=== PATIENT | male | born 1970 | race Caucasian/White ===

== ENCOUNTER 2022-10-06 07:59 | Emergency (ER) | payer OTHER ==
--- OUTSIDE RECORDS SUMMARY | 2022-10-06 08:02 | XMS REPORT | Continuity of Care Document ---
:1970 Author Organization [facility] t Address [address] [place] [address] Care Team Providers Name Role Phone Malina Cruz Attending Clinician Unavailable Navdeep Rodriguez Attending Clinician Unavailable Haley Cabrera Attending Clinician Unavailable Payers Payer Name Policy Type Policy Number Effective Date Expiration Date S [place] [id number] [id number] 2021 Common [facility] 00:00:00 [facility] Blue Cross Blue [id number] 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 [id number] History of Problem Co mmon attention [facility] deficit - [facility] disorder [facility] [id number] Vitamin D Problem Comm on deficiency [facility] Nicotine Nicotine Problem Commo n dependence dependence Sp rachna [facility] [id number] Leukocytos Problem Co mmon is, Spirit unspecifie - [facility] d type [facility] [id number] Elevated Problem Comm on serum Spirit creatinine [facility] Hyperlipid Other Problem Commo n emia hyperlipid [facility] emia [facility] Allergies, Adverse Reactions, Alerts This patient has no known allergies or adverse reactions. Social History Social Habit Start Date Stop Date Quantity Comments Source History of Tobacco Current Smoker Co mmon Spirit - [facility] Use [facility] Sex Assigned At Com mon [facility] Smoking Status Start Date Stop Date Source Current Smoker 2022 00:00:00 Common Spiri [facility] Medications Ordered Filled Start Stop Current Ordering Indication Dosage Frequency Signature Comments Components Source Medication Medication Date Date Medication? Clinician (SIG) Name Name Gentamicin Gentamicin 2021-10 No 240mg Common 80mg 80mg 12-06 Spirit 00:: - [facility] levoFLOXaci levoFLOXaci 2021-10- No QD levoFLOXac n 500 MG n 500 MG 11-22 in 500 MG 00:00: 00:00 00 :00 Methocarbam Methocarbam 2021- No 1{table Methocarba ol 500 MG ol 500 MG 12-07 t} mol 500 MG 00:00: 00:00 00 :00 Methocarbam Methocarbam 2021- No 1{table Methocarba ol 500 MG ol 500 MG 12-07 t} mol 500 MG 00:00: 00:00 00 :00 Ciprofloxac Ciprofloxac 2021-0 2- No 1{table BID Ciprofloxa in HCl 500 in HCl 500 23 03-09 t} sherri HCl MG MG 00:00: 00:00 500 MG 00 :00 buPROPion buPROPion 2019-10 No 1{table QD buPROPion HCl ER (XL) HCl ER (XL) 0-27 t_in_ HCl ER 300 MG 300 MG 00:00: e_morni (XL) 300 00 ng} MG Melatonin Melatonin Yes Haley 1 tablet Common Millender at bedtime Spir it as needed - [facility] with food [facility] Benadryl Benadryl Yes Haley 1 capsule C ommon Millender at bedtime Spir it for sleep - [facility] and [facility] Wellbutrin Wellbutrin Yes Haley 1 tablet Common XL XL Millender in the Spirit morning - [facility] Vitamin D3 Vitamin D3 Yes Haley 1 capsule Common Millender Spirit [facility] Benadryl 25 Benadryl 25 No QD Benadryl MG MG 25 MG Unisom Unisom No 1{table QD Unisom SleepTabs SleepTabs t_at_be SleepTabs 25 MG 25 MG dtime_a 25 MG s_neede d} buPROPion buPROPion No buPROPion HCl ER (XL) HCl ER (XL) HCl ER 300 MG 300 MG (XL) 300 MG Benadryl 25 Benadryl 25 No QD Benadryl MG MG 25 MG Unisom Unisom No 1{table QD Unisom SleepTabs SleepTabs t_at_be SleepTabs 25 MG 25 MG dtime_a 25 MG s_neede d} buPROPion buPROPion No buPROPion HCl ER (XL) HCl ER (XL) HCl ER 300 MG 300 MG (XL) 300 MG buPROPion buPROPion No buPROPion HCl ER (XL) HCl ER (XL) HCl ER 300 MG 300 MG (XL) 300 MG Benadryl 25 Benadryl 25 No QD Benadryl MG MG 25 MG Unisom Unisom No 1{table QD Unisom SleepTabs SleepTabs t_at_be SleepTabs 25 MG 25 MG dtime_a 25 MG s_neede d} Benadryl 25 Benadryl 25 No QD Benadryl MG MG 25 MG Unisom Unisom No 1{table QD Unisom SleepTabs SleepTabs t_at_be SleepTabs 25 MG 25 MG dtime_a 25 MG s_neede d} buPROPion buPROPion No buPROPion HCl ER (XL) HCl ER (XL) HCl ER 300 MG 300 MG (XL) 300 MG buPROPion buPROPion No buPROPion HCl ER (XL) HCl ER (XL) HCl ER 300 MG 300 MG (XL) 300 MG Unisom Unisom No 1{table QD Unisom SleepTabs SleepTabs t_at_be SleepTabs 25 MG 25 MG dtime_a 25 MG s_neede d} Benadryl 25 Benadryl 25 No QD Benadryl MG MG 25 MG Benadryl 25 Benadryl 25 No QD Benadryl MG MG 25 MG buPROPion buPROPion No buPROPion HCl ER (XL) HCl ER (XL) HCl ER 300 MG 300 MG (XL) 300 MG Benadryl 25 Benadryl 25 No QD Benadryl MG MG 25 MG Benadryl 25 Benadryl 25 No QD Benadryl MG MG 25 MG buPROPion buPROPion No buPROPion HCl ER (XL) HCl ER (XL) HCl ER 300 MG 300 MG (XL) 300 MG Benadryl 25 Benadryl 25 No QD Benadryl MG MG 25 MG buPROPion buPROPion No buPROPion HCl ER (XL) HCl ER (XL) HCl ER 300 MG 300 MG (XL) 300 MG buPROPion buPROPion No buPROPion HCl ER (XL) HCl ER (XL) HCl ER 300 MG 300 MG (XL) 300 MG Benadryl 25 Benadryl 25 No QD Benadryl MG MG 25 MG Vital Signs Vital Name Observation Time Observation Value Comments Source height 2022 16:00:00 70 [in_i] [facility] weight 2022 16:00:00 195 [lb_av] [facility] temperature 2022 16:00:00 97.2 [degF] Common [facility] bmi 2022 16:00:00 27.98 kg/m2 Common [facility] oximetry 2022 16:00:00 99 % Common [facility] respiratory rate 2022 16:00:00 18 /min Comm on [facility] blood pressure 2022 16:00:00 143 mm[Hg] Common [facility] - systolic [facility] blood pressure 2022 16:00:00 79 mm[Hg] Common [facility] - diastolic [facility] height 2022-08-16 08:00:00 70 [in_i] [facility] weight 2022-08-16 08:00:00 190 [lb_av] [facility] temperature 2022-08-16 08:00:00 98.1 [degF] [facility] bmi 2022-08-16 08:00:00 27.26 kg/m2 [facility] oximetry 2022-08-16 08:00:00 98 % Common [facility] respiratory rate 2022-08-16 08:00:00 17 /min Comm on [facility] blood pressure 2022-08-16 08:00:00 120 mm[Hg] Common [facility] - systolic [facility] blood pressure 2022-08-16 08:00:00 76 mm[Hg] Common [facility] - diastolic [facility] height 2022-06-28 08:00:00 69.75 [in_i] Common [facility] weight 2022-06-28 08:00:00 192.2 [lb_av] [facility] temperature 2022-06-28 08:00:00 97.3 [degF] [facility] bmi 2022-06-28 08:00:00 27.77 kg/m2 Common [facility] oximetry 2022-06-28 08:00:00 100 % Common S [facility] respiratory rate 2022-06-28 08:00:00 16 /min Comm on [facility] blood pressure 2022-06-28 08:00:00 113 mm[Hg] Common [facility] - systolic [facility] blood pressure 2022-06-28 08:00:00 74 mm[Hg] Common [facility] - diastolic [facility] height 2022-06-28 11:30:00 69.75 [in_i] Common [facility] weight 2022-06-28 11:30:00 191.2 [lb_av] [facility] temperature 2022-06-28 11:30:00 98 [degF] Common [facility] bmi 2022-06-28 11:30:00 27.63 kg/m2 Common [facility] oximetry 2022-06-28 11:30:00 93 % Common S [facility] respiratory rate 2022-06-28 11:30:00 16 /min Comm on [facility] blood pressure 2022-06-28 11:30:00 140 mm[Hg] Common [facility] - systolic [facility] blood pressure 2022-06-28 11:30:00 82 mm[Hg] Common [facility] - diastolic [facility] temperature 2022-04-05 08:00:00 97.9 [degF] [facility] bmi 2022-04-05 08:00:00 27.45 kg/m2 Common S [facility] oximetry 2022-04-05 08:00:00 100 % Common S [facility] respiratory rate 2022-04-05 08:00:00 16 /min Comm on [facility] blood pressure 2022-04-05 08:00:00 119 mm[Hg] Common [facility] - systolic [facility] blood pressure 2022-04-05 08:00:00 70 mm[Hg] Common [facility] - diastolic [facility] height 2022-04-05 08:00:00 69.75 [in_i] Common [facility] weight 2022-04-05 08:00:00 190 [lb_av] [facility] height 2022-01-02 09:20:00 69.75 [in_i] Common [facility] weight 2022-01-02 09:20:00 186 [lb_av] Common [facility] temperature 2022-01-02 09:20:00 97.3 [degF] [facility] bmi 2022-01-02 09:20:00 26.88 kg/m2 [facility] oximetry 2022-01-02 09:20:00 100 % [facility] respiratory rate 2022-01-02 09:20:00 16 /min Comm on [facility] blood pressure 2022-01-02 09:20:00 118 mm[Hg] Common [facility] systolic [facility] blood pressure 2022-01-02 09:20:00 75 mm[Hg] Common [facility] diastolic [facility] height 2021-12-07 09:40:00 69.75 [in_i] [facility] weight 2021-12-07 09:40:00 193 [lb_av] [facility] temperature 2021-12-07 09:40:00 97.4 [degF] Common [facility] bmi 2021-12-07 09:40:00 27.89 kg/m2 [facility] oximetry 2021-12-07 09:40:00 100 % [facility] respiratory rate 2021-12-07 09:40:00 16 /min Comm on [facility] blood pressure 2021-12-07 09:40:00 121 mm[Hg] Common [facility] - systolic [facility] blood pressure 2021-12-07 09:40:00 72 mm[Hg] Common [facility] Procedures This patient has no known procedures. Encounters Start End Encounter Admission Attending Care Care Encounter Source Date/Time Date/Time Type Type Clinicians Facility Department ID 2022-08-15 Outpatient [facility], STLMLC STLMLC [id number] Common 07:46:02 Malina [facility] 2022-06-28 Outpatient [facility], STLMLC STLMLC [id number] Common 10:58:00 Malina [facility] 2022-06-27 Outpatient [facility], STLMLC STLMLC [id number] Common 11:36:01 Malina [facility] 2022-06-26 Outpatient [facility]am, STLMLC STLMLC [id number] Common 09:38:00 Malina [facility] 2021-12-29 Outpatient [facility]am, STLMLC STLMLC [id number] Common 08:38:01 Malina [facility] 2021-11-09 Outpatient [facility]am, STLMLC STLMLC [id number] Common 13:42:26 Malina [id number] [facility] 2021-11-09 Outpatient D[facility]am, STLMLC STLMLC [id number] Common 12:38:44 Malina [id number] [facility] 2021-11-09 Outpatient [facility], STLMLC STLMLC [id number] Common 12:36:43 Malina 98096 [facility] 2021-11-09 Outpatient Dallam, STLMLC STLMLC [id number] Common 12:34:21 Malina 26203 [facility] 2021-11-09 Outpatient D[facility]am, STLMLC STLMLC [id number] Common 12:32:54 Malina 09817 [facility] 2021-11-09 Outpatient D[facility]am, STLMLC STLMLC [id number] Common 12:18:23 Malina [id number] [facility] 2021-11-09 Outpatient STLMLC STLMLC [id number] Common 12:16:16 41637 [facility] 2021-11-09 Outpatient Navdeep Rodriguez STLMLC STLMLC [id number] Common 12:11:08 92690 [facility] 2021-11-09 Outpatient Navdeep Rodriguez STLMLC STLMLC [id number] Common 11:59:38 74597 [facility] 2021-11-09 Outpatient Navdeep Rodriguez STLMLC STLMLC [id number] Common 11:59:05 [id number] [facility] 2021-11-09 Outpatient Rick, STLMLC STLMLC [id number] 11:49:32 Haley [id number] [facility] 2022 2022 (PROC) STLMLC STLMLC [id number] Co mmon 00:00:00 00:00:00 Procedure Spir it - [facility] 2022-09-21 2022-09-21 (TEL) STLMLC STLMLC [id number] Co mmon 00:00:00 00:00:00 [facility] 2022-08-16 2022-08-16 PREV VISIT STLMLC STLMLC [id number] Common 00:00:00 00:00:00 EST AGE [facility] 40-64 - [facility] 2022-06-28 2022-06-28 OFFICE STLMLC STLMLC [id number] Co mmon 00:00:00 00:00:00 VISIT EST Spir it PT LEVEL 3 - [facility] 2022-06-28 2022-06-28 OFFICE STLMLC STLMLC [id number] Co mmon 00:00:00 00:00:00 VISIT NEW Spir it PT LEVEL 3 - [facility] 2022-04-05 2022-04-05 OFFICE STLMLC STLMLC [id number] Co mmon 00:00:00 00:00:00 VISIT Spirit ESTAB PT - [facility] LEVEL 4 [facility] 2022-01-10 2022-01-10 (TEL) STLMLC STLMLC [id number] Co mmon 00:00:00 00:00:00 [facility] 2022-01-02 2022-01-02 OFFICE STLMLC STLMLC [id number] Co mmon 00:00:00 00:00:00 VISIT [facility] ESTAB PT - [facility] L[facility] 4 [facility] 2021-12-07 2021-12-07 OFFICE STLMLC STLMLC [id number] Co mmon 00:00:00 00:00:00 VISIT [facility] PT - [facility] LEVEL 4 [facility] 2021-08-16 2021-08-16 (TEL) STLMLC STLMLC [id number] Co mmon 00:00:00 00:00:00 [facility] 2021-06-08 2021-06-08 Outpatient STLMLC STLMLC [id number] Common 00:00:00 00:00:00 [facility] 2020-12-09 2020-12-09 Outpatient STLMLC STLMLC [id number] Common 00:00:00 00:00:00 [facility] 2020-10-20 2020-10-20 Outpatient STLMLC STLMLC [id number] Common 00:00:00 00:00:00 [facility] 2020-10-13 2020-10-13 Outpatient STLMLC STLMLC [id number] Common 00:00:00 00:00:00 [facility] 2020-09-22 2020-09-22 Outpatient STLMLC STLMLC [id number] Common 00:00:00 00:00:00 [facility] 2020-08-10 2020-08-10 Outpatient STLMLC STLMLC [id number] Common 00:00:00 00:00:00 [facility] 2020-01-18 2020-01-18 [facility] [id number] Common 19:41:00 19:41:00 [facility] [address] [facility] 2019-12-25 2019-12-25 [facility] [id number] Common 08:00:00 08:00:00 [facility] [address] [facility] 2019-02-05 2019-02-05 [facility] [id number] Common 10:21:00 10:21:00 [facility] it [facility] 2019-01-23 2019-01-23 Outpatient [facility] [id number] Common 19:19:00 19:19:00 t [facility] [address] Spir [address] [facility] 2019-01-23 2019-01-23 Out[facility] [id number] Common 08:40:00 08:40:00 t [facility] [address] Spir [address] [facility] 2018-02-07 2018-02-07 Out[facility] [id number] Common 10:45:00 10:45:00 t [facility] [address] Sp[facility] [address] [facility] 2018-01-23 2018-01-23 Out[facility] [id number] Common 08:30:00 08:30:00 t [facility] [address] Spir [address] [facility] Results This patient has no known results.
[2022-10-06] MEDS ORDERED: MECLIZINE HCL 12.5 MG TAB ONE (08:31)
[2022-10-06] MEDS ORDERED: ONDANSETRON 4 MG/2 ML VIAL ONE (08:31)
[2022-10-06 08:32] LABS: Absolute Lymphocytes (CBC) 1.6 K/uL (0.7-4.9); Hematocrit 45.3 % (39.6-49.0); MCV 89.9 fL (80-100); MPV 7.1 fL (7.6-11.3); RBC Red Blood Cell Count 5.04 M/uL (4.33-5.43)
--- NOTE | 2022-10-06 08:42 | RAD REPORT ---
EXAM DESCRIPTION: RAD - Chest Single View - 10/06/2022 8:36 am CLINICAL HISTORY: SOB COMPARISON: Chest Single View dated 06/15/2017 FINDINGS: Lines: None. Lungs: No evidence of edema or pneumonia. Pleural: No significant pleural effusions or pneumothorax. Cardiac: The heart size is within normal limits. Mediastinum: Within normal limits. Bones: No acute fractures. Other: None IMPRESSION: No acute cardiopulmonary disease.
--- NOTE | 2022-10-06 08:42 | RAD REPORT ---
EXAM DESCRIPTION: CT - Head Brain Wo Cont - 10/06/2022 8:23 am CLINICAL HISTORY: dizziness COMPARISON: Head Brain Wo Cont dated 05/04/2022; Head Brain Wo Cont dated 06/15/2017 TECHNIQUE: All CT scans are performed using dose optimization technique as appropriate and may inclu de automated exposure control or mA/KV adjustment according to patient size. FINDINGS: No intracranial hemorrhage, hydrocephalus or extra-axial fluid collection.No areas of brai n edema or evidence of midline shift. 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 Mild ethmoid air cell thickening. The calvarium is intact. IMPRESSION: No acute intracranial abnormality.
[2022-10-06 08:52] LABS: Potassium 3.8 mmol/L (3.5-5.1); Troponin High Sensitivity 6.8 pg/mL (<58.9)
[2022-10-06] MEDS ORDERED: Ringers Lactate 1,000 ML IV ONE (08:59)
[2022-10-06 09:46] LABS: SARS-COV-2 RT PCR NEGATIVE (NEGATIVE)
--- NOTE | 2022-10-06 10:44 | EDPHYS ---
Physician Documentation [facility] Name: Johnny Priest III Age: 52 yrs Sex: Male : 1970 Arrival Date: 10/06/2022 Time: 08:00 Bed 15 Private MD: ED Physician Benoit Miner HPI: 10/06 08:04 This 52 yrs old Male presents to ER via Ambulatory with complaints of Dizziness, Nausea.[facility] 08:04 Is a 52-year-old male with history of ADHD, manic depression the presents emerged [facility] department with complaints of hot flashes, dizziness. States symptoms are worsened when he stands. Also complains of some nausea but denies vomiting. Denies abdominal pain. Patient is 1 day status post prostate biopsy. Denies any rectal bleeding. Patient states he was advised to go to the ER if he developed any dizziness or weakness. Patient states that last night he was having difficulty with sleep.. Historical: - Allergies: 08:13 NKA; ss - Home Meds: 08:13 Wellbutrin 150 mg Oral 200 mg daily [Active]; ss - PMHx: 08:13 ADD/ADHD; MANIC DEPRESSION; ss - PSHx: 08:14 prostate biopsy; ss - Immunization history:: Client reports receiving the 1st dose of the Covid vaccine. - Social history:: Smoking status: Patient reports the use of cigarette tobacco products, 3/4 ppd. ROS: 08:04 Cardiovascular: Negative for chest pain, palpitations, and edema, Respiratory: Negative [facility] for shortness of breath, cough, wheezing, and pleuritic chest pain. 08:04 Constitutional: Positive for chills, fatigue. 08:04 Cardiovascular: Positive for 08:04 Respiratory: 08:04 Abdomen/GI: Positive for nausea. 08:04 Neuro: Positive for dizziness. 08:04 All other systems are negative. Exam: 08:04 Head/Face: atraumatic. [facility] 08:04 ENT: Moist Mucus Membranes Neck: Trachea midline, Supple Chest/axilla: Normal chest wall appearance and motion. Cardiovascular: Regular rate and rhythm. No edema appreciated Respiratory: Normal respirations, no respiratory distress appreciated Abdomen/GI: Non distended Back: Normal ROM Skin: General appearance color normal MS/ Extremity: Moves all extremities, no obvious deformities appreciated, no edema noted to the lower extremities 08:04 Constitutional: The patient appears in no acute distress, alert, awake. 08:04 Eyes: Extraocular movements: intact throughout, Nystagmus: nystagmus with fast component noted, bilaterally. 08:04 Neuro: Orientation: is normal, Mentation: is normal, Memory: is normal, Cerebellar function: normal finger to nose testing, heel to shah testing is normal. 08:04 Psych: Behavior/mood is pleasant, cooperative. Vital Signs: 08:01 BP 126 / 83; Pulse 88; Resp 16; Temp 97.8(TE); Pulse Ox 100% on R/A; Weight 88.45 kg; ss Height 5 ft. 10 in. (177.80 cm); Pain 0/10; 08:45 BP 112 / 74; Pulse 74; Resp 16; Pulse Ox 96% on R/A; db 09:30 BP 105 / 57; Pulse 79; Resp 18; Pulse Ox 100% on R/A; db 10:15 BP 108 / 74; Pulse 68; Resp 16; Pulse Ox 100% on R/A; db 08:01 Body Mass Index 27.98 (88.45 kg, 177.80 cm) ss MDM: 08:04 Patient medically screened. [facility] 10:42 Data reviewed: vital signs, nurses notes. Counseling: I had a detailed discussion with justino the patient and/or guardian regarding: the historical points, exam findings, and any diagnostic results supporting the discharge/admit diagnosis, lab results, radiology results, the need for outpatient follow up, to return to the emergency department if symptoms worsen or persist or if there are any questions or concerns that arise at home. 10/06 08:09 Order name: Basic Metabolic Panel; Complete Time: 08:58 [facility] 10/06 08:09 Order name: CBC with Diff; Complete Time: 08:37 [facility] 10/06 08:09 Order name: Troponin HS; Complete Time: 08:58 [facility] 10/06 08:09 Order name: XRAY Chest (1 view); Complete Time: 08:44 [facility] 10/06 08:09 Order name: CT Head Brain wo Cont; Complete Time: 08:44 [facility] 10/06 08:10 Order name: COVID-19/FLU A+B; Complete Time: 09:54 [facility] 10/06 08:09 Order name: EKG; Complete Time: 08:09 [facility] 10/06 08:09 Order name: Cardiac monitoring; Complete Time: 08:49 [facility] 10/06 08:09 Order name: EKG - Nurse/Tech; Complete Time: 08:49 [facility] 10/06 08:09 Order name: IV Saline Lock; Complete Time: 08:34 [facility] 10/06 08:09 Order name: Labs collected and sent; Complete Time: 08:49 [facility] 10/06 08:09 Order name: O2 Per Protocol; Complete Time: 08:49 [facility] 10/06 08:09 Order name: O2 Sat Monitoring; Complete Time: 08:49 [facility] Administered Medications: 08:38 Drug: Meclizine 50 mg Route: PO; db 10:56 Follow up: Response: Other; Other dizziness improved db 08:38 Drug: Zofran (Ondansetron) 4 mg Route: IVP; Site: right antecubital; db 10:56 Follow up: Response: No adverse reaction db 08:58 Drug: Lactated Ringers Solution 1000 ml Route: IV; Rate: 1000 bolus; Site: right db antecubital; 10:56 Follow up: Response: No adverse reaction; IV Status: Completed infusion; IV Intake: db 1000ml Disposition: 18:00 Co-signature as Attending Physician, Benoit Miner DO I was immediately available on-site ms3 in the Emergency Department for consultation in the care of the patient. Disposition Summary: 10/06/22 10:43 Discharge Ordered Location: Home [facility] Condition: Stable [facility] Diagnosis - Dizziness [facility] Followup: [facility] - With: Brandon Holloway MD - When: 2 - 3 days - Reason: Recheck today's complaints, Continuance of care, Re-evaluation by your physician Discharge Instructions: - Discharge Summary Sheet [facility] - Benign Positional Vertigo m - Dizziness [facility] - How to Perform the Lizeth Maneuver [facility] Forms: - Medication Reconciliation Form [facility] - Thank You Letter [facility] - Antibiotic Education m - Prescription Opioid Use [facility] - Work release form eb Prescriptions: - Meclizine 25 mg Oral Tablet - take 1 tablet by ORAL route every 8 hours As needed; 30 tablet; Refills: 0, jmm Product Selection Permitted Signatures: Dispatcher [employer] EDRich Hopkins PA PA jmm Smirch, Shelby, RN RN ss Benoit Miner DO DO ms3 Delia Yung RN RN db Corrections: (The following items were deleted from the chart) 08:14 08:13 PSHx: Appendectomy; [facility]
--- NOTE | 2022-10-06 10:44 | ER ---
Nurse's Notes [facility] Name: Johnny Priest III Age: 52 yrs Sex: Male : 1970 Arrival Date: 10/06/2022 Time: 08:00 Bed 15 Private MD: Diagnosis: Dizziness Presentation: 10/06 08:01 Chief complaint: Patient states: "I had a prostate biopsy yesterday and they told me ss that if I had any dizziness to come get checked out." Pt c/o dizziness, intermittent nausea and hot flashes that began this morning. Denies fever. Coronavirus screen: Client denies travel out of the [place] in the last 14 days. Ebola Screen: Patient denies exposure to infectious person. Patient denies travel to an Ebola-affected area in the 21 days before illness onset. Initial Sepsis Screen: Does the patient meet any 2 criteria? No. Patient's initial sepsis screen is negative. Does the patient have a suspected source of infection? No. Patient's initial sepsis screen is negative. Risk Assessment: Do you want to hurt yourself or someone else? Patient reports no desire to harm self or others. Onset of symptoms was October 06, 2022. 08:01 Method Of Arrival: Ambulatory ss 08:01 Acuity: K[place] 3 ss Triage Assessment: 11:08 General: Appears in no apparent distress. comfortable, Behavior is calm, cooperative, db appropriate for age. GI: No deficits noted. No signs and/or symptoms were reported involving the gastrointestinal system. Reports Patient currently denies abdominal pain. Historical: - Allergies: 08:13 NKA; ss - Home Meds: 08:13 Wellbutrin 150 mg Oral 200 mg daily [Active]; ss - PMHx: 08:13 ADD/ADHD; MANIC DEPRESSION; ss - PSHx: 08:14 prostate biopsy; ss - Immunization history:: Client reports receiving the 1st dose of the Covid vaccine. - Social history:: Smoking status: Patient reports the use of cigarette tobacco products, 3/4 ppd. Screenin:23 [facility] ED Fall Risk Assessment (Adult) History of falling in the last 3 months, db including since admission No falls in past 3 months (0 pts) Confusion or Disorientation No (0 pts) Intoxicated or Sedated No (0 pts) Impaired Gait No (0 pts) Mobility Assist Device Used No (0 pt) Altered Elimination No (0 pt) Score/Fall Risk Level 0 - 2 = Low Risk Oriented to surroundings. Abuse screen: Denies threats or abuse. Denies injuries from another. Nutritional screening: No deficits noted. Tuberculosis screening: No symptoms or risk factors identified. Assessment: 08:15 Reassessment: Patient appears in no apparent distress at this time. No changes from db previously documented assessment. Patient and/or family updated on plan of care and expected duration. Pain level reassessed. Patient is alert, oriented x 3, equal unlabored respirations, skin warm/dry/pink. dizziness today that comes and goes. States had prostate biopsy yesterday. Complains of some discomfort at biopsy site. General: Appears in no apparent distress. comfortable, Behavior is calm, cooperative, appropriate for age, quiet. Pain: Complains of pain in prostate. Neuro: No deficits noted. Level of Consciousness is awake, alert, obeys commands, Oriented to person, place, time, situation, Appropriate for age. Cardiovascular: No deficits noted. Respiratory: No deficits noted. Airway is patent Respiratory effort is even, unlabored, Respiratory pattern is regular, symmetrical. GI: Abdomen is flat, non-distended, Patient currently denies abdominal pain. 08:20 Reassessment: patient to CT. db 09:30 Reassessment: Patient appears in no apparent distress at this time. No changes from db previously documented assessment. Patient and/or family updated on plan of care and expected duration. Pain level reassessed. Patient is alert, oriented x 3, equal unlabored respirations, skin warm/dry/pink. 10:55 Reassessment: Patient appears in no apparent distress at this time. No changes from db previously documented assessment. Patient and/or family updated on plan of care and expected duration. Pain level reassessed. Patient is alert, oriented x 3, equal unlabored respirations, skin warm/dry/pink. Patient states feeling better. Patient states symptoms have improved. Vital Signs: 08:01 BP 126 / 83; Pulse 88; Resp 16; Temp 97.8(TE); Pulse Ox 100% on R/A; Weight 88.45 kg; ss Height 5 ft. 10 in. (177.80 cm); Pain 0/10; 08:45 BP 112 / 74; Pulse 74; Resp 16; Pulse Ox 96% on R/A; db 09:30 BP 105 / 57; Pulse 79; Resp 18; Pulse Ox 100% on R/A; db 10:15 BP 108 / 74; Pulse 68; Resp 16; Pulse Ox 100% on R/A; db 08:01 Body Mass Index 27.98 (88.45 kg, 177.80 cm) ED Course: 08:00 Patient arrived in ED. as 08:00 Rich Khan PA is PHCP. m 08:00 Benoit Miner DO is Attending Physician. jmm 08:10 Delia Yung, BIB is Primary Nurse. db 08:13 Triage completed. ss 08:14 Arm band placed on right wrist. ss 08:19 Inserted saline lock: 20 gauge in right antecubital area, using aseptic technique. db Blood collected. 08:24 CT Head Brain wo Cont In Process Unspecified. EDMS 08:38 XRAY Chest (1 view) In Process Unspecified. EDMS 10:43 Brandon Holloway MD is Referral Physician. m 11:07 Patient has correct armband on for positive identification. Placed in gown. Bed in low db position. Call light in reach. Side rails up X 1. Pulse ox on. NIBP on. 11:07 No provider procedures requiring assistance completed. IV discontinued, intact, db bleeding controlled, No redness/swelling at site. Administered Medications: 08:38 Drug: Meclizine 50 mg Route: PO; db 10:56 Follow up: Response: Other; Other dizziness improved db 08:38 Drug: Zofran (Ondansetron) 4 mg Route: IVP; Site: right antecubital; db 10:56 Follow up: Response: No adverse reaction db 08:58 Drug: Lactated Ringers Solution 1000 ml Route: IV; Rate: 1000 bolus; Site: right db antecubital; 10:56 Follow up: Response: No adverse reaction; IV Status: Completed infusion; IV Intake: db 1000ml Medication: 11:08 VIS not applicable for this client. db Intake: 10:56 IV: 1000ml; Total: 1000ml. db Outcome: 10:43 Discharge ordered by . jmm 11:07 Discharged to home ambulatory. db 11:07 Condition: stable 11:07 Discharge instructions given to patient, Instructed on discharge instructions, Prescriptions given X 1. 11:08 Patient left the ED. db Signatures: Dispatcher [employer] EDMS Rich Khan PA PA jmm Martinez, Amelia as Smirch, Shelby, RN RN Delia Yung RN RN db Corrections: (The following items were deleted from the chart) 08:14 08:13 PSHx: Appendectomy; [facility] 10:55 09:30 Reassessment: Patient appears in no apparent distress at this time. No changes db from previously documented assessment. Patient and/or family updated on plan of care and expected duration. Pain level reassessed. Patient is alert, oriented x 3, equal unlabored respirations, skin warm/dry/pink. Patient states feeling better. Patient states symptoms have improved. db
[2022-10-06 11:32] VITALS: TEMP 97.8
[2022-10-06 11:34] VITALS: O2SAT 100
[2022-10-06 11:35] VITALS: BP 108/74
--- NOTE | 2022-10-08 17:04 | EKG ---
Test Date: 2022-10-06 Test Time: 08:44:01 Director Prospect: KIM MEASUREMENT RESULTS: Intervals: Rate: 76 OH: 152 QRSD: 108 QT: 382 QTc: 429 [place]: P: 61 OH: 152 QRS: 16 T: 44 INTERPRETIVE STATEMENTS: Normal sinus rhythm Possible Left atrial enlargement Incomplete right bundle branch block Borderline ECG Compared to ECG 06/15/2017 12:41:51 Incomplete right bundle-branch block now present Sinus bradycardia no longer present Electronically Signed On 10-08-22 17:02:29 [employer]TER by Ta Casarez
== END 2022-10-06 11:08 | disposition home or self-care (01) ==
LOC: ER 07:59
DX: R42 Dizziness and giddiness (principal); Z20.822 Contact with and (suspected) exposure to COVID-19; F17.210 Nicotine dependence, cigarettes, uncomplicated; F33.9 Major depressive disorder, recurrent, unspecified
CPT/HCPCS: 96361; 93005; 85025; 80048; 36415; 84484; 0240U; 70450; 71045; 96374; 99284; J8597; J7120; J2405

== ENCOUNTER 2023-05-18 12:42 | Emergency (ER) | payer OTHER ==
--- OUTSIDE RECORDS SUMMARY | 2023-05-18 12:47 | XMS REPORT | Continuity of Care Document ---
:1970 Author Organization [facility] t Address [address] [place] [address] Care Team Providers Name Role Phone MALINA KILLIAN Primary Care Physician Unavailable Malina Killian Attending Clinician Unavailable Navdeep Rodriguez Attending Clinician Unavailable Haley Cabrera Attending Clinician Unavailable RITA HUBBARD Attending Clinician Unavailable Rita Hubbard MD Attending Clinician Caren Coy MD Attending Clinician Unavailable Beto Huerta Attending Clinician [phone] RITA HUBBARD Admitting Clinician Unavailable Payers Payer Name Policy Type Policy Number Effective Date Expiration Date S michael [employer]ET[employer] HMO POS [id number] 2023 QPOS 00:00:00 [place] [id number] 2021 [facility] 00:00:00 [facility] Blue Cross Blue 6 [id number] 2013 Common [facility] of [place] 00:00:00 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 with with 00:00: Medical intermedia intermedia 00 Ce nter te te recurrence recurrence risk risk (stage (stage T2b-c or T2b-c or [place] 7 [place] 7 or PSA or PSA 10-20) 10-20) [id number] Elevated Problem Comm on PSA [facility] [id number] Prostate Problem Com mon nodule 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 [id number] Bipolar Problem Common affective [facility] disorder, [facility] remission [facility] unspecif Medica l d Center [id number] Hypertrigl Problem Co mmon yceridemia [facility] [id number] Abnormal Problem Comm on urinalysis [facility] [id number] Insomnia, Problem Com mon unspecifie Spirit d type [facility] [id number] Excessive Problem Com mon cerumen in [facility] right ear - [facility] canal [facility] [id number] History of Problem Co mmon attention [facility] deficit - [facility]I disorder [facility] [id number] Vitamin D Problem Comm on deficiency [facility] Nicotine Nicotine Problem Commo n dependence dependence Sp rachna [facility] [id number] Leukocytos Problem Co mmon is, Spirit unspecifie - [facility] d [facility] [id number] Elevated Problem Comm on serum Spirit creatinine [facility] Hyperlipid Other Problem Commo n emia hyperlipid [facility] emia [facility] Allergies, Adverse Reactions, Alerts Allergy Allergy Status Severity Reaction(s) Onset Inactive Treating Comm ents Source Name Type Date Date Clinician NO KNOWN Allergy Active [facility] Social History Social Habit Start Date Stop Date Quantity Comments Source History of tobacco Cigarette Smoker [facility] History SDOH [facility] Transport Non-[facility] Medical Center Alcohol intake 2023-02-27 2023-02-27 Ex-drinker [facility]:00 (finding) Medical Center History [facility] 2023-02-27 2023-02-[address] [facility] Transport Med 00:00:00 00:00:[address] [facility] 2023-02-27 2023-02-[address] [facility] Housing Unable to 00:00:00 00:00:00 Medical Center Pay History [facility] 2023-02-27 2023-02-[address] [facility] Housing Places 00:00:00 00:00:00 Medical Ce nter Lived History [facility] 2023-02-27 2023-02-[address] [facility] Housing Homeless 00:00:00 00:00:00 Medical Center Last Year Cigarettes smoked 2023-02-19 2023-02-[address] [facility] [address] Ludee dee current (pack per 00:00:00 00:00:00 Medical Center day) - Reported Cigarette 2023-02-19 2023-02-[address] [facility] [address] Ludee dee pack-years 00:00:00 00:00:00 Medical Center Tobacco use and 2023-02-19 2023-02-19 User of smokeless [facility] exposure 00:00:00 00:00:00 tobacco Medical Center Sex Assigned At [birth year] M [facility] St Ellie tiwaris 00:00:00 00:00:00 Medical Center Smoking Status Start Date Stop Date Source Smokes tobacco daily 2023-02-19 00:00:00 [facility] Medications Ordered Filled Start Stop Current Ordering Indication Dosage Frequency Signature Comments Components Source Medication Medication Date Date Medication? Clinician (SIG) Name Name buPROPion Yes 300mg QD Take 1 [facility] S t (WELLBUTRIN 5-16 tablet [facility]ukes XL) 300 MG 15:41: (300 mg Medi abby 24 hr 31 total) by Center tablet mouth in the morning. diphenhydrA Yes 50mg Take [address] MINE 5-16 capsule Lukes (BENADRYL) 15:41: (50 mg Medic al 50 MG 31 total) by Center capsule mouth every night as needed for Itching. magnesium Yes 30mL QD Take 30 [facility] S t hydroxide 5-16 mLs by Lukes (MILK OF 00:00: mouth in Medic al MAGNESIA) 00 the Center 400 mg/5 mL morning. Susp polyethylen 2022- No 17g QD Take [address] e glycol 02-27-30 by mouth [facility]ukes (GLYCOLAX) 00:00: 23:59 nightly Med ical 17 gram 00 :00 for 14 Center packet days. docusate 2022- No 100mg Q.5D Take 1 [facility]I S t sodium 02-27- capsule Lukes (COLACE) 00:00: 23:59 (100 mg Medic al 100 MG 00 :00 total) by Center capsule mouth in the morning and 1 capsule (100 mg total) before bedtime. Do all this for 14 days. traMADoL No 50mg Take [address] (ULTRAM) 50 02-27- tablet (50 L ukes mg tablet 00:00: 23:59 mg total) Me dical 00 :00 by mouth Center every 6 (six) hours as needed for Pain for up to 10 days. Max Daily Amount: 200 mg ciprofloxac No 500mg Q.5D Take [address] in HCl 02-27 tablet [facility]ukes (CIPRO) 500 00:00: 23:59 (500 mg Me dical MG tablet 00 :00 total) by [facility] mouth in the morning and 1 tablet (500 mg total) before bedtime. Do all this for 3 days. Start day before appointmen t for sanchez removal. Gentamicin Gentamicin 2021-10 No 240mg Common 80mg 80mg 12-06 Spirit 00:00: - [facility]I 00 [facility] Gentamicin Gentamicin 2021-10 No 240mg Common 80mg 80mg 12-06 Spirit 00:00: - [facility]I 00 [facility] levoFLOXaci levoFLOXaci 2021-10- No QD levoFLOXac n 500 MG n 500 MG 11-22- in 500 MG 00:00: 00:00 00 :00 Methocarbam Methocarbam 2021- No 1{table Methocarba ol 500 MG ol 500 MG 12-07 03-25 t} mol 500 MG 00:00: 00:00 00 :00 Methocarbam Methocarbam 2021- No 1{table Methocarba ol 500 MG ol 500 MG 12-07 t} mol 500 MG 00:00: 00:00 00 :00 Ciprofloxac Ciprofloxac 2021- No 1{table BID Ciprofloxa in HCl 500 in HCl 500 12-07 t} sherri HCl MG MG 00:00: 00:00 500 MG 00 :00 buPROPion buPROPion 2019-10 No 1{table QD buPROPion HCl ER (XL) HCl ER (XL) 0- t_in_ HCl ER 300 MG 300 MG 00:00: e_morni (XL) 300 00 ng} MG Melatonin Melatonin Yes Haley 1 tablet Common Millender at bedtime Spir it as needed - [facility]I with food [facility] Benadryl Benadryl Yes Haley 1 capsule C ommon Millender at bedtime Spir it for sleep - [facility]I and [facility] Wellbutrin Wellbutrin Yes Haley 1 tablet Common XL XL Millender in the Spirit morning - CHI [facility] Vitamin D3 Vitamin D3 Yes Haley 1 capsule Common Millender Spirit - [facility] Benadryl 25 Benadryl 25 No [...] 300 MG 300 MG (XL) 300 MG Uniso Unisom No 1{table QD Unisom SleepTabs SleepTabs t_at_be SleepTabs 25 MG 25 MG dtime_a 25 MG s_neede d} Benadryl 25 Benadryl 25 No QD Benadryl MG MG 25 MG buPROPion buPROPion No buPROPion HCl ER (XL) HCl ER (XL) HCl ER 300 MG 300 MG (XL) 300 MG Uniso Unisom No 1{table QD Unisom SleepTabs SleepTabs [...] Name Observation Time Observation Value Comments Source HEIGHT 2023-02-26 11:20:00 177.8 cm WEIGHT 2023-02-26 11:20:00 89.9 kg HEIGHT 2023-02-19 13:42:00 175.3 cm WEIGHT 2023-02-19 13:42:00 90.719 kg HEIGHT 2023-02-26 11:20:00 177.8 cm WEIGHT 2023-02-26 11:20:00 89.9 kg HEIGHT 2023-02-19 13:42:00 175.3 cm WEIGHT 2023-02-19 13:42:00 90.719 kg HEIGHT 2023-02-26 11:20:00 177.8 cm WEIGHT 2023-02-26 11:20:00 89.9 kg HEIGHT 2023-02-19 13:42:00 175.3 cm WEIGHT 2023-02-19 13:42:00 90.719 kg height 2022-10-20 09:15:00 70 [in_i] [facility] weight 2022-10-20 09:15:00 193.2 [lb_av] [facility] temperature 2022-10-20 09:15:00 97.7 [degF] [facility] bmi 2022-10-20 09:15:00 27.72 kg/m2 [facility] oximetry 2022-10-20 09:15:00 99 % [facility] respiratory rate 2022-10-20 09:15:00 18 /min Comm on [facility] blood pressure 2022-10-20 09:15:00 136 mm[Hg] Common [facility] - systolic [facility] blood pressure 2022-10-20 09:15:00 74 mm[Hg] [facility] diastolic [facility] height 2022 16:00:00 70 [in_i] [facility] weight 2022 16:00:00 195 [lb_av] Common [facility] temperature 2022 16:00:00 97.2 [degF] Common [facility] bmi 2022 16:00:00 27.98 kg/m2 [facility] oximetry 2022 16:00:00 99 % [facility] respiratory rate 2022 16:00:00 18 /min Comm on [facility] blood pressure 2022 16:00:00 143 mm[Hg] Common [facility] - systolic [facility] blood pressure 2022 16:00:00 79 mm[Hg] [facility] diastolic [facility] height 2022-08-16 08:00:00 70 [in_i] [facility] weight 2022-08-16 08:00:00 190 [lb_av] [facility] temperature 2022-08-16 08:00:00 98.1 [degF] [facility] bmi 2022-08-16 08:00:00 27.26 kg/m2 [facility] oximetry 2022-08-16 08:00:00 98 % [facility] respiratory rate 2022-08-16 08:00:00 17 /min Comm on [facility] blood pressure 2022-08-16 08:00:00 120 mm[Hg] Common [facility] - systolic [facility] blood pressure 2022-08-16 08:00:00 76 mm[Hg] Common [facility] - diastolic [facility] height 2022-06-28 08:00:00 69.75 [in_i] [facility] weight 2022-06-28 08:00:00 192.2 [lb_av] [facility] temperature 2022-06-28 08:00:00 97.3 [degF] Common S pirit - [facility] bmi 2022-06-28 08:00:00 27.77 kg/m2 [facility] oximetry 2022-06-28 08:00:00 100 % Common S [facility] respiratory rate 2022-06-28 08:00:00 16 /min Comm on [facility] blood pressure 2022-06-28 08:00:00 113 mm[Hg] Common [facility] - systolic [facility] blood pressure 2022-06-28 08:00:00 74 mm[Hg] Common [facility] - diastolic [facility] height 2022-06-28 11:30:00 69.75 [in_i] Common [facility] weight 2022-06-28 11:30:00 191.2 [lb_av] [facility] temperature 2022-06-28 11:30:00 98 [degF] [facility] bmi 2022-06-28 11:30:00 27.63 kg/m2 Common S [facility] oximetry 2022-06-28 11:30:00 93 % [facility] S [facility] respiratory rate 2022-06-28 11:30:00 16 /min Comm on [facility] blood pressure 2022-06-28 11:30:00 140 mm[Hg] Common [facility] - systolic [facility] blood pressure 2022-06-28 11:30:00 82 mm[Hg] Common [facility] - diastolic [facility] temperature 2022-04-05 08:00:00 97.9 [degF] [facility] bmi 2022-04-05 08:00:00 27.45 kg/m2 Common S [facility] oximetry 2022-04-05 08:00:00 100 % Common S [facility] respiratory rate 2022-04-05 08:00:00 16 /min Comm on [facility] blood pressure 2022-04-05 08:00:00 119 mm[Hg] Common [facility] - systolic [facility] blood pressure 2022-04-05 08:00:00 70 mm[Hg] Common [facility] - diastolic [facility] height 2022-04-05 08:00:00 69.75 [in_i] Common [facility] weight 2022-04-05 08:00:00 190 [lb_av] Common [facility] height 2022-01-02 09:20:00 69.75 [in_i] Common [facility] weight 2022-01-02 09:20:00 186 [lb_av] [facility] temperature 2022-01-02 09:20:00 97.3 [degF] [facility] bmi 2022-01-02 09:20:00 26.88 kg/m2 [facility] oximetry 2022-01-02 09:20:00 100 % [facility] respiratory rate 2022-01-02 09:20:00 16 /min Comm on [facility] blood pressure 2022-01-02 09:20:00 118 mm[Hg] Common [facility] - systolic [facility] blood pressure 2022-01-02 09:20:00 75 mm[Hg] Common [facility] - diastolic [facility] height 2021-12-07 09:40:00 69.75 [in_i] Common [facility] weight 2021-12-07 09:40:00 193 [lb_av] [facility] temperature 2021-12-07 09:40:00 97.4 [degF] [facility] bmi 2021-12-07 09:40:00 27.89 kg/m2 [facility] oximetry 2021-12-07 09:40:00 100 % [facility] respiratory rate 2021-12-07 09:40:00 16 /min Comm on [facility] blood pressure 2021-12-07 09:40:00 121 mm[Hg] Common [facility] - systolic [facility] blood pressure 2021-12-07 09:40:00 72 mm[Hg] Common [facility] - diastolic [facility] Heart rate 2023-02-27 11:54:27 89 /min [facility] Respiratory rate 2023-02-27 11:54:27 18 /min [facility] Oxygen saturation in 2023-02-27 11:54:27 99 /min [facility] Arterial blood by Medical Ce nter Pulse oximetry Body temperature 2023-02-27 11:53:43 36.72 Carmen [facility] Systolic blood 2023-02-27 11:53:30 113 mm[Hg] [facility] Diastolic blood 2023-02-27 11:53:30 69 mm[Hg] [facility] Body height 2023-02-26 11:20:00 177.8 cm [facility] Body weight 2023-02-26 11:20:00 89.9 kg [facility] BMI 2023-02-26 11:20:00 28.44 kg/m2 [facility] Procedures Procedure Date / Time Performed Performing Clinician [facility] derek CBC (HEMOGRAM ONLY) 2023-02-27 04:48:00 [facility] BASIC METABOLIC PANEL 2023-02-27 04:48:00 [facility] CBC (HEMOGRAM ONLY) 2023-02-26 21:27:00 [facility] BASIC METABOLIC PANEL 2023-02-26 21:27:00 [facility] TISSUE EXAM 2023-02-26 17:16:00 Rita Hubbard [facility] RRL CRITICAL LABS 2023-02-26 16:47:31 Rita Hubbard [facility] (ABG,NA,K,H&H,GLUCOSE) Medical C enter CALCIUM, IONIZED 2023-02-26 16:47:31 Rita Hubbard [facility] BLOOD GAS, ARTERIAL 2023-02-26 16:47:31 Rita Hubbard [facility] SODIUM NA-STAT LAB 2023-02-26 16:47:31 Rita Hubbard [facility] POTASSIUM-STAT LAB 2023-02-26 16:47:31 Rita Hubbard [facility] GLUCOSE-STAT LAB 2023-02-26 16:47:31 Rita Hubbard [facility] HGB/HCT (H&H) - STAT LAB 2023-02-26 16:47:31 Rita Hubbard C HI [facility] ROBOTIC 2023-02-26 15:22:00 Rita Hubbard [facility] es LAPAROSCOPY,RADICAL Medical Cent er PROSTATECTOMY PROCEDURE W/ DAVINCI XI 2023-02-26 15:22:00 Rita Hubbard CH I [facility] ABORH, MANUAL 2023-02-26 11:59:00 Laura Washington [facility] TYPE AND SCREEN, 2023-02-26 11:36:00 Ady Smiley [facility] Plan of Care Planned Activity Planned Date Details Comments Source Future Scheduled 2024-02-[address] [facility] Test 00:00:00 Counseling and Screening [facility] (12+) [code = Tobacco Cessation Counseling and Screening (12+)] Future Scheduled 2023-06-15 Influenza Vaccine (#1) [facility] 00:00:00 [code = Influenza Vaccine [facility] Center (#1)] Future Scheduled 2022-10-[address] [facility] Test 00:00:00 (12+) [code = DEPRESSION [facility] SCREENING (12+)] Future Scheduled 2019 Screening for malignant [facility] Test 00:00:00 neoplasm of lung Medical Donna ter (procedure) [code = 246605166] Future Scheduled 2019 SHINGLES VACCINES ([address] [facility] Test 00:00:00 2) [code = SHINGLES [facility] VACCINES (1 of 2)] Future Scheduled 2004 Lipid panel (procedure) [facility] Test 00:00:00 [code = 60794705] Medical Ce nter Future Scheduled 1988 DTAP/TDAP/TD VACCINES ([address] [facility] Test 00:00:00 - Tdap) [code = Medical Cent er DTAP/TDAP/TD VACCINES (1 - Tdap)] Future Scheduled 1987 HEPATITIS C SCREENING [facility] Test 00:00:00 [code = HEPATITIS C Medical Center SCREENING] Future Scheduled [address] [facility] Test 00:00:00 virus screening Medical Cent er (procedure) [code = 099829199] Future Scheduled 1975 Pneumococcal Vaccine: [facility] Test 00:00:00 0-64 Years (1 - PCV) Medical Center [code = Pneumococcal Vaccine: 0-64 Years (1 - PCV)] Future Scheduled 1970-04-05 COVID-19 VACCINE (#1) [facility] Test 00:00:00 [code = COVID-19 VACCINE Med [facility] Center (#1)] Future Scheduled 1969 CT Colonography (combo) [facility] Test 00:00:00 [code = CT Colonography [facility] (combo)] Future Scheduled 1969 Screening for malignant [facility] Test 00:00:00 neoplasm of colon Medical Ce nter (procedure) [code = 603544762] Future Scheduled 1969 Screening for malignant [facility] Test 00:00:00 neoplasm of colon Medical Ce nter (procedure) [code = 737456078] Future Scheduled 1969 Screening for malignant [facility] Test 00:00:00 neoplasm of colon Medical Ce nter (procedure) [code = 125597184] Future Scheduled 1969 Screening for malignant [facility] Test 00:00:00 neoplasm of colon Medical Ce nter (procedure) [code = 010997165] Future Scheduled 1970 Sigmoidoscopy [code = [facility] Test 00:00:00 Sigmoidoscopy] Medical Cente r Encounters Start End Encounter Admission Attending Care Care Encounter Source Date/Time Date/Time Type Type Clinicians Facility Department ID 2023-02-01 [facility] [id number] Common 09:26:[id number] [facility] 2022-08-[address] [facility] [id number] Common 07:46:[address] [facility] 2022-06-28 Outpatient Judith [place], STLMLC STLMLC [id number] Common 10:58:[address] [facility] 2022-06-27 Outpatient [place], STLMLC STLMLC [id number] Common 11:36:[address] [facility] 2022-06-26 Outpatient [place], STLMLC STLMLC [id number] Common 09:38:[address] [facility] 2021-12-29 Outpatient [place], STLMLC STLMLC [id number] Common 08:38:[address] [facility] 2021-11-09 Outpatient [place], STLMLC STLMLC [id number] Common 13:42:[address] [facility] 2021-11-09 Outpatient [place], STLMLC STLMLC [id number] Common 12:38:[address] [facility] 2021-11-09 Outpatient [place], STLMLC STLMLC [id number] Common 12:36:[address] [facility] 2021-11-09 Outpatient [place], STLMLC STLMLC [id number] Common 12:34:[address] [facility] 2021-11-09 Outpatient [place], STLMLC STLMLC [id number] Common 12:32:[address] [facility] 2021-11-09 Outpatient [place], STLMLC STLMLC [id number] Common 12:18:[id number] [facility] 2021-11-09 Outpatient STLMLC STLMLC [id number] Common 12:16:[id number] [facility] 2021-11-09 Outpatient Navdeep Rodriguez STLMLC STLMLC [id number] Common 12:11:[id number] [facility] 2021-11-09 Outpatient Navdeep Rodriguez STLMLC STLMLC [id number] Common 11:59:[address] [facility] 2021-11-09 [facility] [id number] Common 11:59:05 [id number] Spirit - [facility] 2021-11-09 [facility] [id number] Common 11:49:32 Haley 02410 [facility] - [facility] 2023-02-26 2023-02-27 Outpatient EL HUBBARD, [facility] Surgery [id number] SLE 10:38:00 15:40:00 [place] 2023-02-26 2023-02-27 Hospital Patrick [facility] [id number] 10:38:00 15:40:00 Encounter [facility] 2023-02-27 2023-02-27 Travel [facility] [id number] [facility] 00:[facility]00 00:00:00 [facility] 2023-02-26 2023-02-26 Anesthesia Caren Coy [facility] [id number] [facility] 15:22:00 21:23:00 Event Beto Stallworth [facility] 2023-02-26 2023-02-26 Surgery Patrick [facility] [id number] 14:40:00 20:15:00 [facility] 2023-02-26 2023-02-26 Travel [facility] [id number] [facility] 00:[facility]:00 00:00:00 [facility] 2023-02-19 2023-02-19 Outpatient EL [facility] [id number] SLE 00:00:00 00:00:00 2023-02-19 2023-02-19 Travel [facility] [id number] [facility] 00:[facility]00 00:00:00 [facility] 2022-10-20 2022-10-20 [facility] [id number] Co mmon 00:00:00 00:00:00 VISIT Kranthi LONG PT - CHI LEVEL 5 [facility]22 [facility] [id number] Co mmon 00:00:00 00:00:00 Procedure Spir it - [facility] 2022-09-21 2022-09-21 (TEL) STLMLC STLMLC [id number] Co mmon 00:00:00 00:00:00 [facility] 2022-08-16 2022-08-16 PREV VISIT STLMLC STLMLC [id number] Common 00:00:00 00:00:00 EST AGE Spirit 40-64 - [facility] 2022-06-28 2022-06-28 OFFICE STLMLC STLMLC [id number] Co mmon 00:00:00 00:00:00 VISIT EST Spir it PT LEVEL 3 - [facility] 2022-06-28 2022-06-28 OFFICE STLMLC STLMLC [id number] Co mmon 00:00:00 00:00:00 VISIT NEW Spir it PT LEVEL 3 - [facility] 2022-04-05 2022-04-05 OFFICE STLMLC STLMLC [id number] Co mmon 00:00:00 00:00:00 VISIT [facility] ESTAB PT - CHI LEVEL 4 [facility] 2022-01-10 2022-01-10 (TEL) STLMLC STLMLC [id number] Co mmon 00:00:00 00:00:00 [facility] 2022-01-02 2022-01-02 OFFICE STLMLC STLMLC [id number] Co mmon 00:00:00 00:00:00 VISIT Spirit ESTAB PT - CHI LEVEL 4 [facility] 2021-12-07 2021-12-07 OFFICE STLMLC STLMLC [id number] Co mmon 00:00:00 00:00:00 VISIT Spirit ESTAB PT - CHI LEVEL 4 [facility] 2021-08-16 2021-08-16 (TEL) STLMLC STLMLC [id number] Co mmon 00:00:00 00:00:00 [facility] 2021-06-08 2021-06-08 Outpatient STLMLC STLMLC [id number] Common 00:00:00 00:00:00 [facility] 2020-12-09 2020-12-09 Outpatient STLMLC STLMLC [id number] Common 00:00:00 00:00:00 [facility] 2020-10-20 2020-10-20 Outpatient STLMLC STLMLC [id number] Common 00:00:00 00:00:00 [facility] 2020-10-13 2020-10-13 Outpatient STLMLC STLMLC [id number] Common 00:00:00 00:00:00 [facility] 2020-09-22 2020-09-22 Outpatient STLMLC STLMLC [id number] Common 00:00:00 00:00:00 [facility] 2020-08-10 2020-08-10 Outpatient STLMLC STLMLC [id number] Common 00:00:00 00:00:00 [facility] 2020-01-18 2020-01-18 [facility] [id number] Common 19:41:00 19:41:00 t [facility] [address] [facility] 2019-12-25 2019-12-25 [facility] [id number] Common 08:00:00 08:00:00 t [facility] [address] [facility] 2019-02-05 2019-02-05 [facility] [id number] Common 10:21:00 10:21:[address] [facility] 2019-01-23 2019-01-23 [facility] [id number] Common 19:19:00 19:19:[address] [facility] 2019-01-23 2019-01-23 [facility] [id number] Common 08:40:00 08:40:[address] [facility] 2018-02-07 2018-02-07 [facility] [id number] Common 10:45:00 10:45:[address] [facility] 2018-01-23 2018-01-23 [facility] [id number] Common 08:30:00 08:30:[address] [facility] Results Test Description Test Time Test Comments Results Result Comments Source Tissue Exam 2023-03-23 19:53:03 Test Item Value Reference Range Interpretation Comme nts Case Report (test code = 104) Surgical Pathology Report Case: [id number] Authorizing Provider: Rita Hubbard MD Collected: 02/26/2023 05:16 PM Ordering Location: [facility] PERI[facility] Received: 02/27/2023 08:45 AM SERVICES Pathologist: Oralia Coffman MD Specimens: A) - Lymph Node, ANTERIOR CARMELITA-PROSTATIC LYMPH NODE B) - Bladder, BLADDER NECK MARGIN C) - Soft Tissue, Other, APICAL ANTERIOR MARGIN D) - Bladder, ANTERIOR BLADDER NECK MARGIN E) - Lymph Node, RIGHT PELVIC LYMPH NODES F) - Lymph Node, LEFT PELVIC LYMPH NODES G) - Prostate, PROSTATE AND SEMINAL VESICLES DIAGNOSIS (test code = 3220) k8bilGHiTUVwk3ctZZGydUAjLaIbYhIjSpJzFp pcdWMx GZflzrZsMYamtDwoVOXvDATtTF2nxAbjfXu1cBhjUQCc bmH4qXVcOSjvy9lyZDU2a4faawquELJpTOekIe6drANb mIoaXmFeAVPoHQh3sH91HITgcD4lcXKgUTl7LXRkpWGc upAmIgCbLMQmoCSnbWV7DSNjAR5rlicdWHwbGAxfQZMh diZ8KSQscBEiR4VmKHAfHG7suexdGEX0FReqPLBvQCW7 CcWeQZYyn2Gnezi9GeZytDMmNPxotATmjvwagcAhMLJx WInAAMBLOD1GKDFxQZVHLSBMJW4KBPFHBvjHHr0UBIRT EPOsLLUBT3dRWZ9GNFTonxl8ZEOqGMNBXV7NN90tGlqS Jr4XOYwFN2PNNBBVC1THHTfoKDIghWMlGX3bYj5qJUoT HDnNBYDhRTrEP1AKMCzDSI2LTSFZMGTnbJKcHOLnpnZR BeCHGsaCZEVHWWZOTOBRHDMvPmIDCxIBMUVLTU8dYFGA O6hAQV7SAUXpurr1IEWrYO4EZ5SQTNNTKXXEXpLKSGrM N51LYiCMOJPgNctaMZEktRJcWVRaSZHAF5JPXKOYUEVR LfPIMieXZoMHLBwBUKmdUUTDQ0eBYTDZNZCAX2jMFsdn QCSnpKOsSH4OJPfVRRxAKVEBT0IdJQNJVVnNQZ2PWEts OWBtfCEcVUVsSRUTLV9ODclpHlgVGEOYQwIJCPQOLWUP QiQIYkgCTsOGWNWYNP4jMQOVP3fMQK5MZIQyomz1GJJc UX7HI7YFCXXRRRXHAuHZRYeOO55KFeREJNXcwwvfFQAg QI7sUGfTDEnkWd8ZTLwkVfaTKCAvEYUSJomEABUCZPDO Y3mBEdzrHECrqMWzQU2KPKBRCFXFDQ9ZU62hJXvXRVkl Mo4YQEBlWABhHxlimXMnQYEpxuAZYgJEMJ8FZCHZK0UM JMZBYZLYAOWICJWTXrjiTRjYLKWBT53dgQMeNFIoVzJv SOhYDEHLLlhVHlMYVH7UNNTQE3LUFoPjEhAoWlgnuAWj YUAxtildXVLrEs2oHUEOS4JMKDHmPQTNUb2VSXQlUGON YXUINGJyVRTAUXQKF7FXSUbMESOOTNkYTEiePRYGR5QJ MLJDZP2CKJioxDHoOGzaDoGmBQgkqproUUCvGADIMl3W GMSNMI1ENJXnNNfKCPRGC52nB4TPIwKuMob0HUyiOXzF FEJHIUoQQ3GKXBWnILTABhlXJsURL21HSV6GIDcpLIHv xMhcZTjqqiDpDUZrKZFjYYSqFLJhOH8MQWTRLXFKIHBH XOEQMG8BMR7DO7QHJMVJAKTGPwJTIW5BUsokHMXbpXSo TQ0WSMQwG15UWCHEBYsoMZRzMihmZEFkPqTaHMJrTGHP JV9PRkSSADZUG0lUVIDURUTPL8HHTVdVWVJWO7qVUYNH TGqWWLFMM8JHW3ECXvUKECJFO7DDKQHTB1PRJGJVK1JQ GLa6XFYnhbtsnCydATPbXT3DJAXZAOtIME6TLTCuWUmD G09DD5nINEncCOWqMyvpQEIpelexKHPmGYMiwb76YBO5 XmCvs7B6NGY6ASMgJNCge0yhYBWhxZGlWvWuIrViQqLf DurenWVdNVHaFjMng3cld256pSSlm3rlBEGoWqX3dKQh EZQclPKsB469OPGiZVptd7jjh2HlDSEyuSNdc6R9OIBO rriayEp0qWlrP37sc0T9CassZ5xfXSIpRYXhQ0DsZB0g LOOwCmi2TYE8TTM6ROEgNTExC4WhEK8oGGYijZVyTMu2 k9xhlZygGPUoMMX7t8jnUYltwqRuRX0qfc6geKs8m1zj hoXlVBDlEEJzqMTPXICjO6EkkEtjQs9apIh8wYdcTbvr QER4Jpm0DS1ntx16ttr2hVzvDXRmwgdjIhK5MZhrNUXh bhhiSGr6TZsxROOqnFE2JOSooGNrW8RbLQAaXM5yjse4 GJW8VKpmYGMqKgM8QBBsaOStBPPcsRkaAAolb681PBH0 CzNjML9rW9Nfb0R6rG4plADoMEThdFHlZgUkOLNrlu5w oVGaBTmjw7PcTGA1dvI2nOHscQGrAEMfCrH5MRtaVZ4b pn45GEUeXPQ2pp5naAQjyPzowkKeaFTrOKjnT6HoMDKj q618ZPYsZ0JbSTBki8X8fzFkIdVoQGQnpTT9fiU2VDLp DT1ewxgqi1tlPKanXRpmXTHrbiB8lsG2PJWpbKHsI4Yq aO5yCHDlVQ8keiysz5dlAHF9FWkhITUhHRX4NuBsOFAx a0Nyaqu7BvEbu8RmqKImDPmnE84us276UZIuxbZeV4xw nNFjvzlufWAqobdaTNfxbvG4KCMhRYxwchqkTVWmYNow H8unGbRyZOSzaNfqXLiug6DwJIPiDRVaFkGutNEiVRQl Ygg7YRLwuBBgESTkFeQuK5ckbixdZzKHQOAut9jzZ9bg cCMPtKDwA9PiZTtyfuHoVMnyDHcjBrYlPIx4ON77GlBv LVIdef03 COMMENT (test code = 3359) x2oklGMsDVIbjLSvKWDfJBfixwXhJKIltCOzN6Xv clxq XYtrTS3yHQ5laOrufHVxcBBfHVEbHhNhl6cyb629bSMj u4myIQRRvjikoKa2nJfeL30xo0Z6WmahG45cxEGgPNA9 ZTCjEGHoaPPnOMMcHIZ0RBVttAQxI3wtWKQuTF8yjbmo KDpkXCwtLCVynRU0UICphWWwW7LgHTCqSMekMXFpqrs7 KxOgUr6kgGHsoXilYFeqIEIqFXWaQPgfBCLyXwXfU5Hg jMiufrArc8JsfZvcIXZtg8U2YIXjPNhfapKzLOUqiy4b KRLdmI9quQLjMvHoeWTbiWN6RQXgPEZhy5GpCS4mRClm bq8tcdyiYxRjlNakdABmFMsrpYHvkEKcSGIykRH5j48c op3mIJYtSXHfs88jspIslRPkn0U5yCBajUShqV3eOYZj YLRbmrQ1yKTgrqzwlFLmgG2reGQzf0smnJUtNIngqCFu tWNkXILnoOT7d27cCAPfOMCsaDHuemE7vFE8ksKjAQDj rELxltUbhSZgIANwKS21QXPdzAflQ6hiAMSwcmAzS84v WLScEwBMsTJic30uBFYcr3SwAXHrVLT1PIikUJTAqXJd n6vgeJR7FQi0NLSqIXA5EMFcXrM2lFPtzPKbu1ItiIRe V84hqOMjs1ObQR3gHQvuBSUwn73rkNX7jANvqcW6KkHq LSllNDB1tS8zWOanMVBzroIkiaAoTYJdIRFaBNXrgl6f xBX2AVkris1kTXp9koDuso6kgRE1lUWjXTn0HI8duC3b OWznJBmcXD18gJRwDDTxNREGZCEtytB2agEyZGguscJv mI9iISnaXQiyWI76cGUiDRIqZHX7xQQuldZsoX8noF84 YFKwjMrsnsGiaoTqr3pcjcShscTsIEUjrAqmrVTdTdAm BMajKLH1cbhgU6CsMT9oyoblrhNuFXXdgR3rvdeeFgda GLAqdoUwDMTpRBTfUQIrBX5iiaTxEOZli1izfDTkXGEm BIH2wtiaxy5spmPwCTF0IKI9cZ2fXcpzPVY8 SYNOPTIC REPORT (test code = 5765) PROSTATE GLAND: Radical ProstatectomyPROSTATE GLAND: RADICAL PROSTATECTOMY - All Rfznqrfxu3uk Edition - Protocol posted: 08/24/2021 SPECIMEN Procedure: Radical prostatectomy Prostate Size: Prostate Weight (Grams): 29.5 g Prostate Greatest Dimension (Centimeters): 4 cm Additional Prostate Dimension (Centimeters): 3.5 cm Additional Prostate Dimension (Centimeters): 3 cm TUMOR Histologic Type: Acinar adenocarcinoma Histologic Grade: Grade: Grade group 2 (Belknap Score 3 + 4 = 7) Minor Tertiary Pattern 5 (less than 5%): Not applicable Percentage of Pattern 4: 11 - 20% Intraductal Carcinoma (IDC): Not identified Cribriform Glands: Not identified Treatment Effect: No known presurgical therapy TUMOR QUANTITATION: Estimated Percentage of Prostate Involved by Tumor: 11 - 20% Greatest Dimension of Dominant Nodule (Millimeters): 24 mm Location of Dominant Nodule: Right posterolateral peripheral zone Extraprostatic Extension (EPE): Not identified Urinary Bladder Neck Invasion: Not identified Seminal Vesicle Invasion: Not identified Lymphovascular Invasion: Not Identified Perineural Invasion: Present MARGINS Margin Status: All margins negative for invasive carcinoma REGIONAL LYMPH NODES Regional Lymph Node Status: : All regional lymph nodes negative for tumor Number of Lymph Nodes Examined: 5 PATHOLOGIC STAGE CLASSIFICATION (pTNM, AJCC 8th Edition) Reporting of pT, pN, and (when applicable) pM categories is based on information available to the pathologist at the time the report is issued. As per the AJCC (Chapter 1, 8th Ed.) it is the managi ng physician s responsibility to establish the final pathologic stage based upon all pertinent information, including but potentially not limited to this pathology report. 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) Additional Findings: Nodular prostatic hyperplasia CPT Code(s) (test code = 3357) o1vfnFArJGWzbGBcFELrAZosasZtQWJooFHt Z5Trrzwc BEdjQK5qHX7liKwbyZEayJYpOTTtDjItt4pql895yQTz q0ooVUDHolxsrNn6aBbdE06fa8L4ErafS43zeAQjWJY2 WXOuTEZtoIGtFWPsOAF9OZBukKZnJ0ujGCKbID8qaria LQccLJwiFKHtxCP6LHRorKPrV4JnCCNlKIlfVRBqqtr6 YjErLp5zkCFsrXsiXRxqYUExZZFkCPzoGZCrSdKdGXdg OJD8BAivLTQgFKgxBJa5RmvuYEPcSXqgSKlasYVyTUo6 ZbQyZTGrtkB3PCV0QUkzRZY8 CLINICAL HISTORY (test code = 3356) i3zeaFEuQTFbkQLaUH AuMBuccfMpEEMpbWWzY9Qcafpb EHdrBH1zYI3dgHgloDXzkSXkQRMgUlFwa1fwo765vRXd x9mlYZZNdajoiJf6rJuiG43vg7I2CwnxN9jvXLTsSIbi FFYzFYydkGCxQCn5HLNagRAyesWwIjIzSYUvqTYvtDB1 XRPeKC1ywannGYxcQTyeFFKtsrZ0EFAofSJqC4IhRHYk XN8hybbfCIY5LMapSPNyVFS5AjHjIDAdm2Xmhxm3WnRg hERgROnoeILltVyswP2rSpKqOZaqPcPjFMEes2ZalECp X2DnY6ExTTUmon8= GROSS DESCRIPTION (test code = i7kpuADyCPEnnSNWDITnLDFeDM4yhRcsyHx4 cGdwYXJc [id number]) [file] nOXjUB0FRUTzazYdJMa6 MICROSCOPIC DESCRIPTION (test code v3froSNfNCFcrLCkZUJyJMobp iKxEIXdkDEpR1Vloicn = 3371) GDyqQQ5yFL7rcWpyyYDssLDqTXEtZrDch1xfb176fAGs t5gmRMDGkrdqsCs0tNegG93pd2G0HfdhY40dqVDkELR8 SSOsDQRgeRSyVNLiOPV6BQPypFOfD5chGUVoDB4ujvjw FTdhPEjpRCDzpAE6CKZuqUMfE7ErOKItATznWZSyewt9 UqJcZo5mgXHbsJqvGRgnUKDoGGNpVPmiHTIsEjJjZJ3P MfGZSDTfr0GwJCUjVAMrwjluGSG5 SPECIAL STUDIES (test code = 3376) i1gkmLJiHTXhnCRbFWJyYDliu gRdOSTemHOtE1Rooawm [file] mAYwb2QywA6wuRH2ACF1sJ9mXjbsVXQ3 Gross assessment was performed at [facility], Department (test code = 2777) of Pathology, [address] [place] [address], Technical component was performed [facility], Department at (test code = 2778) of Pathology, [address] [place] [address], Professional component was [facility], Depart ment performed at (test code = 2779) of Pathology, [address] [place] [address], [facility] [id number] 19:53:03Surgical Pathology Report Case: [id number] Authorizing Provider: Rita Hubbard MD Collected: 02/26/2023 05:16 PM Ordering Location: [facility] PERIOPER[facility] Received: 02/27/2023 08:45 AM SERVICES Pathologist: Oralia Coffman MD Specimens: A) - Lymph Node, ANTERIOR CARMELITA-PROSTATIC LYMPH NODE B) - Bladder, BLADDER NECK MARGIN C) - Soft Tissue, Other, APICAL ANTERIOR MARGIN D) - Bladder, ANTERIOR BLADDER NECK MARGIN E) - Lymph Node, RIGHT PELVIC LYMPH NODES F) - Lymph Node, LEFT PELVIC LYMPH NODES G) - Prostate, PROSTATE AND SEMINAL VESICLES A. LYMPH NODE, ANTERIOR PERIPROSTATIC, EXCISION - BENIGN FIBROADIPOSE TISSUE - NO LYMPHOID TISSUE IDENTIFIEDB. URINARY BLADDER NECK MARGIN, EXCISION -NEGATIVE FORMALIGNANCY C. PROSTATE, ANTERIOR APICAL MARGIN, EXCISION -NEGATIVE FOR MALIGNANCYD. URINARY BLADDER NECK, ANTERIOR MARGIN, EXCISION -NEGATIVE FOR MALIGNANCYE. LYMPH NODE, RIGHT PELVIC, EXCISION -THREE BENIGN LYMPH NODES (0/3)F. LYMPH NODE, LEFT PELVIC, EXCISION -TWO BENIGN LYMPH NODES (/0/2) G. PROSTATE, ROBOTIC ASSISTED LAPAROSCOPIC RADICAL PROSTATECTOMY:-ADENOCARCINOMA, ALEXANDER SCORE 3+4=7 (GRADE GROUP 2), ORGAN CONFINED -SURGICAL MARGINS NEGATIVE FOR TUMOR -SEE COMMENT SEMINAL VESICLES, ROBOTIC ASSISTED LAPAROSCOPIC RADICAL PROSTATECTOMY:- NO PATHOLOGIC DIAGNOSIS Signing Pathologist Direct PhoneLine: [phone] signed by Oralia Coffman MD on 03/23/2023 at 7:52 PMSections of the prostate have adenocarcinoma from apex to base and involving bilateral peripheral zones. The dominant nodule is located in the right posterolateral peripheral zone, measures up to 24 mm and has an overall Alexander score of Belknap score 3+4 = 7. Approximately 10-15% of the tumor is comprised of Belknap pattern 4. The tumor is confined to the prostate, no extraprostatic extension is identified. Perineural invasion is identified, but no lymphovascular invasion is identified. The surgical margins, urinarybladder neck and seminal vesicles are uninvolved by tumor.PROSTATE GLAND: Radical ProstatectomyPROSTATE GLAND: RADICAL PROSTATECTOMY - All Tvoyhcrdd5je Edition - Protocol posted: 08/24/2021PECIMEN Procedure: Radical prostatectomy Prostate Size: Prostate Weight (Grams): 29.5 g Prostate Greatest Dimension (Centimeters): 4 cm Additional Prostate Dimension (Centimeters): 3.5 cm Additional Prostate Dimension (Centimeters): 3 cmTUMOR Histologic Type: Acinar adenocarcinoma Histologic Grade: Grade: Grade group 2 (Belknap Score 3 + 4 = 7) Minor Tertiary Pattern 5 (less than 5%): Not applicable Percentage of Pattern 4: 11 - 20% Intraductal Carcinoma (IDC): Not identified Cribriform Glands: Not identified Tr eatment Effect: No known presurgical therapy TUMOR QUANTITATION: Estimated Percentage of Prostate Involved by Tumor: 11 - 20% Greatest Dimension of Dominant Nodule (Millimeters): 24 mm Location of Dominant Nodule: Right posterolateral peripheral zone Extraprostatic Extension (EPE): Not identified Urinary Bladder Neck Invasion: Not identified Seminal Vesicle Invasion: Not identified Lymphovascular Invasion: Not Identified Perineural Invasion: Present MARGINS Margin Status: All margins negative for invasive carcinoma REGIONAL LYMPH NODES Regional Lymph Node Status: : All regional lymph nodes negativefor tumor Number of Lymph Nodes Examined: 5 PATHOLOGIC STAGE CLASSIFICATION (pTNM, AJCC 8th Edition)Reporting of pT, pN, and (when applicable) pM categories is based on information available to the pathologist at the time the report is issued. As per the AJCC (Chapter 1, 8th Ed.) it is the managing physician's responsibility to establish the final pathologic stage based upon all pertinent information, including but potentially not limited to this pathology report. 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 Lymph NodeReceived in formalin labeled with the patient's name, accession number and "anterior periprosthetic lymph node" is a 3.2 x 2.9 x 0.3 cm portion of gonzalez-yellow, fibrofatty adipose tissue, which is entirely submitted in A1-A3.B. BladderReceived in formalin labeled with the patient's name, accessionnumber and "bladder neck margin" is a 0.7 x 0.4 x 0.2 cm gonzalez, cauterized soft tissue which is submitted in toto in B1.C. Soft Tissue, OtherReceived in formalin labeled with the patient's name, accession number and "apical anterior margin" is a 1.2 x 1.0 x 0.4 cm gonzalez, cauterized soft tissue, which is inked blue, trisected and entirely submitted in C1.D. BladderReceived in formalin labeled with the patient's name, accession number and "anterior bladder neck margin" are 2 gonzalez, cauterized soft tissue fragments ranging from 0.4-0.5 cm in greatest dimension which are submitted in toto in D1.E. Lymph NodeReceived in formalin labeled the patient's name, accession number and "right pelvic lymph nodes" is a6.5 x 4.0 x 0.7 cm aggregate of gonzalez-yellow, fibrofatty adipose tissue. Sectioning reveals 3 possibletan lymph nodes ranging from 1.2- 4.2 cm in greatest dimension. The specimen is entirely submitted as follows:Section codeE1: 1 possible lymph node, bisectedE2: 1 possible lymph node, trisectedE3-E5: 1 lymph node, quadrisectedE6-E10: Remainder of soft tissueF. Lymph NodeReceived in formalin labeled with the patient's name, session number and "left pelvic lymph nodes" is a 5.0 x 3.0 x 0.5 cm aggregate of gonzalez- yellow, fibrofatty adipose tissue. Sectioning reveals a 3.3 x 1.0 x 0.4 cm gonzalez lymph node. Thespecimen is entirely submitted as follows:Section codeF1-F2: 1 lymph node, quadrisectedF3-F5: Remainder of soft tissueG. ProstateReceived fresh labeled with the patient's name, medical record number and "prostate" is a 29.5 g radical prostatectomy measuring 3.0 cm apex to base, 4.0 cm transversely, and 3.5 cm anterior to posterior. The right and left seminal vesicles measure 4.1 x 1.5 x 1.5 cm and 4.0 x 2.0 x 1.0 cm, respectively. The right and left vas deferens measure 5.0 cm and 3.0 cm in length respectively, each 0.5 cm in diameter.The outer surface of the prostate is purple-gonzalez to red, dusky and focally ragged. The prostate is serially sectioned from apex to base in its entirety. The total number of slices is 4. Sections reveal a pink-gonzalez to brown- white, homogenous, focally nodular prostatic parenchyma throughout. No discrete masses are identified. Sectioning of the seminal vesicles reveal a pink-gonzalez, unremarkable cut surface. The prostate and seminal vesicles are entirely submitted.Ink code:Blue: LeftBlack: RightSection code:G1-G6: Right seminal vesicleG7-G12: Left seminal htgkujbE44: Right and left vas deferens margin, en uzpsY69-Z58: Right apex margin, perpendicular fyjdzglcV11-N68: Left apex margin, perpendicular ryfozfwpP08-M17: Right bladder base margin, perpendicular sectionsG 23-G25: Left bladder base margin, perpendicular uezpwyejV39: Prostate, slice 1G27: Prostate, slice 2G28: Prostate, slice 3G29: Prostate, slice 4JCA-G. Performed.Z0DXFIR - NEGATIVECK5/6 - NEGATIVEThe interpretation of this case included the use of immunohistochemistry or special stains.Control Slides Examined: In-house known positive controls were evaluated along with the test tissue. These control slides run alongside of the patients sample show appropriate staining. Internal positive and negative controls when available are evaluated Immunohistochemistry technical testing was performed at [facility], Pathology Laboratory where it was developed and its performance characteristics were determined. It has not been cleared or approved by the U.S. Food and Drug Administration. The FDA has determined that such clearance or approval is not necessary. The test is used for clinical purposes. It should not be regarded as investigational or for research. This laboratory is certified under the Clinical Laboratory Improvement Amendments of 1988 (CLIA-88) as qualified to perform high complexity clinical laboratory testing.[facility], Department of Pathology, [address] [place] [address], [facility] [facility], Department of Pathol ogy, [address] [place] [address], [facility] [place] [facility], Department of Pathology, [address] [place] [address], [facility] [id number] 06:08:08 Test Item Value Reference Range Interpretation Comments SODIUM (BEAKER) 138 meq/L 136-145 (test code = 381) POTASSIUM 4.0 meq/L 3.5-5.1 (BEAKER) (test code = 379) CHLORIDE (BEAKER) 108 meq/L 98-107 H (test code = 382) CO2 (BEAKER) 22 meq/L 22-29 (test code = 355) BLOOD UREA 9 mg/dL 7-21 NITROGEN (BEAKER) (test code = 354) CREATININE 1.03 mg/dL 0.57-1.25 (BEAKER) (test code = 358) GLUCOSE RANDOM 108 mg/dL 70-105 H (BEAKER) (test code = 652) CALCIUM (BEAKER) 8.6 mg/dL 8.4-10.2 (test code = 697) EGFR (BEAKER) 88 Interpretatio n of eGFR (test code = mL/min/1.73 values Stage De scription 1092) sq m Result G1 Melissa l or high >=90 G2 Mildly decreased 60-89 G3a Mildl y to moderately 45-5 9 G3b Moderately to s everely 30-44 G4 Severl y decreased 15-29 G5 Kidney failure <15Reported eGF R is based on the CKD-EPI 2020 equation that d oes not use a race coefficientEsti mated GFR is not as accur ate as Creatinine Shea corona in predicting glom erular filtration rate . Estimated GFR is not appl icable for dialysis patien ts Sales Representative Publications ID - GE [id number] (HEMOGRAM ONLY)2023-02-27 05:14:10 Test Item Value Reference Range Interpretation Comments WHITE BLOOD CELL COUNT (BEAKER) 16.9 K/ L 3.5-10.5 H (test code = 775) RED BLOOD CELL COUNT (BEAKER) 4.41 M/ L 4.63-6.08 L (test code = 761) HEMOGLOBIN (BEAKER) (test code = 13.9 GM/DL 13.7-17.5 410) HEMATOCRIT (BEAKER) (test code = 40.4 % 40.1-51.0 411) MEAN CORPUSCULAR VOLUME (BEAKER) 92 fL 79-92 (test code = 753) MEAN CORPUSCULAR HEMOGLOBIN 31.5 pg 25.7-32.2 (BEAKER) (test code = 751) MEAN CORPUSCULAR HEMOGLOBIN CONC 34.4 GM/DL 32.3-36.5 (BEAKER) (test code = 752) RED CELL DISTRIBUTION WIDTH 13.5 % 11.6-14.4 (BEAKER) (test code = 412) PLATELET COUNT (BEAKER) (test 264 K/CU MM 150-450 code = 756) MEAN PLATELET VOLUME (BEAKER) 9.2 fL 9.4-12.4 L (test code = 754) NUCLEATED RED BLOOD CELLS 0 /100 WBC 0-0 (BEAKER) (test code = 413) BASIC METABOLIC [id number] 21:50:39 Test Item Value Reference Range Interpretation Comments SODIUM (BEAKER) 139 meq/L 136-145 (test code = 381) POTASSIUM 4.1 meq/L 3.5-5.1 (BEAKER) (test code = 379) CHLORIDE (BEAKER) 109 meq/L 98-107 H (test code = 382) CO2 (BEAKER) 18 meq/L 22-29 L (test code = 355) BLOOD UREA 9 mg/dL 7-21 NITROGEN (BEAKER) (test code = 354) CREATININE 1.23 mg/dL 0.57-1.25 (BEAKER) (test code = 358) GLUCOSE RANDOM 139 mg/dL 70-105 H (BEAKER) (test code = 652) CALCIUM (BEAKER) 8.4 mg/dL 8.4-10.2 (test code = 697) EGFR (BEAKER) 71 Interpretatio n of eGFR (test code = mL/min/1.73 values Stage De scription 1092) sq m Result G1 Melissa l or high >=90 G2 Mildly decreased 60-89 G3a Mildl y to moderately 45-5 9 G3b Moderately to s everely 30-44 G4 Severl y decreased 15-29 G5 Kidney failure <15Reported eGF R is based on the CKD-EPI 2020 equation that d oes not use a race coefficientEsti mated GFR is not as accur ate as Creatinine Shea corona in predicting glom erular filtration rate . Estimated GFR is not appl icable for dialysis patien ts Sales Representative Publications ID - BSSpecimen slightly ictericCBC (HEMOGRAM ONLY)2023-02-26 21:39:09 Test Item Value Reference Range Interpretation Comments WHITE BLOOD CELL COUNT (BEAKER) 20.6 K/ L 3.5-10.5 H (test code = 775) RED BLOOD CELL COUNT (BEAKER) 4.63 M/ L 4.63-6.08 (test code = 761) HEMOGLOBIN (BEAKER) (test code = 14.5 GM/DL 13.7-17.5 410) HEMATOCRIT (BEAKER) (test code = 41.6 % 40.1-51.0 411) MEAN CORPUSCULAR VOLUME (BEAKER) 90 fL 79-92 (test code = 753) MEAN CORPUSCULAR HEMOGLOBIN 31.3 pg 25.7-32.2 (BEAKER) (test code = 751) MEAN CORPUSCULAR HEMOGLOBIN CONC 34.9 GM/DL 32.3-36.5 (BEAKER) (test code = 752) RED CELL DISTRIBUTION WIDTH 13.5 % 11.6-14.4 (BEAKER) (test code = 412) PLATELET COUNT (BEAKER) (test 295 K/CU MM 150-450 code = 756) MEAN PLATELET VOLUME (BEAKER) 8.9 fL 9.4-12.4 L (test code = 754) NUCLEATED RED BLOOD CELLS 0 /100 WBC 0-0 (BEAKER) (test code = 413) Blood gas, [id number] 16:58:47 Test Item Value Reference Range Interpretation Comments pH, Arterial (test code 7.40 7.35-7.45 = 2744-1) pCO2, Arterial (test 37 See_Comment [Autom ated code = 2019-05) message] The system which generated this result transmitted reference range : 35 - 45 mm Hg. The reference range was not used to interpret this result as normal/abnormal . pO2, Arterial (test 184 See_Comment H [Automa pilar code = 2703-7) message] The system which generated this result transmitted reference range : 80 - 90 mm Hg. The reference range was not used to interpret this result as normal/abnormal . O2 Sat, Arterial (test 99.3 % 96.0-97.0 H code = 2708-6) HCO3, Arterial (test 22 mmol/L 21-29 code = 1960-4) Base Excess, Arterial -2.1 mmol/L -2.0-3.0 L (test code = 1925-7) Patient Temperature 37.0 (test code = 8310-5) FIO2 (test code = 1819) 21.0 Lab Interpretation Abnormal (test code = 57173-8) [facility], [id number] 16:58:47 Test Item Value Reference Range Interpretation Comments PH ARTERIAL (BEAKER) (test code = 7.40 7.35-7.45 383) PCO2 ARTERIAL (BEAKER) (test code 37 mm Hg 35-45 = 384) PO2 ARTERIAL (BEAKER) (test code 184 mm Hg 80-90 H = 385) O2 SATURATION ARTERIAL (BEAKER) 99.3 % 96.0-97.0 H (test code = 386) HCO3 ARTERIAL (BEAKER) (test code 22 mmol/L 21-29 = 388) BASE EXCESS ARTERIAL (BEAKER) -2.1 mmol/L -2.0-3.0 L (test code = 387) PATIENT TEMPERATURE (BEAKER) 37.0 (test code = 1818) FIO2 (BEAKER) (test code = 1819) 21.0 CALCIUM, [id number] 16:58:46 Test Item Value Reference Range Interpretation Comments CALCIUM IONIZED (BEAKER) (test 1.06 mmol/L 1.12-1.27 L code = 698) PH, BLOOD (BEAKER) (test code = 7.40 1810) HGB/HCT (H&H)-Stat [id number] 16:58:27 Test Item Value Reference Range Interpretation Comments Hemoglobin (test code = 14.8 See_Comment [Au tomated message] 738-7) The system [employer] generated this result transmitted ref erence range: 13.0 - 1 6.8 GM/DL. The refe rence range was not u sed to interpret this result as normal/abnor mal. Hematocrit (test code = 44.0 % 40.0-50.0 4544-3) Lab Interpretation (test Normal code = 83403-4) [facility] - STAT [id number] 16:58:27 Test Item Value Reference Range Interpretation Comments HEMOGLOBIN (BEAKER) (test code = 14.8 GM/DL 13.0-16.8 410) HEMATOCRIT (BEAKER) (test code = 44.0 % 40.0-50.0 411) Glucose-Stat [id number] 16:58:22 Test Item Value Reference Range Interpretation Comments Glucose (test code = 2345-7) 102 mg/dL 70-110 Lab Interpretation (test code = Normal 09068-1) [facility] [id number] 16:58:22 Test Item Value Reference Range Interpretation Comments Sodium (test code = 2951-2) 138 meq/L 136-145 Lab Interpretation (test code = Normal 78224-7) [facility]assium-Stat [id number] 16:58:22 Test Item Value Reference Range Interpretation Comments Potassium (test code = 2823-3) 3.5 meq/L 3.6-5.5 L Lab Interpretation (test code = Abnormal 28653-4) [facility]GLUCOSE-STAT [id number] 16:58:22 Test Item Value Reference Range Interpretation Comments GLUCOSE RANDOM (BEAKER) (test code 102 mg/dL 70-110 = 652) SODIUM NA-STAT [id number] 16:58:22 Test Item Value Reference Range Interpretation Comments SODIUM (BEAKER) (test code = 381) 138 meq/L 136-145 POTASSIUM-STAT [id number] 16:58:22 Test Item Value Reference Range Interpretation Comments POTASSIUM (BEAKER) (test code = 3.5 meq/L 3.6-5.5 L 379) Notes Date/Time Note Provider Source 2023-02-27 02:37:29-00:00 RITA HUBBARD [facility] OPERATIVE/PROCEDURE REPORT TESS WHITTAKER FACILITY: [facility] Billing #: [id number] Room: [address] [place] [address] MR #: [id number] : 1970 DATE OF PROCEDURE: 02/26/2023 SURGEON: Rita Hubbard MD PREOPERATIVE DIAGNOSIS: Grade group 2 favorable intermediate risk adenocarcinoma of the prostate. POSTOPERATIVE DIAGNOSIS: Grade group 2 favorable intermediate risk adenocarcinoma of the prostate. PRINCIPAL PROCEDURES: 1. Robot-assisted laparoscopic radical prostatec hayden. 2. Bilateral pelvic lymphadenectomy. INDICATIONS FOR PROCEDURE: Mr. Whittaker presented to the [facility]rology [facility] with an elevated PSA of 5 and und erwent a biopsy of the prostate revealing multiple cores, 5 in n umber, of [place] 4 + 5 adenocarcinoma of the prostate. Si nce the disease was found bilaterally at the right and l eft apices as well as the mid gland regions of the prostate an d he was clinical stage T2a at the right base, he was cou nselled, given his youth, about the potential for active survei llance, but the risks associated with a large volume of favorabl e intermediate risk disease. As a result, after consideration dorota e elected to proceed with treatment of his prostate cancer an elaine agreed to the surgical approach. DESCRIPTION OF PROCEDURE: The patient was consen pilar in the preoperative holding area before being transferr ed to the operative suite, where general anesthesia was in duced. An OG tube was placed for gastric decompression. Pneum oboots were provided for DVT prophylaxis. Ancef was given fo r antimicrobial prophylaxis. He was placed supine on the operative table and his abdomen was shaved, prep ped with ChloraPrep after he had been secured to the tabl e appropriately, and then he was draped in standar d fashion. An 18-Eritrean urethral Sanchez catheter was placed int o his bladder with ease and his bladder was decompressed of ur ine. The case was begun identifying a midline incision supraum bilical for the Sukumar approach to placing a balloon trocar. Onc e the trocar was successfully placed after the fascia was ent ered and the peritoneum entered manually, we then surveyed th e internal components of the abdomen after insufflating his abdomen to 15 mmHg pressure using carbon dioxide. There were n o significant intraabdominal adhesions and so the robotic troc ars were placed using a standard 4-arm approach 15 cm from the p ubic symphysis with a 12 mm branch assistant port in the left lower qu adrant and a 5 mm branch assistant port in the left upper quadrant. Th e case was begun by identifying the peritoneal reflection a t the inferior vesical gutter where interestingly there were no pilar to be several bayron leftover from his prior abdomina l surgery, which I believe was an appendectomy. The periton eum was then divided over the putative region of the seminal vesicles and the very enlarged and dilated seminal vesicles w ere immediately encountered. I dissected the vasa and the semina l vesicles until the tips of the seminal vesicles and their vascular pedicles were identified. Metal clips were appli ed to ligate those pedicles and the seminal vesicles were fish ed. This was done bilaterally, and the vasa were divided bila terally. I then used the 4th arm to elevate the seminal ves icles and the vasa in the midline beneath the bladder and then further divided the peritoneal reflection to enter the D enonvilliers space. Leaving all layers of Denonvilliers fasci a on the posterior surface of the prostate, the rectum wa s released off the posterior surface of the prostate as far as we could get it to the apex. Surgicel was then placed into the f krysta to wanda the site and the seminal vesicles were released. We then turned our attention to the bladder neck and the medial umbilical ligaments were divided bilaterally aft er dividing the peritoneum lateral to them. We then divided acro ss the median umbilical ligament and released the bladder. We continued the dissection releasing the bladder off the anterio r abdominal wall until the pubic symphysis was identified an d the space of Retzius was entered. Once the bladder was comple tely released, all fat and fascia were removed off the anterior surface of the prostate and sent for pathologic analysis as ant erior periprostatic fat lymph nodes. We then identifie d the neurovascular bundles and performed grade 4/5 hi gh anterior release bilaterally taking this to the apex. Onc e the puboprostatic ligaments were divided and a very broad dorsal venous complex was identified, I utilized a 0 Vi cryl on a CT1 needle to ligate the dorsal venous complex super ficially. We then turned our attention to the bladder neck wh ich was divided anteriorly and taken down until the catheter was visualized. Once we were through the what we thought was the bladder neck we identified the Surgicel that had previously b een placed, but we were unable to identify the seminal vesicles and vasa. Since they were still attached posteriorly, the thought was perhaps we came through the posterior zone of th e prostate inappropriately; however, we never encountered a ny prostate tissue. As a result, I reassessed the area and d issected the prostate directly off the bladder neck by using a fourth arm to pull the prostate distally and identifying the b ladder neck fibers versus the prostate and sharply dividing them using scissors and electrocautery. I was able to ident naa a normal posterior zone of the prostate and released this off the bladder neck successfully after sometime was spe nt performing the dissection. I then identified the vascular p edicles which were ligated using Weck clips bilaterally and th e neurovascular bundles were successfully release off the communications scientist olateral surface of the prostate and a grade 4/5 dissecti on on the left and a grade 3/5 dissection on the right. This wa s taken successfully to the apex of the prostate and the prostate was quickly freed. I surveyed the prostate and despi te our confusion with the bladder neck dissection, the prostate was in fact intact without any capsular incisions obser jonathan at the apex of the prostate and the bladder neck region of t he prostate similarly was adequately intact. As a result, th e prostate and seminal vesicles were delivered into an EndoCatc h bag which was elevated into the upper abdomen, and then I turn ed my attention to the reconstruction. I first performed a Simon stitch by identifying the cut edge of the Denonvilliers an d suturing it to the posterior rhabdosphincter that had been c ut releasing the apical portion of the prostate. Once this owens ccessfully delivered the bladder down the urethra, a runnin g urethrovesical anastomosis was then performed us ing interlocking V-Loc sutures. Once this was succes sfully performed and no leaks were identified, I then t urned my attention to the right pelvic lymph nodes and id entified the external iliac veins and divided the fat and fas rhiannon overlying it taking it down beneath the vein to the pelvic sidewall and then all the way down beneath the pubis and visu alizing the obturator nerve and vessels. All the miguel tissu e was then from the obturator vessels and we used a Weck clip to ligate the miguel packet at the level of the node of Luz. This was then divided using electrocautery and r eleased and then the proximal component was similarly releas ed using electrocautery where necessary. We then turned o ur attention to the left pelvic sidewall and similarly identi fied the external iliac vein on the left, dividing the fa t and fascia overlying it and taking it down to the pelvic si dewall, identifying the obturator nerves and vessels on that side and releasing all of the miguel tissue from beneath t he obturator nerve and taking it to the level of the node of the [place]. This side was bipolar fulgurated extensively and then divided and released to free up the miguel packet. The pr oximal component of the miguel packet was similarly rele ased using electrocautery and we ensured that all miguel tis giovani was removed from around the obturator vessels and beneath th em to the junction of the endopelvic fascia. Once the lymp h nodes have been removed bilaterally, they were sent as left and right pelvic lymph nodes for pathologic analysis christiano dove. Of note, prior to performing the urethrovesical anastomos is, I did excise an additional piece of anterior apical ti ssue to ensure the anterior zone of the prostate where the diss ection was confusion was indeed adequately resected for onc ologic margins. This was sent as anterior urethral margin beyon d the apex of the prostate that was released. I similarly took an additional margin posteriorly at the bladder and then one a nteriorly at the bladder neck to ensure the prostate anterior ly had been adequately resected for good oncologic margins. We irrigated the bladder with at least 100 mL of saline to en sure there was no leak, and once confirmed, we removed all robo tic instruments under direct vision after we placed a 19-Eritrean Gato drain. Favian-Caitlyn closure using 0 Vicryl was perfo rmed of the 12 mm trocar site, and all of the trocars were sharon jonathan under direct vision. We then extended the camera port incision slightly in order to remove the prostate and valeriy inal vesicles within the EndoCatch bag. Once this was performe d, we then utilized Grant clamps and 0 PDS suture in an in terrupted [id number] fashion to close the extraction site. Once adequately closed, we then copiously irrigated e ach of the incision sites before closing the skin with 4-0 Monocryl and sealing it with Dermabond. Fluorescein was then given 2 mL of 1 mg/mL solution to ensure continuity of this lowe r urinary tract given the confusion associated with the bladder neck dissection, and we did indeed see Fluorescein em anating catheter associated with reasonable urine produc tion. As a result, the patient was awakened from general an esthesia, transferred to a stretcher and then transferred to the recovery room in good condition. COMPLICATIONS: None. DISCHARGE DISPOSITION: He will be standard robot assisted laparoscopic radical prostatectomy pathway with anticipated discharge perhaps tomorrow evening or Sunday. WR/MODL /[id number] .000
[2023-05-18 13:34] LABS: Specific Gravity > 1.030 (1.005-1.030); Urine Bacteria <20 /HPF (<20); Urine Bilirubin NEGATIVE (Negative); Urine Blood 1+ (Negative); Urine Clarity Clear (Clear); Urine Color Yellow (Yellow); Urine Crystals Unidentified Few /HPF (None Seen); Urine Glucose NEGATIVE (Negative); Urine Mucus Slight /HPF (None Seen); Urine Protein 1+ (Negative); Urine RBC 21-50 /HPF (None Seen); Urine Urobilinogen 1+ (Normal); Urine pH 5.5 (5.0-7.0)
--- NOTE | 2023-05-18 15:11 | RAD REPORT ---
EXAM DESCRIPTION: CT - Stone Protocol - 05/18/2023 2:57 pm CLINICAL HISTORY: Abdominal pain. COMPARISON: October 2022 TECHNIQUE: Computed axial tomography of the abdomen pelvis was obtained without oral or IV contrast. Lack of IV and oral contrast limits evaluation of solid organs, appendix, bowel, and vessels. Landeros l reformatted images were obtained and reviewed. All CT scans are performed using dose optimization technique as appropriate and may include automated exposure control or mA/KV adjustment according to patient size. FINDINGS: A renal calculus is not seen. An ureteral calculus is not noted. A bladder calculus is not present. No hydronephrosis 2 centimeter peripherally calcified splenic lesion unchanged is benign The liver,, pancreas and adrenals appear grossly normal There is no evidence of diverticulitis. Prostatectomy. No lymphadenopathy. No ascites IMPRESSION: Negative for a genitourinary calculus
--- NOTE | 2023-05-18 15:15 | EDPHYS ---
Physician Documentation [facility] Name: Johnny Priest III Age: 52 yrs Sex: Male : 1970 Arrival Date: 05/18/2023 Time: 12:42 Bed 10 Private MD: ED Physician Fredo Richardson HPI: 05/18 15:20 This 52 yrs old Male presents to ER via Ambulatory with complaints of Urinary Problem. kb 15:16 Pt reports bladder pains intermittently for the last 2 weeks. Today at noon he noticed kb pink tinge to his urine. Denies flank pain, fever, nausea vomiting or diarrhea. Denies dysuria, frequency. 15:20 The patient presents with urinary symptoms, hematuria. Onset: The symptoms/episode kb began/occurred 2 week(s) ago, and became worse today. Modifying factors: The symptoms are alleviated by nothing, the symptoms are aggravated by urinating. Associated signs and symptoms: Pertinent positives: hematuria, Pertinent negatives: abdominal pain, constipation, diarrhea, dysuria, fever, nausea, vomiting. Severity of symptoms: At their worst the symptoms were mild, in the emergency department the symptoms are unchanged. The patient has not experienced similar symptoms in the past. The patient has not recently seen a physician. Historical: - Allergies: 13:14 NKA; mb9 - Home Meds: 13:14 Wellbutrin 150 mg Oral 200 mg daily [Active]; mb9 - PMHx: 13:14 ADD/ADHD; MANIC DEPRESSION; mb9 - PSHx: 13:14 prostate removal; mb9 - Immunization history:: Adult Immunizations up to date. - Social history:: Smoking status: Patient reports the use of cigarette tobacco products, smokes one-half pack cigarettes per day. ROS: 15:20 Constitutional: Negative for fever, chills, and weight loss. kb 15:20 : Positive for hematuria, bladder pain. 15:20 All other systems are negative. Exam: 15:20 Constitutional: This is a well developed, well nourished patient who is awake, alert, kb and in no acute distress. Head/Face: Normocephalic, atraumatic. ENT: Moist Mucous membranes Cardiovascular: Regular rate and rhythm with a normal S1 and S2. No gallops, murmurs, or rubs. No pulse deficits. Respiratory: Respirations even and unlabored. No increased work of breathing. Talking in full sentences Abdomen/GI: Soft, non-tender. No distention Back: No spinal tenderness. No costovertebral tenderness. Full range of motion. Skin: Warm, dry with normal turgor. Normal color. MS/ Extremity: Pulses equal, no cyanosis. Neurovascular intact. Full, normal range of motion. Neuro: Awake and alert, GCS 15, oriented to person, place, time, and situation. Moves all extremities. Normal gait. Vital Signs: 13:12 BP 125 / 73; Pulse 79; Resp 18; Temp 99; Pulse Ox 100% on R/A; Weight 86.18 kg; Height mb9 5 ft. 10 in. ; Pain 2/10; 13:12 Body Mass Index 27.26 (86.18 kg, 177.8 cm) mb9 13:12 Pain Scale: Adult mb9 MDM: 12:55 Patient medically screened. kb 15:20 Differential diagnosis: UTI, kidney stone, carcinoma. Data reviewed: vital signs, kb nurses notes. Counseling: I had a detailed discussion with the patient and/or guardian regarding: the historical points, exam findings, and any diagnostic results supporting the discharge/admit diagnosis, lab results, radiology results, the need for outpatient follow up, a urologist, to return to the emergency department if symptoms worsen or persist or if there are any questions or concerns that arise at home. 05/18 13:09 Order name: Urinalysis w/ reflexes; Complete Time: 14:37 kb 05/18 13:40 Order name: Urine Culture EDNC 05/18 14:37 Order name: CT Stone Protocol; Complete Time: 15:12 kb Administered Medications: No medications were administered Disposition: 17:22 Co-signature as Attending Physician, Fredo Richardson MD I agree with the assessment and kdr plan of care. Disposition Summary: 05/18/23 15:15 Discharge Ordered Location: Home kb Condition: Stable kb Diagnosis - Hematuria, unspecified kb Followup: kb - With: Emergency Department - When: As needed - Reason: Worsening of condition Followup: kb - With: Private Physician - When: 2 - 3 days - Reason: Recheck today's complaints, Continuance of care, Re-evaluation by your physician Discharge Instructions: - Discharge Summary Sheet kb - Hematuria, Adult kb - Urinary Tract Infection, Adult, [id number] kb Forms: - Work release form kb - Medication Reconciliation Form kb - Thank You Letter kb - Antibiotic Education kb - Prescription Opioid Use kb - Patient Portal Instructions kb Prescriptions: - Augmentin 875-125 mg Oral Tablet - take 1 tablet by ORAL route every 12 hours for 10 days; 20 tablet; Refills: 0, kb Product Selection Permitted Signatures: Dispatcher [employer] EDNC Marla Philippe, Fredo Martinez MD MD kdr Breneman, Mary Beth RN RN mb9 Corrections: (The following items were deleted from the chart) 13:15 13:14 PSHx: prostate biopsy; lan9 mb9
--- NOTE | 2023-05-18 15:15 | ER ---
Nurse's Notes [facility] Name: Johnny Priest III Age: 52 yrs Sex: Male : 1970 Arrival Date: 05/18/2023 Time: 12:42 Bed 10 Private MD: Diagnosis: Hematuria, unspecified Presentation: 05/18 13:12 Chief complaint: Patient states: "I've been having bladder pains for 2 weeks now. When mb9 I urinated today, it was pink tinged. I had prostate removed this February and this hasn't happened since the surgery." Pt denies urinary frequency, urgency, and burning with urination. Coronavirus screen: Vaccine status: Patient reports receiving the 2nd dose of the covid vaccine. Ebola Screen: No symptoms or risks identified at this time. Initial Sepsis Screen: Does the patient meet any 2 criteria? No. Patient's initial sepsis screen is negative. Does the patient have a suspected source of infection? No. Patient's initial sepsis screen is negative. Risk Assessment: Do you want to hurt yourself or someone else? Patient reports no desire to harm self or others. Onset of symptoms was May 18, 2023. 13:12 Method Of Arrival: Ambulatory mb9 13:12 Acuity: KENYATTA 4 mb9 Triage Assessment: 13:15 General: Appears in no apparent distress. Behavior is calm, cooperative. Pain: Denies mb9 pain. Neuro: Andrews Agitation-Sedation Scale (RASS): 0 - Alert and Calm Level of Consciousness is awake, alert, obeys commands, Oriented to person, place, time, situation, Appropriate for age. Cardiovascular: Patient's skin is warm and dry. Respiratory: Airway is patent Respiratory effort is even, unlabored, Respiratory pattern is regular, symmetrical. GI: No signs and/or symptoms were reported involving the gastrointestinal system. : Reports discomfort. Blood tingled urine. Derm: Skin is pink, warm \\T\\ dry. Musculoskeletal: Range of motion: intact in all extremities. Historical: - Allergies: 13:14 NKA; mb9 - Home Meds: 13:14 Wellbutrin 150 mg Oral 200 mg daily [Active]; mb9 - PMHx: 13:14 ADD/ADHD; MANIC DEPRESSION; mb9 - PSHx: 13:14 prostate removal; mb9 - Immunization history:: Adult Immunizations up to date. - Social history:: Smoking status: Patient reports the use of cigarette tobacco products, smokes one-half pack cigarettes per day. Screenin:16 [facility] ED Fall Risk Assessment (Adult) History of falling in the last 3 months, mb9 including since admission No falls in past 3 months (0 pts) Confusion or Disorientation No (0 pts) Intoxicated or Sedated No (0 pts) Impaired Gait No (0 pts) Mobility Assist Device Used No (0 pt) Altered Elimination No (0 pt) Score/Fall Risk Level 0 - 2 = Low Risk Oriented to surroundings, Maintained a safe environment, Educated pt \\T\\ family on fall prevention, incl call for assistance when getting out of bed. Abuse screen: Denies threats or abuse. Nutritional screening: No deficits noted. Tuberculosis screening: No symptoms or risk factors identified. Assessment: 13:16 Reassessment: see triage assessment. mb9 Vital Signs: 13:12 BP 125 / 73; Pulse 79; Resp 18; Temp 99; Pulse Ox 100% on R/A; Weight 86.18 kg; Height mb9 5 ft. 10 in. ; Pain 2/10; 13:12 Body Mass Index 27.26 (86.18 kg, 177.8 cm) mb9 13:12 Pain Scale: Adult mb9 ED Course: 12:45 Patient arrived in ED. mg5 12:55 Marla Philippe FNP-C is [facility]. kb 12:55 Fredo Richardson MD is Attending Physician. kb 13:14 Triage completed. mb9 13:15 Arm band placed on. mb9 13:16 Mallory Garcia RN is Primary Nurse. mb9 13:17 No provider procedures requiring assistance completed. mb9 13:22 Urinalysis w/ reflexes Sent. mb9 14:59 CT Stone Protocol In Process Unspecified. EDMS 16:07 Patient did not have IV access during this emergency room visit. ss Administered Medications: No medications were administered Medication: 13:16 VIS not applicable for this client. mb9 Outcome: 15:15 Discharge ordered by . kb 16:07 Discharged to home ambulatory. ss 16:07 Condition: good 16:07 Discharge instructions given to patient, family, Instructed on discharge instructions, follow up and referral plans. medication usage, Demonstrated understanding of instructions, follow-up care, medications, Prescriptions given X 1. 16:12 Patient left the ED. Signatures: Dispatcher [employer] EDPR Marla Philippe, REGINALDO BLAND-Shari Mayen RN RN Mallory Strickland RN RN mb9 Torie Hart mg5 Corrections: (The following items were deleted from the chart) 13:15 13:14 PSHx: prostate biopsy; nathalia sloan
[2023-05-18 16:44] VITALS: BP 125/73; TEMP 99; O2SAT 100
== END 2023-05-18 16:12 | disposition home or self-care (01) ==
LOC: ER 12:42
DX: R31.9 Hematuria, unspecified (principal); F17.210 Nicotine dependence, cigarettes, uncomplicated
CPT/HCPCS: 74176; 76377; 81001; 87086; 87088; 99283

== ENCOUNTER 2023-09-05 08:38 | Emergency (ER) | payer OTHER ==
--- OUTSIDE RECORDS SUMMARY | 2023-09-05 08:44 | XMS REPORT | Continuity of Care Document ---
:1970 Author Organization [facility] t Address [address] [place] [address]. [address] [place] [address] Care Team Providers Name Role Phone Malina Cruz NP Primary Care Physician Malina Cruz Attending Clinician Unavailable Navdeep Rodriguez Attending Clinician Unavailable Haley Carbera Attending Clinician Unavailable Rita Hubbard MD Attending Clinician RITA HUBBARD Attending Clinician Unavailable Caren Coy MD Attending Clinician Unavailable Beto Huerta Attending Clinician [phone] RITA HUBBARD Admitting Clinician Unavailable Payers Payer Name Policy Type Policy Number Effective Date Expiration Date S michael JEFFRIESTZULMA 53 [id number] 2023 Common 00:00:00 [facility] 53 [id number] 2021 2023 [facility] 00:00:00 00:00:00 [facility] Blue Cross Blue 6 [id number] 2013 Common [employer] of [place] 00:00:00 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 [id number] Prostate Problem Com mon nodule 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 [id number] Bipolar Problem Common affective Spirit disorder, - [facility] remission [facility] unspecifie Medica l d Center [id number] Hypertrigl Problem Co mmon yceridemia [facility] [id number] Abnormal Problem Comm on urinalysis [facility] [id number] Insomnia, Problem Com mon unspecifie Spirit d type [facility] [id number] Excessive Problem Com mon cerumen in Spirit right ear - [facility]I canal [facility] [id number] History of Problem Co mmon attention Spirit deficit - [facility] disorder [facility] [id number] Vitamin D Problem Comm on deficiency [facility] Nicotine Nicotine Problem Commo n dependence dependence Sp rachna [facility] [id number] Leukocytos Problem Co mmon is, Spirit unspecifie - [facility]I d [facility] [id number] Elevated Problem Comm on serum Spirit creatinine [facility] Hyperlipid Other Problem Commo n emia hyperlipid [facility] emia [facility] Allergies, Adverse Reactions, Alerts Allergy Allergy Status Severity Reaction(s) Onset Inactive Treating Comm ents Source Name Type Date Date Clinician NO KNOWN Allergy Active [facility] Social History Social Habit Start Date Stop Date Quantity Comments Source Sexual orientation 2023-02-[address] [facility] 11:17:13 (finding) Medical Center History of tobacco Snuff User [facility] use Medical Center History [facility] Non-Med [facility] Alcohol intake 2023-02-27 2023-02-27 Ex-drinker [facility]00 (finding) Medical Center History of Social 2023-02-27 2023-02-[address] [facility] function 00:00:00 00:00:00 Medical Center History [facility] 2023-02-27 2023-02-[address] [facility] Transport Med 00:00:00 00:00:[address] [facility] 2023-02-27 2023-02-[address] [facility] Housing Unable to 00:00:00 00:00:00 Medical Center Pay History [facility] 2023-02-27 2023-02-[address] [facility] Housing Places 00:00:00 00:00:00 Medical Ce nter Lived History [facility] 2023-02-27 2023-02-[address] [facility] Housing Homeless 00:00:00 00:00:00 Medical Center Last Year Cigarettes smoked 2023-02-19 2023-02-[address] [facility] current (pack per 00:00:00 00:00:00 Medical Center day) - Reported Cigarette 2023-02-19 2023-02-[address] [facility] pack-years 00:00:00 00:00:00 Medical Center Tobacco use and 2023-02-19 2023-02-19 User of smokeless [facility] exposure 00:00:00 00:00:00 tobacco Medical Center Sex Assigned At [address] [facility] 00:[facility]00 00:[facility]:00 Medical Center Smoking Status Start Date Stop Date Source Smokes tobacco daily 2023-02-19 00:00:00 [facility] Medications Ordered Filled Start Stop Current Ordering Indication Dosage Frequency Signature Comments Components Source Medication Medication Date Date Medication? Clinician (SIG) Name Name Sildenafil Sildenafil No 1{table QD Sildenafil Citrate 20 Citrate 20 9-28 t} Citrate 20 MG MG 00:00: MG 00 Sildenafil Sildenafil No 1{table QD Sildenafil Citrate 20 Citrate 20 9-28 t} Citrate 20 MG MG 00:00: MG 00 Sildenafil Sildenafil No 1{table QD Sildenafil Citrate 20 Citrate 20 9-28 t} Citrate 20 MG MG 00:00: MG 00 Sildenafil Sildenafil No 1{table QD Sildenafil Citrate 20 Citrate 20 9-28 t} Citrate 20 MG MG 00:00: MG 00 Sildenafil Sildenafil No 1{table QD Sildenafil Citrate 20 Citrate 20 9-28 t} Citrate 20 MG MG 00:00: MG 00 Sildenafil Sildenafil No 1{table QD Sildenafil Citrate 20 Citrate 20 9-28 t} Citrate 20 MG MG 00:00: MG 00 Sildenafil Sildenafil No 1{table QD Sildenafil Citrate 20 Citrate 20 9-28 t} Citrate 20 MG MG 00:00: MG 00 buPROPion Yes 300mg QD Take 1 [facility]I S t (WELLBUTRIN 5-16 tablet [facility] XL) 300 MG 15:41: (300 mg Medi abby 24 hr 31 total) by Center tablet mouth in the morning. diphenhydrA 2022-0 Yes 50mg Take [address] MINE 5-16 capsule [facility]ukes (BENADRYL) 15:41: (50 mg Medic al 50 MG 31 total) by Center capsule mouth every night as needed for Itching. buPROPion 2022-0 Yes 300mg QD Take 1 CHI S t (WELLBUTRIN 5-16 tablet [facility] XL) 300 MG 15:41: (300 mg Medi abby 24 hr 31 total) by Center tablet mouth in the morning. diphenhydrA 3-0 Yes 50mg Take [address] MINE 5-16 capsule [facility] (BENADRYL) 15:41: (50 mg Medic al 50 MG 31 total) by Center capsule mouth every night as needed for Itching. magnesium 2022-0 Yes 30mL QD Take 30 [facility]I S t hydroxide 5-16 mLs by [facility]ukes (MILK OF 00:00: mouth in Medic al MAGNESIA) 00 the Center 400 mg/5 mL morning. Susp magnesium 2023-0 Yes 30mL QD Take 30 [facility]I S t hydroxide 5-16 mLs by [facility]ukes (MILK OF 00:00: mouth in Medic al MAGNESIA) 00 the Center 400 mg/5 mL morning. Susp polyethylen 2023-0 2023- No 17g QD Take [address] e glycol 5-16 05-30 by mouth [facility] (GLYCOLAX) 00:00: 23:59 nightly Med ical 17 gram 00 :00 for 14 Center packet days. docusate 2023-0 2023- No 100mg Q.5D Take 1 [facility]I S t sodium 5-16 05-30 capsule [facility] (COLACE) 00:00: 23:59 (100 mg Medic al 100 MG 00 :00 total) by Center capsule mouth in the morning and 1 capsule (100 mg total) before bedtime. Do all this for 14 days. polyethylen 2023-0 2023- No 17g QD Take [address] e glycol 5-16 05-30 by mouth [facility] (GLYCOLAX) 00:00: 23:59 nightly Med ical 17 gram 00 :00 for 14 Center packet days. docusate 2023-0 2023- No 100mg Q.5D Take 1 CHI S t sodium 5-16 05-30 capsule [facility] (COLACE) 00:00: 23:59 (100 mg Medic al 100 MG 00 :00 total) by Center capsule mouth in the morning and 1 capsule (100 mg total) before bedtime. Do all this for 14 days. traMADoL 2023-0 2023- No 50mg Take [address] (ULTRAM) 50 5-16 05-26 tablet (50 L ukes mg tablet 00:00: 23:59 mg total) Me dical 00 :00 by mouth Center every 6 (six) hours as needed for Pain for up to 10 days. Max Daily Amount: 200 mg traMADoL 2023-0 2023- No 50mg Take [address] (ULTRAM) 50 5-16 05-26 tablet (50 L ukes mg tablet 00:00: 23:59 mg total) Me dical 00 :00 by mouth Center every 6 (six) hours as needed for Pain for up to 10 days. Max Daily Amount: 200 mg ciprofloxac 2022- No 500mg Q.5D Take [address] in HCl 02-27 tablet [facility] (CIPRO) 500 00:00: 23:59 (500 mg Me dical MG tablet 00 :00 total) by Cente r mouth in the morning and 1 tablet (500 mg total) before bedtime. Do all this for 3 days. Start day before appointmen t for sanchez removal. ciprofloxac 2022- No 500mg Q.5D Take [address] in HCl 02-27 tablet [facility] (CIPRO) 500 00:00: 23:59 (500 mg Me dical MG tablet 00 :00 total) by Cente r mouth in the morning and 1 tablet (500 mg total) before bedtime. Do all this for 3 days. Start day before appointmen t for sanchez removal. Gentamicin Gentamicin 2021-10 No 240mg Common 80mg 80mg 2 Spirit 00:00: - CHI [facility] Gentamicin Gentamicin 2021-10 No 240mg Common 80mg 80mg 12-06 Spirit 00:00: - [facility] Gentamicin Gentamicin 2021-10 No 240mg Common 80mg 80mg 12-06 Spirit 00:00: - [facility] Gentamicin Gentamicin 2021-10 No 240mg Common 80mg 80mg 12-06 Spirit 00:00: - [facility] Gentamicin Gentamicin 2021-10 No 240mg Common 80mg 80mg 12-06 Spirit 00:00: - [facility] Gentamicin Gentamicin 2021-10 No 240mg Common 80mg 80mg 12-06 Spirit 00:00: - [facility] Gentamicin Gentamicin 2021-10 No 240mg Common 80mg 80mg 2 Spirit 00:00: - [facility] Gentamicin Gentamicin 2021-10 No 240mg Common 80mg 80mg 12-06 Spirit 00:00: - [facility] Gentamicin Gentamicin 2021-10 No 240mg Common 80mg 80mg 12-06 Spirit 00:00: - [facility] levoFLOXaci levoFLOXaci 2021-10- No QD [...] it as needed - CHI with food [facility] Benadryl Benadryl Yes Haley 1 capsule C ommon Millender at bedtime Spir it for sleep - [facility]I and [facility] Wellbutrin Wellbutrin Yes Haley 1 tablet Common XL XL Millender in the Spirit morning - [facility] Vitamin D3 Vitamin D3 Yes Haley 1 capsule Common Millender Spirit [facility] Benadryl 25 Benadryl 25 No [...] 25 MG dtime_a 25 MG s_neede d} Unisom Unisom No 1{table QD Unisom SleepTabs [...] cm WEIGHT 2023-02-19 13:42:00 90.719 kg height 2023-02-20 13:00:00 70 [in_i] [facility] weight 2023-02-20 13:00:00 200.6 [lb_av] Common [facility] temperature 2023-02-20 13:00:00 98.5 [degF] [facility] bmi 2023-02-20 13:00:00 28.78 kg/m2 [facility] oximetry 2023-02-20 13:00:00 98 % [facility] respiratory rate 2023-02-20 13:00:00 18 /min Comm on [facility] blood pressure 2023-02-20 13:00:00 140 mm[Hg] Common [facility] - systolic [facility] blood pressure 2023-02-20 13:00:00 84 mm[Hg] Common [facility] - diastolic [facility] height 2023-02-14 08:00:00 70 [in_i] Common S [facility] weight 2023-02-14 08:00:00 199.2 [lb_av] Common [facility] temperature 2023-02-14 08:00:00 98.1 [degF] Common [facility] bmi 2023-02-14 08:00:00 28.58 kg/m2 [facility] oximetry 2023-02-14 08:00:00 100 % [facility] respiratory rate 2023-02-14 08:00:00 16 /min Comm on [facility] blood pressure 2023-02-14 08:00:00 129 mm[Hg] Common [facility] - systolic [facility] blood pressure 2023-02-14 08:00:00 76 mm[Hg] Common [facility] diastolic [facility] height 2022-12-29 09:45:00 70 [in_i] Common [facility] weight 2022-12-29 09:45:00 197 [lb_av] Common S [facility] medical centerit [facility] temperature 2022-12-29 09:45:00 97.5 [degF] Common S [facility] bmi 2022-12-29 09:45:00 28.26 kg/m2 Common S [facility] oximetry 2022-12-29 09:45:00 99 % [facility] respiratory rate 2022-12-29 09:45:00 18 /min Comm on [facility] blood pressure 2022-12-29 09:45:00 132 mm[Hg] Common [facility] - systolic [facility] blood pressure 2022-12-29 09:45:00 88 mm[Hg] Common [facility] - diastolic [facility] height 2022-11-30 10:00:00 70 [in_i] Common S pirit [facility] weight 2022-11-30 10:00:00 192.4 [lb_av] Common [facility] temperature 2022-11-30 10:00:00 98 [degF] Common S pirit [facility] bmi 2022-11-30 10:00:00 27.6 kg/m2 Common S pirit [facility] oximetry 2022-11-30 10:00:00 100 % Common S [facility] respiratory rate 2022-11-30 10:00:00 18 /min Comm on [facility] blood pressure 2022-11-30 10:00:00 136 mm[Hg] Common [facility] - systolic [facility] blood pressure 2022-11-30 10:00:00 64 mm[Hg] Common [facility] - diastolic [facility] height 2022-10-20 09:15:00 70 [in_i] Common S pirit [facility] weight 2022-10-20 09:15:00 193.2 [lb_av] [facility] temperature 2022-10-20 09:15:00 97.7 [degF] Common S pirit [facility] bmi 2022-10-20 09:15:00 27.72 kg/m2 Common S pirit [facility] oximetry 2022-10-20 09:15:00 99 % Common S pirit [facility] respiratory rate 2022-10-20 09:15:00 18 /min Comm on [facility] blood pressure 2022-10-20 09:15:00 136 mm[Hg] Common [facility] - systolic [facility] blood pressure 2022-10-20 09:15:00 74 mm[Hg] Common [facility] - diastolic [facility] height 2022 16:00:00 70 [in_i] Common S pirit [facility] weight 2022 16:00:00 195 [lb_av] Common S [facility] center[facility] temperature 2022 16:00:00 97.2 [degF] Common [facility] bmi 2022 16:00:00 27.98 kg/m2 Common S [facility] oximetry 2022 16:00:00 99 % Common S [facility] respiratory rate 2022 16:00:00 18 /min Comm on [facility] blood pressure 2022 16:00:00 143 mm[Hg] Common [facility] - systolic [facility] blood pressure 2022 16:00:00 79 mm[Hg] Common [facility] - diastolic [facility] height 2022-08-16 08:00:00 70 [in_i] Common [facility] weight 2022-08-16 08:00:00 190 [lb_av] Common [facility] temperature 2022-08-16 08:00:00 98.1 [degF] Common [facility] bmi 2022-08-16 08:00:00 27.26 kg/m2 Common [facility] oximetry 2022-08-16 08:00:00 98 % Common [facility] respiratory rate 2022-08-16 08:00:00 17 /min Comm on [facility] blood pressure 2022-08-16 08:00:00 120 mm[Hg] Common [facility] - systolic [facility] blood pressure 2022-08-16 08:00:00 76 mm[Hg] Common [facility] - diastolic [facility] height 2022-06-28 08:00:00 69.75 [in_i] Common [facility] weight 2022-06-28 08:00:00 192.2 [lb_av] Common [facility] temperature 2022-06-28 08:00:00 97.3 [degF] Common [facility] bmi 2022-06-28 08:00:00 27.77 kg/m2 [facility] oximetry 2022-06-28 08:00:00 100 % [facility] respiratory rate 2022-06-28 08:00:00 16 /min Comm on [facility] blood pressure 2022-06-28 08:00:00 113 mm[Hg] Common [facility] - systolic [facility] blood pressure 2022-06-28 08:00:00 74 mm[Hg] Common [facility] - diastolic [facility] height 2022-06-28 11:30:00 69.75 [in_i] [facility] weight 2022-06-28 11:30:00 191.2 [lb_av] [facility] temperature 2022-06-28 11:30:00 98 [degF] [facility] bmi 2022-06-28 11:30:00 27.63 kg/m2 [facility] oximetry 2022-06-28 11:30:00 93 % [facility] respiratory rate 2022-06-28 11:30:00 16 /min Comm on [facility] blood pressure 2022-06-28 11:30:00 140 mm[Hg] Common [facility] systolic [facility] blood pressure 2022-06-28 11:30:00 82 mm[Hg] Common [facility] - diastolic [facility] temperature 2022-04-05 08:00:00 97.9 [degF] [facility] bmi 2022-04-05 08:00:00 27.45 kg/m2 Common S [facility] oximetry 2022-04-05 08:00:00 100 % [facility] respiratory rate 2022-04-05 08:00:00 16 /min Comm on [facility] blood pressure 2022-04-05 08:00:00 119 mm[Hg] Common [facility] - systolic [facility] blood pressure 2022-04-05 08:00:00 70 mm[Hg] Common [facility] - diastolic [facility] height 2022-04-05 08:00:00 69.75 [in_i] Common [facility] weight 2022-04-05 08:00:00 190 [lb_av] Common [facility] height 2022-01-02 09:20:00 69.75 [in_i] Common [facility] weight 2022-01-02 09:20:00 186 [lb_av] [facility] temperature 2022-01-02 09:20:00 97.3 [degF] [facility] bmi 2022-01-02 09:20:00 26.88 kg/m2 [facility] oximetry 2022-01-02 09:20:00 100 % [facility] respiratory rate 2022-01-02 09:20:00 16 /min Comm on [facility] blood pressure 2022-01-02 09:20:00 118 mm[Hg] Common [facility] - systolic [facility] blood pressure 2022-01-02 09:20:00 75 mm[Hg] Common [facility] - diastolic [facility] height 2021-12-07 09:40:00 69.75 [in_i] Common [facility] weight 2021-12-07 09:40:00 193 [lb_av] [facility] temperature 2021-12-07 09:40:00 97.4 [degF] Common [facility] bmi 2021-12-07 09:40:00 27.89 kg/m2 [facility] oximetry 2021-12-07 09:40:00 100 % [facility] respiratory rate 2021-12-07 09:40:00 16 /min Comm on [facility] blood pressure 2021-12-07 09:40:00 121 mm[Hg] Common [facility] - systolic [facility] blood pressure 2021-12-07 09:40:00 72 mm[Hg] Common [facility] - diastolic [facility] Heart rate 2023-02-27 11:54:27 89 /min [facility] Respiratory rate 2023-02-27 11:54:27 18 /min [facility] Oxygen saturation in 2023-02-27 11:54:27 99 /min [facility] Arterial blood by Medical Ce nter Pulse oximetry Body temperature 2023-02-27 11:53:43 36.72 Carmen [facility] Systolic blood 2023-02-27 11:53:30 113 mm[Hg] [facility] Diastolic blood 2023-02-27 11:53:30 69 mm[Hg] [facility] Body height 2023-02-26 11:20:00 177.8 cm [facility] Body weight 2023-02-26 11:20:00 89.9 kg [facility] BMI 2023-02-26 11:20:00 28.44 kg/m2 [facility] Procedures Procedure Date / Time Performed Performing Clinician [facility] derek CBC (HEMOGRAM ONLY) 2023-02-27 04:48:00 [facility] BASIC METABOLIC PANEL 2023-02-27 04:48:00 [facility] CBC (HEMOGRAM ONLY) 2023-02-26 21:27:00 [facility] BASIC METABOLIC PANEL 2023-02-26 21:27:00 [facility] TISSUE EXAM 2023-02-26 17:16:00 Rita Hubbard [facility] RRL CRITICAL LABS 2023-02-26 16:47:31 Rita Hubbard [facility] (ABG,NA,K,H&H,GLUCOSE) Medical C enter CALCIUM, IONIZED 2023-02-26 16:47:31 Rita Hubbard [facility] BLOOD GAS, ARTERIAL 2023-02-26 16:47:31 iRta Hubbard [facility] SODIUM NA-STAT LAB 2023-02-26 16:47:31 Rita Hubbard [facility] POTASSIUM-STAT LAB 2023-02-26 16:47:31 Rita Hubbard [facility] GLUCOSE-STAT LAB 2023-02-26 16:47:31 Rita Hubbard [facility] HGB/HCT (H&H) - STAT LAB 2023-02-26 16:47:31 Rita Hubbard C HI [facility] ROBOTIC 2023-02-26 15:22:00 Rita Hubbard [facility] es LAPAROSCOPY,RADICAL Medical Cent er PROSTATECTOMY PROCEDURE W/ DAVINCI XI 2023-02-26 15:22:00 Rita Hubbard CH I [facility] ABORH, MANUAL 2023-02-26 11:59:00 Laura Washington [facility] TYPE AND SCREEN, 2023-02-26 11:36:00 Ady Smiley [facility] Plan of Care Planned Activity Planned Date Details Comments Source Future Scheduled 2024-02-[address] [facility] Test 00:00:00 Counseling and Screening [facility] (12+) [code = Tobacco Cessation Counseling and Screening (12+)] Future Scheduled 2024-02-[address] [facility] Test 00:00:00 Counseling and Screening [facility] (12+) [code = Tobacco Cessation Counseling and Screening (12+)] Future Scheduled 2023-06-15 Influenza Vaccine (#1) [facility] 00:00:00 [code = Influenza Vaccine Me dical Center (#1)] Future Scheduled 2023-06-15 Influenza Vaccine (#1) [facility] 00:00:00 [code = Influenza Vaccine Me dical Center (#1)] Future Scheduled 2022-10-[address] [facility] Test 00:00:00 (12+) [code = DEPRESSION Med ical Center SCREENING (12+)] Future Scheduled 2022-10-[address] [facility] Test 00:00:00 (12+) [code = DEPRESSION Med ical Center SCREENING (12+)] Future Scheduled 2019 Screening for malignant [facility] Test 00:00:00 neoplasm of lung Medical Donna ter (procedure) [code = 920577259] Future Scheduled 2019 SHINGLES VACCINES ([address] [facility] Test 00:00:00 2) [code = SHINGLES Medical Center VACCINES (1 of 2)] Future Scheduled 2019 Screening for malignant [facility] Test 00:00:00 neoplasm of lung Medical Donna [facility] (procedure) [code = 100492705] Future Scheduled 2019 SHINGLES VACCINES ([address] [facility] Test 00:00:00 2) [code = SHINGLES [facility] VACCINES (1 of 2)] Future Scheduled 2004 Lipid panel (procedure) [facility] Test 00:00:00 [code = 01313366] Medical Ce nter Future Scheduled 2004 Lipid panel (procedure) [facility] Test 00:00:00 [code = 05161139] Medical Ce nter Future Scheduled 1988 DTAP/TDAP/TD VACCINES ([address] [facility] Test 00:00:00 - Tdap) [code = Medical Cent er DTAP/TDAP/TD VACCINES (1 - Tdap)] Future Scheduled 1988 DTAP/TDAP/TD VACCINES ([address] [facility] Test 00:00:00 - Tdap) [code = Medical Cent er DTAP/TDAP/TD VACCINES (1 - Tdap)] Future Scheduled 1987 HEPATITIS C SCRE[facility]ING [facility] 00:00:00 [code = HEPATITIS C Medical Center SCREENING] Future Scheduled 1987 HEPATITIS C [facility]CRE[facility]ING [facility] 00:00:00 [code = HEPATITIS C Medical Center SCREENING] Future Scheduled [address] Human immunodeficiency [facility] 00:00:00 virus screening Medical Cent er (procedure) [code = 196605172] Future Scheduled [address] [facility] 00:00:00 virus screening Medical Cent er (procedure) [code = 835515993] Future Scheduled 1975 Pneumococcal Vaccine: [facility] Test 00:00:00 0-64 Years (1 - PCV) Medical Center [code = Pneumococcal Vaccine: 0-64 Years (1 - PCV)] Future Scheduled 1975 Pneumococcal Vaccine: [facility] Test 00:00:00 0-64 Years (1 - PCV) Medical Center [code = Pneumococcal Vaccine: 0-64 Years (1 - PCV)] Future Scheduled 1970-04-05 COVID-19 VACCINE (#1) [facility] 00:00:00 [code = COVID-19 VACCINE Med ical Center (#1)] Future Scheduled 1970-04-05 COVID-19 VACCINE (#1) [facility] 00:00:00 [code = COVID-19 VACCINE Med ical Center (#1)] Future Scheduled 1969 CT Colonography (combo) [facility] Test 00:00:00 [code = CT Colonography Medi abby Center (combo)] Future Scheduled 1969 Screening for malignant [facility] 00:00:00 neoplasm of colon Medical Ce nter (procedure) [code = 576815825] Future Scheduled 1969 Screening for malignant [facility] 00:00:00 neoplasm of colon Medical Ce nter (procedure) [code = 443398527] Future Scheduled 1969 Screening for malignant [facility] 00:00:00 neoplasm of colon Medical Ce nter (procedure) [code = 842533773] Future Scheduled 1969 Screening for malignant [facility] 00:00:00 neoplasm of colon Medical Ce nter (procedure) [code = 959629318] Future Scheduled 1969 Sigmoidoscopy [code = [facility]] Medical Cent[facility] r Future Scheduled 1969 CT Colonography (combo) [facility] 00:00:00 [code = CT Colon[facility] (combo)] Future Scheduled 1969 Screening for malignant [facility] 00:00:00 neoplasm of colon Medical Ce nter (procedure) [code = 503934473] Future Scheduled 1969 Screening for malignant [facility] 00:00:00 neoplasm of colon Medical Ce nter (procedure) [code = 685847077] Future Scheduled 1969 Screening for malignant [facility] 00:00:00 neoplasm of colon Medical Ce nter (procedure) [code = 618570393] Future Scheduled 1969 Screening for malignant [facility] 00:00:00 neoplasm of colon Medical Ce nter (procedure) [code = 644529308] Future Scheduled 1969 Sigmoidoscopy [code = [facility] S[facility]oscopy] Medical Cente r Encounters Start End Encounter Admission Attending Care Care Encounter Source Date/Time Date/Time Type Type Clinicians Facility Department ID 2023-08-16 Outpatient Ramsey, STLMLC STLMLC [id number] Common 08:52:[id number] [facility] 2023-02-01 Outpatient Ramsey, STLMLC STLMLC [id number] Common 09:26:[address] [facility] 2022-08-15 Outpatient Ramsey, STLMLC STLMLC [id number] Common 07:46:[address] [facility] 2022-06-28 Outpatient Ramsey, STLMLC STLMLC [id number] Common 10:58:[address] [facility] 2022-06-27 Outpatient Ramsey, STLMLC STLMLC [id number] Common 11:36:[address] [facility] 2022-06-26 Outpatient Ramsey, STLMLC STLMLC [id number] Common 09:38:[address] [facility] 2021-12-29 Outpatient Ramsey, STLMLC STLMLC [id number] Common 08:38:[address] [facility] 2021-11-09 Outpatient Ramsey, STLMLC STLMLC [id number] Common 13:42:[address] [facility] 2021-11-09 Outpatient Ramsey, STLMLC STLMLC [id number] Common 12:38:[address] [facility] 2021-11-09 Outpatient Ramsey, STLMLC STLMLC [id number] Common 12:36:[address] [facility] 2021-11-09 Outpatient Ramsey, STLMLC STLMLC [id number] Common 12:34:[address] [facility] 2021-11-09 Outpatient Anthony, STLMLC STLMLC [id number] Common 12:32:[address] [facility] 2021-11-09 Outpatient Anthony, STLMLC STLMLC [id number] Common 12:18:[address] [facility] 2021-11-09 Outpatient STSANGEETALC STLMLC [id number] Common 12:16:[address] [facility] 2021-11-09 Outpatient Navdeep Rodriguez STLMLC STLMLC [id number] Common 12:11:[address] [facility] 2021-11-09 Outpatient Navdeep Rodriguez STLMLC STLMLC [id number] Common 11:59:[address] [facility] 2021-11-09 Outpatient Navdeep Rodriguez STSANGEETALC STLMLC [id number] Common 11:59:[id number] [facility] 2021-11-09 Outpatient Rick STLMLC STLMLC [id number] Common 11:49:[address] [facility] 2023-03-07 2023-03-07 Postop STLMLC STLMLC [id number] Co mmon 00:00:00 00:00:[address] [facility] 2023-02-28 2023-02-28 (TEL) STLMLC STLMLC [id number] Co mmon 00:00:00 00:00:00 [facility] 2023-02-26 2023-02-27 [facility] BRANDI Hubbard [facility] [id number] 10:38:00 15:40:00 Encounter [facility] 2023-02-26 2023-02-27 Outpatient BRANDI HUBBARD [facility] Surgery [id number] [facility] 10:38:00 15:40:00 RITA 2023-02-26 2023-02-27 [facility] Patrick [facility] [id number] 10:38:00 15:40:00 Encounter [facility] 2023-02-27 2023-02-27 Travel [facility] [id number] [facility] 00:00:00 [facility] 2023-02-27 2023-02-27 Travel [facility] [id number] [facility] 00:[facility]00 00:00:00 [facility] 2023-02-26 2023-02-[address] [facility] [id number] [facility] 15:22:00 21:23:00 Event [facility] 2023-02-26 2023-02-[address] [facility] [id number] [facility] 15:22:00 21:23:00 Event [facility] 2023-02-26 2023-02-26 Surgery Hubbard, [facility] [id number] 14:40:00 20:15:00 [facility] 2023-02-26 2023-02-26 Surgery Patrick, [facility] [id number] 14:40:00 20:15:00 [facility] 2023-02-26 2023-02-26 Travel [facility] [id number] [facility] 00:[facility]:00 00:00:00 [facility] 2023-02-26 2023-02-26 Travel [facility] [id number] [facility] 00:[facility]00 00:00:00 [facility] 2023-02-20 2023-02-20 OFFICE STLMLC STLMLC [id number] Co mmon 00:00:00 00:00:00 VISIT Kranthi LONG PT - [facility] LEVEL 3 [facility] 2023-02-19 2023-02-19 Outpatient EL SLE SLE [id number] SLE 00:00:00 00:00:00 2023-02-19 2023-02-19 (TEL) STLMLC STLMLC [id number] Co mmon 00:00:00 00:00:00 Spirit - [facility] 2023-02-19 2023-02-19 Travel [facility] [id number] [facility] 00:[facility]00 00:00:00 [facility] 2023-02-19 2023-02-19 Travel [facility] [id number] [facility] 00:[facility]00 00:00:00 [facility] 2023-02-14 2023-02-14 OFFICE STLMLC STLMLC [id number] Co mmon 00:00:00 00:00:00 VISIT Spirit ESTAB PT - CHI LEVEL 3 [facility] 2022-12-29 2022-12-29 OFFICE STLMLC STLMLC [id number] Co mmon 00:00:00 00:00:00 VISIT Spirit ESTAB PT - CHI LEVEL 3 [facility] 2022-11-30 2022-11-30 OFFICE STLMLC STLMLC [id number] Co mmon 00:00:00 00:00:00 VISIT Spirit ESTAB PT - CHI LEVEL 4 [facility] 2022-10-20 2022-10-20 OFFICE STLMLC STLMLC [id number] Co mmon 00:00:00 00:00:00 VISIT Spirit ESTAB PT - [facility] LEVEL 5 [facility] 2022 2022 (PROC) STLMLC STLMLC [id number] Co mmon 00:00:00 00:00:00 Procedure Spir it - [facility] 2022-09-21 2022-09-21 (TEL) STLMLC STLMLC [id number] Co mmon 00:00:00 00:00:00 Spirit - [facility] 2022-08-16 2022-08-16 PREV VISIT STLMLC STLMLC [id number] Common 00:00:00 00:00:00 EST AGE Spirit 40-64 - [facility] 2022-06-28 2022-06-28 OFFICE STLMLC STLMLC [id number] Co mmon 00:00:00 00:00:00 VISIT EST Spir it PT LEVEL 3 - [facility] 2022-06-28 2022-06-28 OFFICE STLMLC STLMLC [id number] Co mmon 00:00:00 00:00:00 VISIT NEW Spir it PT LEVEL 3 - [facility] 2022-04-05 2022-04-05 OFFICE STLMLC STLMLC [id number] Co mmon 00:00:00 00:00:00 VISIT [facility] PT - CHI LEVEL 4 [facility] 2022-01-10 2022-01-10 (TEL) STLMLC STLMLC [id number] Co mmon 00:00:00 00:00:00 [facility] 2022-01-02 2022-01-02 OFFICE STLMLC STLMLC [id number] Co mmon 00:00:00 00:00:00 VISIT [facility] PT - CHI LEVEL 4 [facility] 2021-12-07 2021-12-07 OFFICE STLMLC STLMLC [id number] Co mmon 00:00:00 00:00:00 VISIT [facility] PT - CHI LEVEL 4 [facility] 2021-08-16 2021-08-16 (TEL) STLMLC STLMLC [id number] Co mmon 00:00:00 00:00:00 [facility] 2021-06-08 2021-06-08 Outpatient STLMLC STLMLC [id number] Common 00:00:00 00:00:00 [facility] 2020-12-09 2020-12-09 Outpatient STLMLC STLMLC [id number] Common 00:00:00 00:00:00 [facility] 2020-10-20 2020-10-20 Outpatient STLMLC STLMLC [id number] Common 00:00:00 00:00:00 [facility] 2020-10-13 2020-10-13 Outpatient STLMLC STLMLC [id number] Common 00:00:00 00:00:00 [facility] 2020-09-22 2020-09-22 Outpatient STLMLC STLMLC [id number] Common 00:00:00 00:00:00 [facility] 2020-08-10 2020-08-10 Outpatient STLMLC STLMLC [id number] Common 00:00:00 00:00:00 [facility] 2020-01-18 2020-01-18 Out[facility] [id number] Common 19:41:00 19:41:[address] [facility] 2019-12-25 2019-12-25 Outpatient [facility] [id number] Common 08:00:00 08:00:[address] [facility] 2019-02-05 2019-02-05 Outpatient [facility] [id number] Common 10:21:00 10:21:[address] [facility] 2019-01-23 2019-01-23 Out[facility] [id number] Common 19:19:00 19:19:[address] [facility] 2019-01-23 2019-01-23 Outpatient [facility] [id number] Common 08:40:00 08:40:[address] [facility] 2018-02-07 2018-02-07 Outpatient [facility] [id number] Common 10:45:00 10:45:[address] [facility] [address] [facility] 2018-01-23 2018-01-23 Outpatient [facility] [id number] Common 08:30:00 08:30:[address] [facility] Results Test Description Test Time Test Comments Results Result Comments Source Tissue Exam 2023-03-23 19:53:03 Test Item Value Reference Range Interpretation Comme nts Case Report (test code = 104) Surgical Pathology Report Case: [id number] Authorizing Provider: Rita Hubbard MD Collected: 02/26/2023 05:16 PM Ordering Location: [facility] Received: 02/27/2023 08:45 AM SERVICES Pathologist: [...] SEMINAL VESICLES DIAGNOSIS (test code = 3220) n7jtlUEvROSdv7djSENcxNBdPgXbHbTdNcWwHn pcdWMx TUksbiLgHKvxwMloAMOeMYKuIQ0gfUfnoNl3qTooEIFg rtY4nESyOIuqv4vzQGL5q3orceypZZLdNLwcMh7ksUUr yMmnGcDxDHIyFRx8bB97CMWylL7yqJAgZJb0RLBifYRs ddDrLjIdXBKbmBUeyCE9UXNjPG4luawjSStcHBxkIHOn lmI0XWKokEGlN3WdGDAqHG4sriipQHB2SNamLUXfQJI8 GcCsAWWxx8Beqjd0YoJohTPwRRevxLJecasxchJmTTJz ENzRDBEDIO3NCZGlBFGZYACDQZ6GEVQBFybGBl7NWQHT AZJmJKYGY2yVRC9DMRZkvyh1NPLaMVBRYG1UH54rTchL Zb5PCIpLX7EPCDSWP4PQFEydCKPtlFRsRL5uRc7iKFbY RFyPIWYqSMlLV3FHARqRWG1XMKEKNPOslDYfCVFjacVN UjLFKlyWKBAHDBHWYPFFFIDrFyNOMsGBDBHXSR5dTYHC G5kDCD3EAUEocoo9JWGjRD1VQ7PFDHWOUQSWOgOAFLaC N10BHuJJMXJpUhpdHFLmaLZfCGGsGXRTZ7UEVUHBPIYE FhKLJrvKXkHXPHqOFDzaDIYGM4hZDPVOBNDUA4nZEzme ZJFwmCTuRE3CETzIQKmAJHUKN7YzSBIQAGwDXR7ZCYjq MFCwpXNwASSaMDLYNI6RVibgLajEUVICYbOKPPMEHWZS JiZLQaqQHqUSHFALCJ1aPHHKO9zPHN9WDAPoiib9UTPw BI9QJ6OEWCAQPIIIAtSXTCbKE64CKrKSRXHtvjnuWFSg YA8jVNfRMQnuMy3RTFohFtbXBCXiYJHITmkDQQTMPFQM S0dNVoueMPYqmAQnRH7GUYJOPFZZGL8HP27kNLhLSQot Lc0AMCNbPVZeBxtmmKTdGYSfgkBNHzVSIW1YWJNAO4NC CVSZXHPBJCHYIOAPWyfdUAhVXZGXV96lzYArQKKwYzYp XKfZIYPXRqjLVgAUKL5KCYWVO2YKJbWpRmKmKonaeACl WZMgkkgeYZInTl6yIRKBD8VCSMUdIFFPSp2XULLaPENZ MNZBDDRfPGMTNQNRB7BFZLiLYWASFUlFHBgjHPIHA0OP VANFQT5LADvlyOTaSIznLnHzEHscejgqBYHgWVMIWx3S YBPQQP2IATAxXNiDZLLLM79uG7IPLhFlJfc7CSfpJLoB OACGUYpPH1UERZYqHGWTOpwPPyLUM02LTT1KRIgmUJFl tVlqQZbshjLdMBYdIDSnBKAiSJDiCK6OFFIDONBDZDMS EOCACP4WVK7MN4UTLCHOZHBMTtDYGC3PTtktKHVabTUr NI4DCWQjI70SQNZCWSxcMDArTyyfHHMmOnTbJTLePRMJ KC5YJfFSWZTOV7fQYATUSKEWB4ZNUJnOEKFGG7aBHNEI JNcDMUOMI0HTN4CSWtNNNFAUC6FMXLUAE9LQXSDJG5AR QKk8QMIlscwafZrpUIKfFX1QBXOYPFhRYK3VSMVtXGsZ V27BR5gNFQcdFRUiNtegTZReimbkSDXiKJVqzv68JLB9 PgOfg6Z1BJD1DKKiBFQjr4qtXOMjuZWnWdQaLkDmWaSf ZkikjMUjRTBkTeQoq4adm501cTBqo9oqOIBrCnZ9fHZe MBCepGIhB875GNIaRPdsa1uoy7PpEKRdyDInm6K1MIVD lhuntLd7jDmfR96xf1F2BpxsZ6xtLSNsHQEcX7CbHG4o GHCnPca4KFY1XFI2WARbYEVuU9GuLL6oAXEbzNBlHNh6 p1fadLudENLlIXE2z9zyACkdhhNgZH3rlw5kmDh7p5ov jxRrSGArXKMsiFVTDFTsY4OmcUnjAg3qlNz5uFoqIilb DCJ4Vod5QK9iwd36dhm1sEhyWCEffmhsYrN3XQtdUJPv nzhhNBp8MNzuNURrfDG3LXNquGZfR3WrXGYcNP9ukbu5 KCZ5YByvNYVqSbF3KEKzfALmXLSwyZksQMrqe437WYS1 NiPlUR6lG6Grm0C9yB5oiQPvTINkrIZxJrZfJEQhmw6h gTTiOYjyj9GvJRU4bhD1sWZnaLLuTOZxCbY1XSluRV2h ue57LVEyMUC6gv7tsATdmPamliPsvQZfZYafH8PoNZWi q078ESEqE9ZuPARau8H0ytSrMnTsJNDobGD5eeK3TPXf YU5tjdzyy3ifJStoVRyaVAGmjfN2plN1ULWpxWVjO4Xa lV3lRSPvNY6rnyhdc1exLVK2XKimXCSeSUH5MrPmADYb p0Umtdk3UlNqa3YrlDHyXAjdL49rb547WMYbtcGwP6xe yCIcshcqjFSmhmplOFdnfyP7PVUlWEidwzkyDLUyRXjz E3eyStUxEMRfjJhmOXtbm1QiFISoXEHeNjWnuRVjPYAy Fln7GWMqdHLfBQJpDhTeT2obljafZoFKVYIos0zwJ7ha iLCBcWNrV5RwBKgchkXsUIgzKRacDrLxSMj0RF19QkOu ENScii23 COMMENT (test code = 3359) k8pggYSzJEJjhQVaONAaZDahpjUpUAErdEGyJ6Og clxq ZDudVM6lXA5wbVmymCZpmFJuNTFcCbCxo3ieh395xEXe z2frZWEHqkwhxQs8sRapZ62yl1K7NfecU17zkODxZNJ1 CENiBZIhyFGmHPHjOQP4YCOkaFScT4xrQSRxNT1ljxzl RGwqJAkkDGQzzMI4LCYybMNiT7RiTMYaOSgrIRQwwaz7 DoXpYd7eiGPwfUsxJTqiJPWzJLNqVFicOBEcUkRaU7Rc bSznlwBfn3MwtUrsKBNuo5F3VBKqXFgsbjXfXNGtwe9c YXTllW6ysQElUvSbeCOpcYO0KGXaLLFqq5ExCG1wFIpx ya6vxtyjPxQhrFicbGYcZUdesHNapOPsQGUknVJ1z85g ds6uGMOgQNMoe75dajUirJRul3L1wEDkjGBjcS0jLOGi VJNpalM4hKIaxhsenMHdzA8egSSpo9dqmZDnTUokmEWc wYPlWNTpsAM6f37tRABkZTNvcKZcfhP8bYS8xmIhNPLo yVVganFbhHHzDXFpGB06CEWwtMwdP4onJQOjbpSxI84j JNOaAcRKfSZjl94yGSHgk7WaYHQwZCK2JVpcZCIJqLSb r4rjwOJ6EHi4DIYbJJX8QGViFsW1uEZtzTMfc0YvrNEv O48jtHPvw5ZmSJ6lMVvdRWEtr87wlAC7nJJsalA3GmHi JChnCFH8hA9yZCjyCZDtkeGwjnLnUNLnXIXcFPAwfa5x lZV9PHocbn0dMJd6yoUfxg2vtBW8bSMgMCk1HO5jdA6w THutJOqhZG33tNPbNWUtJULBQHMtjbV2uxGaTEclshQz zI6mGKkjCZqcXU35oKHxYDIqLNV3aFLmieLitD5gaU80 YTTaeArlkbVikyZsd5anbuReqcWuCAJvaBiwmZGlYeSq IEzsXHY3kvpyQ8QwDS1ogofifkAlDHHdsY6ziscdPuit GFKyqyEcOSWjJZDgYRAxKD7iujRjVVRvk7uvuUXeVXHf BXN6fetair8hljYrUYZ2WDE5pV5lAvwzDMM6 SYNOPTIC REPORT (test code = 5765) PROSTATE GLAND: Radical ProstatectomyPROSTATE GLAND: RADICAL PROSTATECTOMY - All Pjmeuxnkm7gz Edition - Protocol posted: 08/24/2021 SPECIMEN Procedure: Radical prostatectomy Prostate Size: Prostate Weight (Grams): 29.5 g Prostate Greatest Dimension (Centimeters): 4 cm Additional Prostate Dimension (Centimeters): 3.5 cm Additional Prostate Dimension (Centimeters): 3 cm TUMOR Histologic Type: Acinar adenocarcinoma Histologic Grade: Grade: Grade group 2 (Greenview Score 3 + 4 = 7) Minor [...] hyperplasia CPT Code(s) (test code = 3357) s1xsiLGbPXKuhUFxAXEeRXzcoiKkQYIqoBKc D7Dazrda OKilLT6hVN4fyViglPQlgNUeVLRnAgPbk8esd169fCJd s1hyDLURlcoycPc2bZazW26gz1H2WxwfU75vwGUlOFG9 EFFwMFWbmIDdUCLiLLC6BAUbvLLfE0pnBHMtYP7kggbl KKpyMRpoIDBakAY6SUPiyEScV6UbXRShUPvhOWLroya1 WyZbPi5rgZXnfErqVOryZBBlLVHvPCpaVDAoCkCfWRts DNX2YDiuUIThMUbgPXf0PvudDLMoKXclREydaGVgBFq4 QiZeLGMdmvR8FWC3MZwcSVQ8 CLINICAL HISTORY (test code = 3356) d0cwnHSxDWGdaDXhVC IbUWdsvyApTVDvuEUrD0Enedwr YJadIV4kMM7obMiraKUzoHObWRNzDzStl0xya963zUSb y2icVBFIzmuriYq7vZwfN09re3I7MfdgH3leACKlWOzb LCUvVQitcLEsPIt4ZMZtyJZxshJuBnFvYVWjiNRbsFU2 PTTxDP9uzmhmCNrvYLvoOXOquwU4FARrsDDhJ1XyUJJc OV6vaigjVFS2DEzlJJYeAGB2GpDuUYCsr3Mxqcs1VeAe sVPbJChxkBPenXatiE9zCkAdZTpnDuExHCMpz8CafZAv I0RsW4BjLLRgeo3= GROSS DESCRIPTION (test code = l6svsVHyYGIqvOEMJYOjWIJgSG5kxEcqyNt2 cGdwYXJc [id number]) [file] iAYrRD8LYSCpgeGaZBe8 MICROSCOPIC DESCRIPTION (test code g0qghPXxEBKumKUrJLXuIHiep bRoPAZdkRWuE6Yihikr = 3371) UHtlCG1uIF9pxRjewIPbiUSyOHRuPcArg5okr181tKVe q7qjWKEGbdvzxPj8fUliX00nt5N4ZkwgH08fdQYpBTM0 PIKgYNKbcQNkDINdQCI0KJStlERrA6thOFAuNF2pyhin PTarCFapGPIkxGM9LOYwoJDzM4NtEYQuBXetMULyyyy4 SpQkUs2htLCohWzjVGemUQWfARCyDAylZILgRdIfCT6X BqRZWJEau4AyTIDbABAcnqhyUGI4 SPECIAL STUDIES (test code = 3376) m5ilgPBdMLFpdMKcFYAeZGozc mAoWPZpyFEmT6Uvzicm [file] fYLkh4LywM7mlPU1EVO5gM1nCmzlCAI8 Gross assessment was performed at [facility] er, Department (test code = 2777) of Pathology, [address] [place] [address]28, Technical component was performed [facility] er, Department at (test code = 2778) of Pathology, [address] [place] [address]227, Professional component was [facility], Depart ment performed at (test code = 2779) of Pathology, [address] [place] [address], [facility] [id number] 19:53:03 Test Item Value Reference Range Interpretation Comments Case Report (test Surgical Pathology Report code = 104) Case: [id number] Authorizing Provider: Rita Hubbard MD Collected: 02/26/2023 05:16 PM Ordering Location: [facility] Received: 02/27/2023 08:45 AM SERVICES Pathologist: [...] Prostate, PROSTATE AND SEMINAL VESICLES DIAGNOSIS (test t7ztyJIyQXEvn9zqIDJwlQVxOzN code = 3220) wMzNcZnRuYmpcdWMxIHtccnRmMV tzsYmyVOHqPABjHY7rbPpqkCg8j TyaFZRtkhM5yUYpWIrsr9hqIBA0 n5ozxdujQPZvPApwLy4ziQGsuYy pItSkXYCgXMm0mH98IWGecP8zqA MwRUj2VDGlzZTfcsVqPwYpFNKum ZJteCM6SSPqFH5cnsmbURxlNBac SRVenoQ0FVRniSXwG7EvOFKhSO4 zbtsbOXD3IDqwGIAgZNT7JfKlIH Cdw0Wwmeb4FkTmpENuDQnqcBAio bufzpDbTZInERsRTOADEC0YNWTs ZFVTYVIGTO4CVHNKFylNYe3TBNV VQLVjDADKZ8yAVY5PGDSjsqa5CX PyBCWPJC9DF40mKhqICk0VVKwAP 1VCGUSPN7KWRPfxIXCnxYKbGZ1i Ih6lARzDRFaHCMGvUNpOB4WOKAc ZEW8VAMBNVDFufLApYRDfyuCEEz BVUklOQVJZIEJMQURERVIgTkVDS mUSFENWLZ6aDXKVO4hGUD5HANTg phy5NNWnHS4ZJ9PSTFPEKONVQmG PZQgGW52ZPpYOUCDjXhnyDIVfrY SzCPDkUIICH7GWSSOZXXSGIhCMW vfAJmTRMJmVPRbpCYNFM9oKUMLU VYGQV2rSKltzPGNslVLjUU4WYId KNZkITCOFD9FdRAFIWBqMPC6RJW bbUJQpsZFsPVNwRWIYDP3DAsfiY kxBRERFUiBORUNLLCBBTlRFUklP WvJQXBOERI7hROQZM7cMJK3NDGH wmgv1XSOiKA5PV0AUTBNNJZHSOa DXZWsVY34MJtNPKNTwbkxjJUCdR A5pHJwLNHeaZm5TMWohGikNNANo PSRXTwyMGIPUOQIDC4qYNdqoTGU vzQUlVB2XANOPYKWPEP0IQ42mYO sIVQsjDg3JVQPzMIHlUxjvyCUeC MSyfuACQcPLFA5VLNNRN6WGKYUJ MLBRYLRMEUXNExijPFeIKTCLV28 ccGFyXHRhYiAtVFdPIEJFTklHTi PKHS6RFYAQY4UPPhQbXlSxQrcif OPtTDJttqrtBIKnZr9qOOEPJ5HB WDGkWOAKAr3GDQCrIGHJSBFDDNP sAYOMWBFUP6GYVNdYTSUWZQzDPP tiWVMGI5CBZOXATW9YQKygrTGiA TrrKuJgGAfehsudUEKtJVGTZs7R MJWUKW3PZMAgKJqZKSQBQ30hF7J CMqWiOty2XWgpGDnLWRKJIDgOE1 EGVXDzACKGDwiSGjXBH58HSJ9GV FxwYXJcbGkwXGxpbjAgICAgICAg EKNeREUpKZ6YPXMWSDPMCPLODMV CTP8TRC8XY8JWDMLVJIFMXhQEYB 7SRmqlGEKwuNWnII3KMBGmO28YH UVOVFxwYXJcYlxwYXJcYjAgICAg YEQLLH1ZJrSONJASS1uIRNIVRSH IK3OVOOnKNOVOU9lGICYNBBmXJM ZOB2SAE1PXIdZTOBSRN9TBIQECR 9MRELDJK8IMDNj9UFVhgoldwQfy RFRaRY3XATCITKvBXH5DXCNaCMe FY02JN1hCRGxxGLYgQbstLKQddw bfMZBtNYZpmh50DDO5AmEuu0R7B TR7EKUqRXXio9adIGSuxNIsDuNq MwIzWiRlHkpjjNOdJIViGpYjn1b bk605sFFug0ktPWNdTbK8zVXqAW BsjKPuE881TLMjBYdmo5qox8EeV CKlcFFnc9S3NLEBkvkzrYm2oSyn B05ik4R9IikbJ2mlOSBzSXDdJ1D dUZ3lCXYyMup1ILU0GQO2VEIrRI SoQ4CzGH3xKBUrrMSpSOv5b1umt RhrHGLvADA7e0jpGYbjwcOmKE2n dn6noUg3z9zwshPbBPDnDQOfnWL WPKEcJ2SbkAdcAs7cuCf0eZqcSv qaHNG6Okr1HM1wlp49ugj8xDugK HDnsjkbIuA6SCygTPWvajwvEPp9 IFrrKMZguDU7CKJwjZPxK4QoGVI kTF6czko8BTF6FUcdPHOhCiS1PX SfhZIdIGInsRcaTYznj413CBJ5F xKwPY6gG5Csv9D2qM3oiCQmDMXr dYToEmOtTPIjxb0hqNTmVYtdi4K fXFS5lxX2kVRvgWUsUIUlTdT1MP wrLV5tix74JXQmCWX9cm4apBMlk FvpacSvcKEwAXrnI9AjFNDze784 WLFmC0PtGTJtk6O9nyIrUwHdITU gqAJ9svG0EUSrCP9ihsdpx6nqPO pkOZhhOFUofzR1yfO9CUDuxOEaK 6NafP3nJGZhNB6iefgyv8esQYX5 FInbDXVjJRY2IuTjTWNkz8Vwunq 9TuTxm5HacJJnLVupB40xi327MG TzdhGiX4ctbIAbjgconGCtkzwbU ArbfrH2ULOeDIfocrvvTQEfSRzu I5wjKnHyOVWvuZvkICaeh3QnUCH tBPShWbUqnXCdQAWzEww3MUOuqT DbWBQiBlIsZ9ozthdwXbZWMGOsj 5wtN5jjxMNDsTQyH0IiPWiccePf QMciANtxQoTxXKq7NU24IhBhQGB hcn19 COMMENT (test code b7winVTuFIHmwZWiICMfNZsyyeC = 3356) hGHGcbCXwJ8FnrekqWJzqFU9cLD 7zdFnhqQFwlGIeSHJwWkFee6dsq 037sBObm7wsJYYUytqgkPg4gPuw Q08mm4M2VwqoQ13uqAKaESW6LML nDWHmyRJjNSPpYMU8LMHvlFRaS9 ywVCLdBM5zayecYZelVHfsMCWwd MG9NKTkfRMdV5UpKGMlKJysAVCx jqq8TxIsFi3qzWKthOnaBMzvIQJ sQMXaMUizICYcGcOaQ2UmmJzxsw Hgw3XwxYssIDVal8P5MJPxCNalv cSyACNnxs4aWIVylL7xcBCbLySn rHMpzSS7YWFiXQNqr1DaHV0nBUa zhq8egdgtHmDnbLohbGUgENwejN QuaFHzMUAfxFT0e59mxj1sTAOvP XIvc93nirDtlPJut1D3aAMqiVHa pJ2iVOUoPGLnpdE2iDZngsdznMX pjB7egABfj6rjlMZhKRipnPJzmO WhDISngAE7m26aJNDrMBApfKUif hY8xTY3kiLqDRMynXEypyKfoOEm OUXzEW04MIPidDazZ9ouVFCljmM fQ67uSMZuPrUOzWEgu46rXSZmv1 LyBNGsVUD9DTxnQBVIjFBjo6xjg GL8UIy7FEGwREZ9DNVpSiE9eONr iGXcz6RhhEZzA72zoFYjn2PpEK2 uFRtpCPOyr25anQA4nDPzneS0Kt MxOPncQRX5vN0zWAjpMEKfgqRre dSqFFPiVHZfEHYtvt0cnAI2GZix bx8yFZl8yuDenh5vrLU8dZUsOPj 5NG0biT4jOBkqUZvzBP57rRMbRY WgIMQIBQCbbbN4zeHvXOdkmrDku Q5pEEwbNIonVY31vKNpTFHcBXP0 bJRaceYatW5hfY73UYKjlZpbnbA trtHfp8yuiiGhegNkMVUpdVcdhR MoYrXlAVnlVGU0rtjaP1GwDJ8br cupteLyWUUfqB8kjumgJfqsABUn maFmWRYsPTPyDLVsOY0rxfJvSOM pr8aixUHnQMSbUNK0qxmyrc4jvz UdAEI9TAJ2nV5yBktxSEK8 SYNOPTIC REPORT PROSTATE GLAND: Radical (test code = 5765) ProstatectomyPROSTATE GLAND: RADICAL PROSTATECTOMY - All S[employer]ydsox1av Edition - Protocol posted: 08/24/2021 SPECIMEN Procedure: Radical prostatectomy Prostate Size: Prostate Weight (Grams): 29.5 g Prostate Greatest Dimension (Centimeters): 4 cm Additional Prostate Dimension (Centimeters): 3.5 cm Additional Prostate Dimension (Centimeters): 3 cm TUMOR Histologic Type: Acinar adenocarcinoma Histologic Grade: Grade: Grade group 2 ([place] Score 3 + 4 = 7) Minor [...] 1, 8th Ed.) it is the managing physician s responsibility to establish the final pathologic stage based upon all pertinent information, including but potentially not limited to this pathology report. 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) Additional Findings: Nodular prostatic hyperplasia CPT Code(s) (test n7rgzTBqZNJgvJVwPRRnTTfeciK code = 3357) cMOHhnIRzR8TijbpoJNlbCP0tDS 6nqDjvfGVclOTuWJNsQyYss8zqb 922vFTov8ouYPSSmmrwnJw5sSjq S84be0O5OaobW24chJFeSHW3KCS hAOOjwNHzLBOaUZB9GAMfoOAeP8 jnTDNdYU3nkaslCNlkFTaaTWFmf IK0SFEyoAKdU5TnNTOlQTihLOFn vap5PtBvPp7neUDguIxrFAfmMHZ zVBGlMIxiGPZvSuWuWXksPIP9WX tsRGXuOPjcYBr8DofqFLSuMTggW MypsUNeUFx2TsIzGLYcnzU6RVF8 MVxwYXJ9 CLINICAL HISTORY w0nefSWuLAOwwEAmQSLtHScmkyS (test code = 3356) sJWFolPAhC0WcabfuWYzxNI8nMJ 7dhRvwlTVarVZpYAIzWbCar7tsp 352sNRdg3srRKBAldloeLm0yKqo U14mj1P8JtoiA8vpWWCeROauOVX wIReiyFBqPNv5PGTttYDiwaHiWi QiTTQokJLcmGE3LCVsRN1agxogU OnzKIfxAWUuznD1HOVnmKCwN7Eq GUVwHQ2cnidcIBW3PQmeUGYyHIG 4SxBkQBPbp0Pqhek0StLbxONjOT tvkEPmqYqpkW4aIuBgUVelGjBcU XHdc4CzkBRnY3XsF7EuNXPcsd0= GROSS DESCRIPTION p8utjVSsKJXcdMQXOVTzZVJbCQ8 (test code = azSsznPh2gOwcGNAqtcW1cVMmRD [id number]) uhb4rrVMY4s3hgxnLDFhgaBYEiH M7eOSehLTZcTO3qMwDtXJCbRqDe XHBhcGVydzEyMjQwXHBhcGVyaDE 2LRMqLJ9ivigeRIacQOpcKNBecy T7MJSqxCBtJ0XyKPKaHE7cybbhQ JM5UANGTpikSi6zvQPkhZrzUaSx ZmNoYXJzZXQwXGZuaWwgQXJpYWw 8kF3VPjxmY04gr5O7Peq9ZCBkGG DuX7GqON2rTRAhxPTgI80USpavN XR6AXALTgabNlmwgVexy0GlmATz XHNnIFxcaWQgNTEwMDAgXFxkYiB XLvQjUoD4IXT2VRznIsY7USq3TU DKNCPsEJW2FKbtHYR6IVc8UBZqT K9vJDflcPMtHBjbEdrrKWjxQ311 XDcrMKTxD7LiM8BpDTogSnEsFDg cHIGtJDJuYBjdDGWsX6SZROPkAY l1NbN1IkKeDSe1PAccQ2TTAQOrW XH4Hsy9XAL6IvF7WPi7LWNKQq5x SiH3CLU9Bso7NJT4RRKnKIlvcDR wLYogt6XdIpIrBOGxQMysfeV3EX PjpdLnDVgeeIalkX5zLeIjNsPWS lQOtB1ibZXRb8ZjFXFyzpHBCpwk JDTgOO7HGHUnZXdaDMOyZiTsdKJ bX1zfPGLeA25lg6SRo2AxLP8STL r9bnGurieqcX2sZCLuvwWlb5HxT FxlcGljWHNhMzAgDQpcZnMyMCBS JEJdqNBoGKFfwwTcj2YcRUlrpvO sYWJlbGVkIHdpdGggdGhlIHBhdG kefcJwddHyPY2rPPRtM5Yzu6Flw 09tmcZaWrUpXYAlYMToQR17ZOWr y2KmrRXewYQdm4Y4uKD9pTXvuNh ujRpeyt9jBDKipKSyPDSnFgKakD IjLlconOYmUtUcR82gdB9roHrfr fFaOoX0YL8awBSyrO55GDMczSDn e9GsiZO4PUCjzBBye0ZgmQruf4P eZHU3fIouaZErwhOjerCsiiHpqO VrgYZipEP5QIOydJ5qMZFpABPtL TabKQHdL63lo6IBf0Lbu6xahTuf a2MuuSMfRR6brBXsND2Ks5neKZJ qnZIyYXW6DVpon6kxCKgbMUV2PC LhSbJwRDRsMK5FGnByJNh6MPn9K OHgRUe0ZQs5ZQ5OKsTePMQiUGY5 FpdaWlOdSAw9WQkeHP3XXIzpEZZ 0XExkVEL6UPtyDIXrDDGnDwYbIF XlDVXkMCukiATsNR8ycWqiCUSzH MRwYNG8JNIbbRRQw7HzOOSxHMfy ZnMyMiBCLiBCbGFkZGVyXHBhciA OZeleIBYjKB3YDPChDPvgAWu4us GcQQLzClGoZBClP62au2CKv2RxB Y0UUHz2gpRotconvJ1eMQVzqjWt c3QzJAlbiDruOLRtIbAxp8OcBEv lcGljWHNhMzAgDQpcZnMyMCBSZW VvyUDvVMWpwxVem7HeTMvyvpGwM WJlbGVkIHdpdGggdGhlIHBhdGll naGcuhQbWW0gLMPvV4Eae7Hwj48 gbnVtYmVyIGFuZCAiYmxhZGRlci EpGXDyNL6vslkzuqFwsHLmSKRhR mbufBSxNmElcQMgEaZiT11fzAHo POZaUHX5FJCvmgVbFPAuCrWpsLh jq0XiHJhxjFNdPBcnOLU1Ub4skG ZxMOTmieC3y7NoRPkjKHAaLu4PT IHjcHJJRYQ7RN8sEBhfWHDkX1Wm L2RciaE2XYSifiEDVulnKjyvgDv nq9AvrBEfXQKjDPccvCTeVSSnKB MsUPpfPjGWYjIxYiK4DVQ6FSdzK vE8HJy4WKGFWoZbVoLwCyGhBLc3 QLKgBPh9JLs6TFwDIwC8LoG0HTD 5GeXmUHE9SaKsTXh5OHZhMBzsnj QaPVnsFixaOYgzA41vjQWxDMksY dRdDUuvgMgfXGEuPFI6HI0RZCPo WrSlHh9hI74tlVQLaVSirKSzKX1 1lXGeHARxjcCUHwkcDTVrTY9GEV HoMXgmNYs1zjFyWEXzGqWuHYOdA 10xb3UXq2GtIY0EKHn2mhRurlxy bT1cGTUfyqZdv4QoQWqgvOpyEKA lXfIlc0TcPMtqoLfaRNCmNiLiLS pcZnMyMCBSZWNlaXZlZCBpbiBmb 3JtYWxpbiBsYWJlbGVkIHdpdGgg jPhsVCCgjEtxrpKbclHaDP4wRSY oA8Chb7Zfi27odaZgZlTeQCSkWJ UiGSHuE7CoOIMytSCfcK1gQI1pc mdpbiIgaXMgYSAxLjIgeCAxLjAg nYTkLnAyJ89qiBSoEYOtYVV5DNB obdLgFEUzYgFcrBicg8SdSUQ1yK voeBDjxzIykpsmTLKecEZpKUZ3w zyfWZP1JTSaPR0rAZQwrNvfNJd0 UGS5Yv6thTCcOQBgkyRZYC8VLcm krQwiXePxzWKjRrP5UITpwBZqFL F3EW9osPjqDWRqYHd5ZQnqIHAaU 7GsE8WcBFjhQjBiWAudNWPjSYJs OPayBFReD6FVVRPbOUt7ErC6RtO mITo2VQaxD0KYXSUmHDG6Mys7Gl P3XvW0PNd6CSGMBx8wJzS1VRK5N MA4SNI0ZYUgHQqfoGHyZTeqr3Wc NzOhPORtBSssqbN8IATxpfWap8C nUYEuPKOqJ9sbSyMaDEYVSffkvp FvBINeYBYzIAAnBEHvpCYzVT6PU DUgviNlPDxgnFxoxX7xaHAoQ3ry ZnMyMlxlcGljTmVzdERvYzEgDQp cbHRycGFyXGxpbjBccmluMFxzYj SnKVMwyXOPd4TfQHavYCHrQVRyg WNZo1OtZKPPDufobdPlPQXoE3Du jbKsOYnzFEPzck1suIgfMPghUzA cPFJmh6f7qLK8lNCdoBL0mNBcpK opJT6hgEBzEVJaN9Ytr0wxrzPrk Q4iZKHhRH8wKXMoixPbjllvqzPa eDDzIIBxOZ4fD4wvnJUxM1jyLoK wbmVgWvU6LM8iMVZuyVKppmd3ZG Xjm21qoOS2rQKriTAoFeSaO06dx nRzIHJhbmdpbmcgZnJvbSAwLjQt AC44SOZaZKvhZDifWWQ0PHH0ZHL fnESxz7maehA1tSenxOQsueIyy9 HdlWy5pZIbZIrxQLZteS9rhN5qB ZYtBLsgPVScA75nu1EHc6Nqz1cq uKkmm9AkuVBaSQ1ptIHjHP4Pg6w rWYTegNVzJNZ8VYmou8jtUHtrKZ G6MKZzPnUnXGScZD4LAlHrYDr9B Ff5MHSbGTz5ZLb5LI7VQtHaWAOm YWU1PXs1RuZpHIx4MDsoTJ6LJMy aMUS9DiWmHBB5LGmxYXZnDAMgNk ExQTKtWGVxWXlxtWCwNL8uvAbcT WQnTWVfNEU2HANtsAOEe3NfMTYm EPfnEsUmAhCADxHIaJ8mmFHUl2B dZDXwhpZZTopnSXQfKU6DDTJfUF xtPMp5ybFaXEWoAgEvTLHqC57zg 8RIi8PpQG4QJSw5raChqzhpnT0v JEYgjdQdm5HrWIghbFtqMDJqVvG gDQpcZnMyMCBSZWNlaXZlZCBpbi Fai2ScSIegnwGwRIPnjLEnOEQwO FZiBWMaRE79K0MsusRxXTquSXIu JYWulI2jFZ90rHQiuzQemmWqRrO nP2u9CPRenSFiOpNsqQ1yoSLcx9 KqztJcbIIrDDF4AnHywXN8WfKvf OUrYexvO85cOOffxrCcZAZpZC8p UTRjic69EZdwc6hyKUMeGsVuPgW 6yCsiSVEtyS8bMUN9bPRsfEYkOT FJYCQ7nS8tlG6fGMLkbrAxeJWnB bTho2VyqMStOML3UI6ynLvynWvy pd8aUPIdcxNyN7rsLzIype3pMAG cFn23GzMtL78rtX8jF3HqGNGjs6 TzFLknRX5qvF1aJsGqXSavVAOoT UUyjLVdBIadIDBcsOqxVQv7RIQ8 Hn5elNOfEZEpriUio4gei5stJau wWKFrHAlqc5JtDTJjrDDOn8IyTZ 2LNFAxfhFBNlRsU5Hhh91cB41rV EvnYSLgPIlNLZvjSCTmd8CdjVMy RATkkN9gtWXrx9JiFYNyxTHzD7C tXHzjNZPsUFaEAdbjJAPip5RckT XpCCKubM4ezBTia8JmVHS7xndiW GW8AATufFCsIT4MYOFeGRC2NUHa aEunhOeyhr0nXFspdVHrEDXvl8X jdGVkXHBhciANClxzYTMwXGVwaW MHz9RaHUUJDdQ4VVWdMYirOaFzS GiuMPUgGW2bGDLfSdNssYayf1Vc TPhcQVFpZ24eb2TPy5Kzf1pjgHy lx2UscQWoYZ7vvVHiKK6Hj7iwNP RgtUOiQXO7IYfdj8uhPUelAXB6P AZtMzMsMZRcIZ2QDuFgFVd0GEy7 QJGySFj4IXt0ZT5BMuFcLKCrMZH 6SCt9AMTlCBn3QVavZF8IJIqvFK U2YqOmDbG8CNvtZHXdLTJvSwDuN JAcGLMeKWdrjOLsDR7yjDwfRMZf TFKqSQU5CKTfdOSQr4OySESgCBe cJiCaNpRUCsEJfY3tcWKGd2OhKQ RrldTFKrspUDJhKP5JVZUiHRtjD Px2zuEqYQRrGiPxQIGxP85nc2NP t4DxCO9QOJz5udWlwoohgX1yUGJ jepYlg4GkZRgmrHtzMLKxWwWtTL pcZnMyMCBSZWNlaXZlZCBpbiBmb 3JtYWxpbiBsYWJlbGVkIHdpdGgg iTtdNCVxzBkojeJkmeNaKL5jMAA zMGCfiN8dOJ31oLEbplDilwNqSl tkGmSeiWIxqkejEGw2mBBwXB4dL YGjSkEdesKhXDHqNWE7UCNpFFY4 VHRwZSOkuKTrZ7iiIDqzaFKgh3B gzZEcPZvgsGrfkksqSizxxz7dXK N7mZVsOCxbv9KlBVMwa9F3WU1nO KVmY9Evk88twyimhjU6KWPnbsSm WEOoRyR0CUGqYJO6APTrJRKtyAU 1BB8asTywlNnizq9lDU6bUKWyPP XnlYBboW2owdGppkEkzkEyroFqz BHbqJRyzSD1WYNkWEFnDh1ayH87 qxnuzOWvRJ8LKKGtZDfraGoaCXC sTBOIFwwjGKAkMUqCNCH6lX4pDS BoNJFrqENuPR2IUvWeFmT9RGRve SlgyJazku8eVEvhsPLzBZSsb2So dGVkXHBhciANClxzYTMwXGVwaWN Md9YoKNQNVhGhDRE8HsORCR4rjK 3iRZKvl7Pfy02twOX6nEOmzKUQV dgtmSutWvVezMFjFaG8XOLrgEQc TLP0ZV5noZkuXPAfWNq4SLgeRHP sE5XgW8GwMFtwYpSdTLeqAAIrAB GjPUbeHKBuI2VHUFUqXKd2HaL6H rOlWFt7SKdyE6FWKEEyKTU8Gtw0 BRInAwT2NNq0CJVHDp2fKvS3HPO 2ZEglVBX1YNEhVIxejMGaIXugd9 DjOzQfAEUzCQiaipB3UZBashXpk 6GsZRVmLALsX3gjPoSnPCPFGkep goUjRCrvLJCxv5D0IMOiJSDtdoT VHjegBXFcQJ6DDKCoRRcbPVy0sp QrKRMvDbJoJNQkQ13za6SGe3NvP O1TBDk6asAzmdtkfW4uYKWqopYl t8lfF0PweKMtSDAtEyNvHHHwM7y zTdXeWB6GSMPcQZlmxuRaJLDgI8 VpdmVkIGZyZXNoIGxhYmVsZWQgd 2f8oZE4kRPknQO6rSSyeZdxVqQi LA5dtUCwZW3cYElkUKorioTsd2B aOO88ePEhhdEmaiXqGlBhs9O3BZ WdTdInfkJmNVE6WnRoKoDlFMPaR 3KgHMDrt7U3CLKoZ6BfuKrhlWQc u6YyvL7oNVZkUPKfhCWumNA2ZRJ zIKXiv2CfXMTtQOFbkVV4buOil8 LrgiStiPskSCNkYUVrXpWoX89aG M23GRDdf9TixN7epW4glPMpbU3g Llx+IFRoZSByaWdodCBhbmQgbGV qmVBrWP8hveUoASTxu1eypWYlZS 3iHJF7fxIyMD6cPWheKO12DVzoN M18PVYvLPEqHYB1KfQazXVhIrJo zNTiFtSiU74xIPAgy2ZwI4ZnalT qwM3ipfIDvUWhtfsoeGHqBC8fUF viVxRwclHgDASbViVkQH1fCX0uA HX3yvGmNM9pURXlXFJwPQInBaHf H50teY6jaAEaQ9NgBWGmv3OlQ7Y gyfCgaIkaJUIimFQyRbCqG12gcY 1eQSvelQW7SFBjBVRjzmPWYqynS xCcFDXhA4blVwJjNCaIeDJio3Y0 AQHgl0HbViVrZRWaJsD6zWGraFK go9SckMXbsUAyiBRygSswDNUwfj P0orKzLVOpRZG5v6m1MGOlEINwk 5SzsOx5UHUyV9giYA0zNDwwONHy m3E8PPBhMAlaDCRbpqotrHz3XNP kQ9Sfj50dNKIjcd4eGBDfUGkzlC 8mUnIoNXAkhiCwnXEiAB52wHDxc UzvYK0jKLnjJWRnuDAbOU55eBDd qqExIbOzsJphFHFkuUNuLF0sB6Y keFitiaAxfcJ7BOJiSJLbmXqivy 23VU2dyZ5dJ1DrbH14vRo2ZFjqo J1tj1pcqp41qoypMd3zZOlwbIHt a2F9oUXpHTVnv6X7ZTNwAvRuMYU ltoCbfM4hFXTnwn80O2fkmUVyYW 2hPt6eFVjdP7OpmLCauGOdj9UkX GFyZSBpZGVudGlmaWVkLlx+IFNl W2Vhv95sirvgc2RulRupKIBwsOf hHSbpfpNydCYiJMUwvbV8JBMgFX CogHconh13VU9eIYXefdJlRLZqP RLtYLAwiJBnn9FoVgJtJR8kDCto SUGkg7X6GDAhMWUnNXFlFN5gpyI lIGQkw0nwrBTdKFXmRKMpxcLity BexSVzlSYihJC2UGLzFQLxkcACS qsjUYDlNFgMbhksE40jDRzftVQk ON1NQsy0IQqnZQElcMnmJVKoVZx YtYOkolxrJsvpoSJohBGjPQ5GHN RxnjQJKaXzL2Nia04jF90fFIzwd QPgQA6UJbBjiEbbCWZwARx6Xzl7 ZrTKzRzxbKWvAI5mvsImSLRxd4r zcPSjmQBpLT2MWhpcuQpcYRGoGZ u7GbyjAnxtMYHdaWQiZN4gmoJxH WNtj3oitEKwqAAjYR5HEyVhZxAG cTlbvBSfayMyqYXdiWP6HFObJCC lIJAuibBxaLNrR5uqVDPgbiXiTJ AfRIHptdTQZrgzYOt2ZRBjYIYwR po3VqV6FaMRsDphtPOphGW9VH3b cmdpbiwgcGVycGVuZGljdWxhciB eXCA0kB0mn1owPXHnZYfXISytaX scUDOeLAn1JqzwAOcoAAJgmLPtp RF0DT1nkrqwbuxwfCMvjCNjTAen lMnmlwVfFJY9pJ0bm8dkSGJcRBh RJfZdzPppXDHqXMf4KhsaSkigOa savVUxCgnxULKzuaIbMBFpEP3ua mdpbiwgcGVycGVuZGljdWxhciBz NXT5hS1vg4pjDIJgIDeBYUTfVKE 2UsUnBFvoHDCLUlM4NAadWwLwGy jaXXUjwhNtBSBiJT2vyzwjrnqrx ATysMRhCMdblZafdwRhTIA2zZ6q j1krNFZdEHuTOsL9EAHgb5D5VAK lLCBzbGljZSAxXHBhciANCkcyNz piSSZbk3ZdcNXjEOEfxUBwZHKnu ZXdJB6YDeZ2HtSEij7cjEF4WPtj z3izI5ZjO0btMOCiLNmBTuf1KXR kz1F9FSMyYVGylIisMHW3NXZvez QNZkvul9dcQYJ5tVKftmVJAppkY eYrVrUpXhyqTCTaWQfdq0MoUEur dXklMPCsLcHzLBnIGh6NORFysAQ GLGF2RA4xXDkzQVKnV5LsG5Ydwz Q0r6gsuNtlu3QrtBWjGH1gwYIrH S5YLZIrwrUjJJp2 MICROSCOPIC w1dsjNRgGNCawNJhWOIoXLphnzC DESCRIPTION (test oFVYwdZDfS9TomphiCNfjEZ5gII code = 3371) 6lsTnusIWsiYHkZGHfZlEes2lrp 828iXNdu1shELUNegffoJo0fVub E24fd7A0VnukX59hgWRyMXS7ODG qWNNjaWIhUVLfGFL7VMQidWWwI7 skMAZrYA1dcsxmIWtkUYllMXGti VB6KDFluLDgK8AeFQPpJSbpGAKa rnw3ZyYsOq1yrQEtrEtiUNhvORL zTWLuHVqjBUOvSdGqYR9NYfFFWP Wxj8ZiTQOqXJVfkldlPYQ4 SPECIAL STUDIES y9ldaJQjRLJjyNEtODZkSSguvcH (test code = 3376) tIANrdWVjO0NcbjcdAYhjER7wFC 0jdGqjxJVtgCEfMZQnQkKya1cmm 087tXJrg6owJSTTdpoerNj7h0ir SBWTNGxvZsVbN894u1xry7whwiK mcKX2QNSkXZEgK0ZfGV7uSYFtdM HxH05dhLHdJSZ4VWVxKBIqgYMyJ XLkRUU7XDLzkLPaE6rtFDFxBP2l obtoZAsmWAlcRFMhtCY1RZTvzQX uD5VuWLTuBRppUJVprxp4CkUoVw 9vdGVyeTcyMFxwYXJkXHBsYWluX GBcXSLoEkWkE8OkHMz9VNPtnhAQ ZXAMWdVtCN7WX9WYMJIRZWZpmgA ZLfLsOdFvXO3PD2JZSIIGDVFown hdNUIwOKilRYjxeWEoeBMfmBL8s E2nMP6mZESbbYSgM9BbURRgrmHs aJRrOMF0pWHbfUTdOD7eHDgdrTW lw2iko6BnJ8menLxmdHJ9SA7rDQ ExDDGnOFdmo2TgpP7nMtmmDJCcr PCgXOUmajSje5noB3blTATqBVC5 FF4zhqUqBnZmMA2pjU66n2Azz11 mo10tlO5rvZOsqtDaB80usAPceT Nbc5EjBEYedtNrxCV2XDBuFNnox wmbi5t3bSS9dKAvtNVkqSX3aENo eXVzUXENuVFhAXMed966pk2iPMQ waPXfkjYxsB0eJRixuicabKMbXG 4cWRAfEOPwNSUiLZ88kgVzNV0ny RFbn0evflFwaBIsz0PyoGX5UWVm vUShlwzhZg5bUF03QNPgFClfzJ6 neIDowlZfXM0lTC2gG2X2lYYqNQ XwceExw7onUUzfIT6oFQYlhSfsA odqFMSpKIUdijBksSN9IEPxfBSs PTZqlZSaRXdnmKXer6cjo4HxZ6i gxEeqxNU7KNFaY7lhdTDfrKF2UQ J2cO1aXZhlhsZuQYJft5MnPIDiW CXbFhW2dP3fBOO4JcRXgFvsKLD1 UqG2LBpoLATuUP6kYFiyGCgnW4Q cyCQqIDZKVEYjp1dwN9jpCVClc8 NcxY7uhDY8cYMaOTKqcUK7ZKQqT XZ8RRgonKXuWIQkKMDgzSGgtPGr Ll8uyWHzG3ShM2msriStkAZxjTT 7pXKgHEzlceCoREU8GRNlcQ5nYU 5oFFJksGFwOK6xfOXwSJMmUCWtD URzUCCxs4IaGPKtuy84CZQtSdbk uAwbRWBjAo7hVx3aAPTgxmDfZSC 0VyAKDO0gufpadVMhdIcetc9sYH cdZMQGLBDrCZVoNBZ1HGDxiU1aC HD5cVS7PLQ9Q0yxU4weKGYsyrEi HW8tMDZiyDMhvnDnWLwhCC8dqKS oEMQkq1CfanwtFKDbFRO9NPK5BE rjBLRjYDNzDu1pTKAejE4nV5JxX TV7ysYoo6WuSzDFsCWzxE45yINx yz52GGOxUCFhS2OoGZEbNEOmMMh memQjrCilSKAyr18xtOQmnsFiu7 KpnhBnBMXfJ0ffHNDwaUBlsUMeg 8WhvX5fdBXgilAnUQY4vCWeHZVg bZ3fNCTkpUzfAEQygM5xZ2WqMGj pNm4zKWNpgfsmKI1hua28EJ8hoo WlIQ5odvWlIS15bhPsUbGrPAz1R EiNCOcESVu8XRGeyeXnfGRytWGx DYVtbS2brGNzOm3doXWtzRioKMS miBFbWSqteAszD9wytrjkZSxmhI Sls7YbtY0yzPW1TJD4hX7bCchwA XJ9 Gross assessment [facility] was performed at [place], Department of (test code = 2777) Pathology, [address] [place] [address], Technical component [facility] was performed at [place], Department of (test code = 2778) Pathology, [address] [place] [address], Professional [facility] component was [place], Department of performed at (test Pathology, [address] [place] [address] code = 2779) [place] [address], [facility] HospitalTISS[facility] [id number] 19:53:03Surgical Pathology Report Case: [id number] Authorizing Provider: Rita Hubbard MD Collected: 02/26/2023 05:16 PM Ordering Location: [facility] Received: 02/27/2023 08:45 AM SERVICES Pathologist: [...] IDENTIFIEDB. URINARY BLADDER NECK MARGIN, EXCISION -NEGATIVE FOR MALIGNANCY C. PROSTATE, ANTERIOR APICAL MARGIN, EXCISION -NEGATIVE [...] PROSTATECTOMY:- NO PATHOLOGIC DIAGNOSIS Signing Pathologist Direct Phone Line: [phone] signed by Oralia Coffman MD on 03/23/2023 at 7:52 PMSections of the prostate have adenocarcinoma from apex to base and involving bilateral peripheral zones. The dominantnodule is located in the right posterolateral peripheral zone, measures up to 24 mm and has an overall Greenview score of Greenview score 3+4 = 7. Approximately 10-15% of the tumor is comprised of Alexander pattern 4. The tumor is confined to the prostate, no extraprostatic extension is identified. Perineural invasion is identified, but no lymphovascular invasion is identified. The surgical margins, urinary bladder neck and seminal vesicles are uninvolved by tumor.PROSTATE GLAND: Radical ProstatectomyPROSTATE GLAND: RADICAL PROSTATECTOMY - All Ntkroebhs1gy Edition - Protocol posted: 1SPECIMEN Procedure: Radical prostatectomy Prostate Size: Prostate Weight (Grams): 29.5 g Prostate Greatest Dimension (Centimeters): 4 cm Additional Prostate Dimension (Centimeters): 3.5 cm Additional Prostate Dimension (Centimeters): 3 cmTUMOR Histologic Type: Acinar adenocarcinoma Histologic Grade: Grade: Grade group 2 (Alexander Score 3 + 4 = 7) Minor Tertiary Pattern 5 (less than 5%): Not applicable Percentage of Pattern 4: 11 - 20% Intraductal Carcinoma (IDC): Not identified Cribriform Glands: Not identified T reatment Effect: No known presurgical therapy TUMOR QUANTITATION: [...] FINDINGS Additional Findings: High-grade prostatic intraepithelial neoplasia (PIN)Additional Findings: Nodular prostatic hyperplasia [id number] cancerA. Lymph NodeReceived in formalin labeled with the patient's name, accession number and "anterior periprosthetic lymph node" is a 3.2 x 2.9 x 0.3 cm portion of gonzalez-yellow, fibrofatty adipose tissue, which isentirely submitted in A1-A3.B. BladderReceived in formalin labeled with the patient's name, accession number and "bladder neck margin" is a 0.7 [...] are submitted in toto in D1.E. Lymph Node Received in formalin labeled the patient's name, accession number and "right pelvic lymph nodes" is a 6.5 x 4.0 x 0.7 cm aggregate of gonzalez-yellow, fibrofatty adipose tissue. Sectioning reveals 3 possible gonzalez lymph nodes ranging from 1.2- 4.2 cm in greatest dimension. The specimen is entirely submitted as follows:Section codeE1: 1 possible lymph node, bisectedE2: 1 possible lymph node, trisectedE3-E5: 1lymph node, quadrisectedE6-E10: Remainder of soft tissueF. Lymph NodeReceived in formalin labeled with the patient's name, session number and "left pelvic lymph nodes" is a 5.0 x 3.0 x 0.5 cm aggregateof gonzalez- yellow, fibrofatty adipose tissue. Sectioning reveals a 3.3 x 1.0 x 0.4 cm gonzalez lymph node. The specimen is entirely submitted as follows:Section codeF1-F2: 1 [...] identified. Sectioning of the seminal vesicles reveal apink-gonzalez, unremarkable cut surface. The prostate and seminal vesicles are entirely submitted.Ink code:Blue: LeftBlack: RightSection code:G1-G6: Right seminal vesicleG7-G12: Left seminal eiypffkA18: Right and left vas deferens margin, en qfhgG33-X26: Right apex margin, perpendicular bgfgkbzeW71-R37: Left apex margin, perpendicular zrkthhttW99-R36: Right bladder base margin, perpendicular sectionsG 23-G25: Left bladder base margin, perpendicular hjahoaniQ91: Prostate, slice 1G27: Prostate, slice 2G28:Prostate, slice 3G29: Prostate, slice 4JCA-G. Performed.[id number] - NEGATIVECK5/6 - NEGATIVEThe interpretation of this case included the use of immunohistochemistry or special stains.Control Slides Examin ed: In-house known positive controls were evaluated along with the test tissue. These control slides run alongside of the patients sample show appropriate staining. Internal positive and negative controls when available are evaluated Immunohistochemistry technical testing was performed at [facility], Pathology Laboratory where it was developed and its performance characteristics were determined. It has not been cleared or approved by the U.S. Food and Drug Administration. The FDA has determined that such clearance or approval is not necessary. The test is used for clinical purposes. It should not be regarded as investigational or for research. This laboratory is certified und er the Clinical Laboratory Improvement Amendments of 1988 (CLIA-88) as qualified to perform high complexity clinical laboratory testing.[facility], Department of Pathology, [address] [place] [address], [place] [address], [facility], [address] [place] [address], [facility], [facility] of [facility], [address] [place] [address], WLDZP METABOLIC [id number] 06:08:08 Test Item Value Reference Range Interpretation [...] not as accur ate as Creatinine Shea chloe in predicting glom erular filtration rate . Estimated GFR is not appl icable for dialysis patien ts [employer] ID - GE WCBC (HEMOGRAM ONLY)2023-02-27 05:14:10 [...] (BEAKER) (test code = 413) BASIC METABOLIC [id number] 21:50:39 Test Item Value Reference Range Interpretation [...] G3b Moderately to s everely 30-44 G4 Sever ly decreased 15-29 G5 Kidney failure <15Repo rted eGFR is based on the CKD-EPI 2020 equation t hat does not use a race coefficientEsti mated GFR is not as accur ate as Creatinine Shea chloe in predicting glom erular filtration rate . Estimated GFR is not appl icable for dialysis patien ts [employer] ID - BSSpecimen slightly ictericCBC (HEMOGRAM ONLY)2023-02-26 [...] (BEAKER) (test code = 413) Blood gas, [id number] 16:58:47 Test Item Value Reference Range Interpretation Comments pH, Arterial (test code 7.40 7.35-7.45 = 2744-1) pCO2, Arterial (test 37 See_Comment [Autom ated code = 2018-) message] The system which generated this result [...] 21.0 Lab Interpretation Abnormal (test code = 76235-6) [facility], [id number] 16:58:47 Test Item Value Reference Range Interpretation Comments pH, Arterial (test code 7.40 7.35-7.45 = 2744-1) pCO2, Arterial (test 37 See_Comment [Autom ated code = 2019-) message] The system which generated this result [...] 21.0 Lab Interpretation Abnormal (test code = 96622-5) [facility], [id number] 16:58:47 Test Item Value Reference Range Interpretation [...] (BEAKER) (test code = 1819) 21.0 CALCIUM, [id number] 16:58:46 Test Item Value Reference Range Interpretation Comments CALCIUM IONIZED (BEAKER) (test 1.06 mmol/L 1.12-1.27 L code = 698) PH, BLOOD (BEAKER) (test code = 7.40 1810) HGB/HCT (H&H)-Stat [id number] 16:58:27 Test Item Value Reference Range Interpretation Comments Hemoglobin (test code = 14.8 See_Comment [Au tomated message] 268-7) The system [employer] generated this result transmitted ref erence range: 13.0 - 1 6.8 GM/DL. The refe rence range was not u sed to interpret this result as normal/abnor mal. Hematocrit (test code = 44.0 % 40.0-50.0 4544-3) Lab Interpretation (test Normal code = 53564-4) [facility]Stat 16:58:27 Test Item Value Reference Range Interpretation Comments Hemoglobin (test code = 14.8 See_Comment [Au tomated message] 098-7) The system [employer] generated this result transmitted ref erence range: 13.0 - 1 6.8 GM/DL. The refe rence range was not u sed to interpret this result as normal/abnor mal. Hematocrit (test code = 44.0 % 40.0-50.0 4544-3) Lab Interpretation (test Normal code = 67444-3) [facility] - STAT [id number] 16:58:27 Test Item Value Reference Range Interpretation Comments HEMOGLOBIN (BEAKER) (test code = 14.8 GM/DL 13.0-16.8 410) HEMATOCRIT (BEAKER) (test code = 44.0 % 40.0-50.0 411) Glucose-Stat [id number] 16:58:22 Test Item Value Reference Range Interpretation Comments Glucose (test code = 2345-7) 102 mg/dL 70-110 Lab Interpretation (test code = Normal 88617-6) [facility] [id number] 16:58:22 Test Item Value Reference Range Interpretation Comments Sodium (test code = 2951-2) 138 meq/L 136-145 Lab Interpretation (test code = Normal 91980-4) [facility] [id number] 16:58:22 Test Item Value Reference Range Interpretation Comments Potassium (test code = 2823-3) 3.5 meq/L 3.6-5.5 L Lab Interpretation (test code = Abnormal 06549-6) [facility] [id number] 16:58:22 Test Item Value Reference Range Interpretation Comments Glucose (test code = 2345-7) 102 mg/dL 70-110 Lab Interpretation (test code = Normal 84255-5) [facility] [id number] 16:58:22 Test Item Value Reference Range Interpretation Comments Sodium (test code = 2951-2) 138 meq/L 136-145 Lab Interpretation (test code = Normal 15396-0) [facility] [id number] 16:58:22 Test Item Value Reference Range Interpretation Comments Potassium (test code = 2823-3) 3.5 meq/L 3.6-5.5 L Lab Interpretation (test code = Abnormal 68643-4) [facility] [id number] 16:58:22 Test Item Value Reference Range Interpretation Comments GLUCOSE RANDOM (BEAKER) (test code 102 mg/dL 70-110 = 652) SODIUM NA-STAT [id number] 16:58:22 Test Item Value Reference Range Interpretation Comments SODIUM (BEAKER) (test code = 381) 138 meq/L 136-145 POTASSIUM-STAT [id number] 16:58:22 Test Item Value Reference Range Interpretation Comments POTASSIUM (BEAKER) (test code = 3.5 meq/L 3.6-5.5 L 379) Notes Date/Time Note Provider Source 2023-02-27 02:37:29 [id number]:37:[address] [facility]/PROCEDURE REPORTYOLANDA WHITTAKERITY: Justyna #: [id number] Room: [address] [place] [address] #: [id number] : 1970DATE OF PROCEDURE: 02/26/2023SURGEON: GUERITA KangREOPERATIVE DIAGNOSIS: Grade group 2 favorable intermediaterisk adenocarcinoma of the prostate.POSTOPERATIVE DIAGNOSIS: Grade group 2 favorable intermediaterisk adenocarcinoma of the prostate.PRINCIPAL PROCEDURES:1. Robot-assisted laparoscopic radical prostatectomy.2. Bilateral pelvic lymphadenectomy.INDICATIONS FOR PROCEDURE: Mr. Whittaker presented to the[facility]rology Clinic with an elevated PSA of 5 and underwent a biopsyof the prostate revealing multiple cores, 5 in number, ofGleason 4 + 5 adenocarcinoma of the prostate. Since thedisease was found bilaterally at the right and left apices aswell as the mid gland regions of the prostate and he wasclinical stage T2a at the right base, he was counselled, givenhis youth, about the potential for active surveillance, but therisks associated with a large volume of favorable intermediaterisk disease. As a result, after consideration he elected toproceed with treatment of his prostate cancer and agreed to thesurgical approach.DESCRIPTION OF PROCEDURE: The patient was consented in thepreoperative holding area before being transferred to theoperative suite, where general anesthesia was induced. An OGtube was placed for gastric decompression. Pneumoboots wereprovided for DVT prophylaxis. Ancef was given forantimicrobial prophylaxis. He was placed supine on theoperative table and his abdomen was shaved, prepped withChloraPrep after he had been secured to the tableappropriately, and then he was draped in standard fashion. [id number]-[id number] urethral Sanchez catheter was placed into his bladderwith ease and his bladder was decompressed of urine. The casewas begun identifying a midline incision supraumbilical for theHasson approach to placing a balloon trocar. Once the trocarwas successfully placed after the fascia was entered and theperitoneum entered manually, we then surveyed the internalcomponents of the abdomen after insufflating his abdomen to 15mmHg pressure using carbon dioxide. There were no significantintraabdominal adhesions and so the robotic trocars were placedusing a standard 4-arm approach 15 cm from the pubic symphysiswith a 12 mm program assistant port in the left lower quadrant and a 5mm program assistant port in the left upper quadrant. The case wasbegun by identifying the peritoneal reflection at the inferiorvesical gutter where interestingly there were noted to beseveral bayron leftover from his prior abdominal surgery,which I believe was an appendectomy. The peritoneum was thendivided over the putative region of the seminal vesicles andthe very enlarged and dilated seminal vesicles were immediatelyencountered. I dissected the vasa and the seminal vesiclesuntil the tips of the seminal vesicles and their vascularpedicles were identified. Metal clips were applied to ligatethose pedicles and the seminal vesicles were freed. This wasdone bilaterally, and the vasa were divided bilaterally. Neel used the 4th arm to elevate the seminal vesicles and thevasa in the midline beneath the bladder and then furtherdivided the peritoneal reflection to enter the Denonvilliersspace. Leaving all layers of Denonvilliers fascia on theposterior surface of the prostate, the rectum was released offthe posterior surface of the prostate as far as we could get itto the apex. Surgicel was then placed into the fossa to markthe site and the seminal vesicles were released. We thenturned our attention to the bladder neck and the medialumbilical ligaments were divided bilaterally after dividing theperitoneum lateral to them. We then divided across the medianumbilical ligament and released the bladder. We continued thedissection releasing the bladder off the anterior abdominalwall until the pubic symphysis was identified and the space ofRetzius was entered. Once the bladder was completely released,all fat and fascia were removed off the anterior surface of theprostate and sent for pathologic analysis as anteriorperiprostatic fat lymph nodes. We then identified theneurovascular bundles and performed grade 4/5 high anteriorrelease bilaterally taking this to the apex. Once thepuboprostatic ligaments were divided and a very broad dorsalvenous complex was identified, I utilized a 0 Vicryl on a [id number] to ligate the dorsal venous complex superficially. Jason turned our attention to the bladder neck which was dividedanteriorly and taken down until the catheter was visualized.Once we were through the what we thought was the bladder neckwe identified the Surgicel that had previously been placed, butwe were unable to identify the seminal vesicles and vasa.Since they were still attached posteriorly, the thought wasperhaps we came through the posterior zone of the prostateinappropriately; however, we never encountered any prostatetissue. As a result, I reassessed the area and dissected theprostate directly off the bladder neck by using a fourth arm topull the prostate distally and identifying the bladder neckfibers versus the prostate and sharply dividing them usingscissors and electrocautery. I was able to identify a normalposterior zone of the prostate and released this off thebladder neck successfully after sometime was spent performingthe dissection. I then identified the vascular pedicles whichwere ligated using Weck clips bilaterally and the neurovascularbundles were successfully release off the posterolateralsurface of the prostate and a grade 4/5 dissection on the leftand a grade 3/5 dissection on the right. This was takensuccessfully to the apex of the prostate and the prostate wasquickly freed. I surveyed the prostate and despite ourconfusion with the bladder neck dissection, the prostate was infact intact without any capsular incisions observed at the apexof the prostate and the bladder neck region of the prostatesimilarly was adequately intact. As a result, the prostate andseminal vesicles were delivered into an EndoCatch bag which waselevated into the upper abdomen, and then I turned my attentionto the reconstruction. I first performed a Simon stitch byidentifying the cut edge of the Denonvilliers and suturing itto the posterior rhabdosphincter that had been cut releasingthe apical portion of the prostate. Once this successfullydelivered the bladder down the urethra, a runningurethrovesical anastomosis was then performed usinginterlocking V-Loc sutures. Once this was successfullyperformed and no leaks were identified, I then turned myattention to the right pelvic lymph nodes and identified theexternal iliac veins and divided the fat and fascia overlyingit taking it down beneath the vein to the pelvic sidewall andthen all the way down beneath the pubis and visualizing theobturator nerve and vessels. All the miguel tissue was thenseparated from the obturator vessels and we used a Weck clip toligate the miguel packet at the level of the node of Luz.This was then divided using electrocautery and released andthen the proximal component was similarly released usingelectrocautery where necessary. We then turned our attentionto the left pelvic sidewall and similarly identified theexternal iliac vein on the left, dividing the fat and fasciaoverlying it and taking it down to the pelvic sidewall,identifying the obturator nerves and vessels on that side andreleasing all of the miguel tissue from beneath the obturatornerve and taking it to the level of the node of the Dennehotso.This side was bipolar fulgurated extensively and then dividedand released to free up the miguel packet. The proximalcomponent of the miguel packet was similarly released usingelectrocautery and we ensured that all miguel tissue was removedfrom around the obturator vessels and beneath them to thejunction of the endopelvic fascia. Once the lymph nodes havebeen removed bilaterally, they were sent as left and rightpelvic lymph nodes for pathologic analysis permanent. Of note,prior to performing the urethrovesical anastomosis, I didexcise an additional piece of anterior apical tissue to ensurethe anterior zone of the prostate where the dissection wasconfusion was indeed adequately resected for oncologic margins. This was sent as anterior urethral margin beyond the apex ofthe prostate that was released. I similarly took an additionalmargin posteriorly at the bladder and then one anteriorly atthe bladder neck to ensure the prostate anteriorly had beenadequately resected for good oncologic margins. We irrigatedthe bladder with at least 100 mL of saline to ensure there wasno leak, and once confirmed, we removed all robotic instrumentsunder direct vision after we placed a 19-[place] drain.Favian-Caitlyn closure using 0 Vicryl was performed of the 12mm trocar site, and all of the trocars were removed underdirect vision. We then extended the camera port incisionslightly in order to remove the prostate and seminal vesicleswithin the EndoCatch bag. Once this was performed, we thenutilized Grant clamps and 0 PDS suture in an rphubxfacvlnvgoft-xv-xlwjh fashion to close the extraction site. Onceadequately closed, we then copiously irrigated each of theincision sites before closing the skin with 4-0 Monocryl andsealing it with Dermabond. Fluorescein was then given 2 mL of 1mg/mL solution to ensure continuity of this lower urinary tractgiven the confusion associated with the bladder neckdissection, and we did indeed see Fluorescein emanatingcatheter associated with reasonable urine production. As aresult, the patient was awakened from general anesthesia,transferred to a stretcher and then transferred to the recoveryroom in good condition.COMPLICATIONS: None.DISCHARGE DISPOSITION: He will be standard robot assistedlaparoscopic radical prostatectomy pathway with anticipateddischarge perhaps tomorrow evening or Sunday.WR/MODLDD: 02/26/2023 21:22:16DT: 02/27/2023 02:37:29Job #: [id number] signed by: RITA HUBBARD at 2023-02-26 21:22:16.000OPOperative [id number]: [id number]
[2023-09-05 08:56] LABS: Specific Gravity 1.005 (1.005-1.030); Urine Bilirubin NEGATIVE (Negative); Urine Blood Negative (Negative); Urine Clarity Clear (Clear); Urine Color Colorless (Yellow); Urine Glucose NEGATIVE (Negative); Urine Protein NEGATIVE (Negative); Urine Urobilinogen Normal (Normal)
[2023-09-05 09:26] LABS: Absolute Lymphocytes (CBC) 1.8 K/uL (0.7-4.9); Hematocrit 45.7 % (39.6-49.0); Lymphocytes % 15.3 % (15.3-44.8); MCV 90.5 fL (80-100); MPV 7.1 fL (7.6-11.3); Platelets 312 thou/uL (152-406); RBC Red Blood Cell Count 5.05 M/uL (4.33-5.43)
--- NOTE | 2023-09-05 10:24 | RAD REPORT ---
EXAM DESCRIPTION: CT - Stone Protocol - 09/05/2023 9:05 am CLINICAL HISTORY: suprapubic abd pain COMPARISON: Stone Protocol dated 05/18/2023; Abdomen Pelvis W Contrast dated 11/02/2022; Stone Protoc ol dated 10/28/2022; CT ABD PELVIS W CONTRAST dated 05/28/2015 TECHNIQUE: CT imaging of the abdomen and pelvis was performed without IV contrast. Multiplanar refor mats were generated and reviewed. All CT scans are performed using dose optimization technique as appropriate and may include automated exposure control or mA/KV adjustment according to patient size. FINDINGS: No suspicious findings in the lung bases. The liver, spleen, adrenal glands, and pancreas show no suspicious findings, with a stable subcapsula r suprahilar splenic 2.2 cm marginally calcified structure, suggestive of the organized hematoma or i nvoluting hemangioma. Gallbladder and biliary tree are also without suspicious finding. No hydronephrosis or suspicious renal mass. No significant adrenal finding. Isodense masses and pyel onephritis cannot be excluded in the absence of IV contrast. No dilated bowel loops or bowel wall thickening. No free air, free fluid or inflammatory stranding. N o hernia, mass or bulky lymphadenopathy. The urinary bladder is without significant finding. No suspicious bony findings. IMPRESSION: No acute intra-abdominal process.
--- NOTE | 2023-09-05 10:34 | ER ---
Nurse's Notes [facility] Name: Johnny Priest III Age: 52 yrs Sex: Male : 1970 Arrival Date: 09/05/2023 Time: 08:38 Bed 14 Private MD: Diagnosis: Lower abdominal pain, unspecified Presentation: 09/05 08:45 Chief complaint: Patient states: bladder pain since this morning , denies burning with iw urination, feels like he got punched. Coronavirus screen: At this time, the client does not indicate any symptoms associated with coronavirus-19. Ebola Screen: Patient negative for fever greater than or equal to 101.5 degrees Fahrenheit, and additional compatible Ebola Virus Disease symptoms Patient denies exposure to infectious person. Patient denies travel to an Ebola-affected area in the 21 days before illness onset. No symptoms or risks identified at this time. Initial Sepsis Screen: Does the patient meet any 2 criteria? No. Patient's initial sepsis screen is negative. Does the patient have a suspected source of infection? No. Patient's initial sepsis screen is negative. Risk Assessment: Do you want to hurt yourself or someone else? Patient reports no desire to harm self or others. Onset of symptoms was September 05, 2023. 08:45 Method Of Arrival: Ambulatory iw 08:45 Acuity: KENYATTA 3 iw Triage Assessment: 09:00 General: Appears in no apparent distress. uncomfortable, Behavior is cooperative, ko1 appropriate for age. Pain: Complains of pain in suprapubic area, right lower quadrant and left lower quadrant. Historical: - Allergies: 09:00 NKA; ko1 - PMHx: 09:00 ADD/ADHD; MANIC DEPRESSION; ko1 - PSHx: 09:00 prostate removal; ko1 - Immunization history:: Adult Immunizations unknown. - Social history:: Smoking status: Patient denies any tobacco usage or history of. - Family history:: not pertinent. - Hospitalizations: : No recent hospitalization is reported. Screenin:00 [facility] ED Fall Risk Assessment (Adult) History of falling in the last 3 months, ko1 including since admission No falls in past 3 months (0 pts) Confusion or Disorientation No (0 pts) Intoxicated or Sedated No (0 pts) Impaired Gait No (0 pts) Mobility Assist Device Used No (0 pt) Altered Elimination No (0 pt) Score/Fall Risk Level 0 - 2 = Low Risk Oriented to surroundings, Maintained a safe environment, Educated pt \T\ family on fall prevention, incl call for assistance when getting out of bed, Assessed \T\ reinforced patient's understanding of fall precautions, Provided non-skid footwear, Hourly rounding (assess needs \T\ fall precautionary measures) done, Used ambulatory aids as needed (educated on \T\ assisted with). Abuse screen: Denies threats or abuse. Denies injuries from another. Nutritional screening: No deficits noted. Tuberculosis screening: No symptoms or risk factors identified. Assessment: 09:00 Neuro: No deficits noted. Cardiovascular: No deficits noted. Respiratory: No deficits ko1 noted. GI: No deficits noted. : Reports pain in suprapubic area. EENT: No deficits noted. Derm: No deficits noted. Musculoskeletal: No deficits noted. Vital Signs: 09:00 BP 122 / 86; Pulse 68; Resp 16; Temp 97; Pulse Ox 99% on R/A; ko1 09:44 BP 121 / 83; Pulse 66; Resp 14; Pulse Ox 99% ; ko1 10:32 BP 109 / 84; Pulse 70; Resp 16; Pulse Ox 100% ; ko1 ED Course: 08:40 Patient arrived in ED. mr 08:41 Giovanni Leal MD is Attending Physician. rn 08:42 Monica Chavez, BBI is Primary Nurse. ko1 08:46 Triage completed. iw 08:52 Urinalysis w/ reflexes Sent. ko1 09:00 Inserted saline lock: 22 gauge in right antecubital area, using aseptic technique. ko1 Blood collected. 09:00 Arm band placed on right wrist. Patient placed in an exam room, on a stretcher, on ko1 pulse oximetry, Patient notified of wait time. 09:00 Patient has correct armband on for positive identification. Bed in low position. Call ko1 light in reach. Side rails up X 1. Provided Education on: ns. Pulse ox on. NIBP on. Door closed. Noise minimized. Lights dimmed. Warm blanket given. 09:07 CT Stone Protocol In Process Unspecified. EDMS 09:21 Basic Metabolic Panel Sent. ko1 09:21 CBC with Diff Sent. ko1 10:32 No provider procedures requiring assistance completed. IV discontinued, intact, ko1 bleeding controlled, No redness/swelling at site. Pressure dressing applied. Administered Medications: No medications were administered Medication: 10:32 VIS not applicable for this client. ko1 Outcome: :34 Discharge ordered by . rn : Discharged to home ambulatory, ko1 : Condition: stable 10:41 Discharge instructions given to patient, Instructed on discharge instructions, follow up and referral plans. Demonstrated understanding of instructions, follow-up care, : Patient left the ED. ko1 Signatures: Dispatcher [employer] EDIL Mallory Lofton, Reg Reg mr Jackie Blake, RN Giovanni Garcia MD MD rn Oliver, Kathy, RN RN ko1
--- NOTE | 2023-09-05 10:34 | EDPHYS ---
Physician Documentation [facility] Name: Johnny Priest III Age: 52 yrs Sex: Male : 1970 Arrival Date: 09/05/2023 Time: 08:38 Bed 14 Private MD: ED Physician Giovanni Leal HPI: 09/05 09:21 This 52 yrs old Male presents to ER via Ambulatory with complaints of Urinary Problem. rn 09:21 The patient presents with tenderness, that is mild. Onset: The symptoms/episode rn began/occurred this morning. Modifying factors: The symptoms are alleviated by nothing, the symptoms are aggravated by nothing. Severity of symptoms: At their worst the symptoms were moderate, in the emergency department the symptoms have improved. The patient has experienced similar episodes in the past. Patient reports here for bladder pain. Denies urinary symptoms. Able to empty. No hematuria. No fever. No history of kidney stones. Diagnosed with prostate cancer and had surgery 6 months ago. Reports this has not this multiple times in the past and goes away on its own. No history of recurrent UTIs. No hernias. No bowel complaints. No blood in stool. Has had mild diarrhea lately. Historical: - Allergies: 09:00 NKA; ko1 - PMHx: 09:00 ADD/ADHD; MANIC DEPRESSION; ko1 - PSHx: 09:00 prostate removal; ko1 - Immunization history:: Adult Immunizations unknown. - Social history:: Smoking status: Patient denies any tobacco usage or history of. - Family history:: not pertinent. - Hospitalizations: : No recent hospitalization is reported. ROS: 09:21 Constitutional: Negative for fever, chills, and weight loss, Cardiovascular: Negative rn for chest pain, palpitations, and edema, Respiratory: Negative for shortness of breath, cough, wheezing, and pleuritic chest pain, Abdomen/GI: Positive for suprapubic pain and diarrhea. Negative for blood in stool Back: Negative for injury and pain, : Negative for injury, bleeding, discharge, and swelling, MS/Extremity: Negative for injury and deformity, Neuro: Negative for headache, weakness, numbness, tingling, and seizure, Exam: 09:21 Constitutional: This is a well developed, well nourished patient who is awake, alert, rn and in no acute distress. Ambulatory to room without assistance or distress Head/Face: Normocephalic, atraumatic. Cardiovascular: Regular rate and rhythm. No pulse deficits. Respiratory: No increased work of breathing, no retractions or nasal flaring. Abdomen/GI: Soft, mild suprapubic tenderness. No rebound. No masses. Skin: Warm, dry MS/ Extremity: Pulses equal, no cyanosis. Neuro: Awake and alert, GCS 15, normal gait, normal strength throughout. Vital Signs: 09:00 BP 122 / 86; Pulse 68; Resp 16; Temp 97; Pulse Ox 99% on R/A; ko1 09:44 BP 121 / 83; Pulse 66; Resp 14; Pulse Ox 99% ; ko1 10:32 BP 109 / 84; Pulse 70; Resp 16; Pulse Ox 100% ; ko1 MDM: 08:41 Patient medically screened. rn 10:33 Differential diagnosis: nonspecific abdominal pain, appendicitis, UTI, urinary rn retention, prostatitis, urethritis. Data reviewed: vital signs, nurses notes, lab test result(s), radiologic studies, CT scan, and as a result, I will discharge patient. Counseling: I had a detailed discussion with the patient and/or guardian regarding the historical points, exam findings, and any diagnostic results supporting the discharge/admit diagnosis, lab results, radiology results, the need for outpatient follow up, to return to the emergency department if symptoms worsen or persist or if there are any questions or concerns that arise at home. Response to treatment: the patient's symptoms have markedly improved after treatment, and as a result, I will discharge patient. Special discussion: Based on the patient's Hx, exam, and Dx evaluation, there is no indication for emergent surgery or inpatient Tx. It is understood by the patient/guardian that if the Sx's persist or worsen they need to return immediately for re-evaluation. I discussed with the patient/guardian in detail that at this point there is no indication for admission to the hospital. It is understood, however, that if the symptoms persist or worsen the patient needs to return immediately for re-evaluation. Based on the history and exam findings, there is no indication for further emergent testing or inpatient evaluation. I discussed with the patient/guardian the need to see the urologist for further evaluation of the symptoms. ED course: Patient without acute findings. Urine clean. Pain much better on its own without intervention. CT abdomen pelvis without acute finding either. Will discharge with follow-up with his urologist Dr. Nguyen. I have personally reviewed all of the results, including but not limited to blood tests and imaging deemed necessary to safely discharge this patient at this time. All results given to and printed out for patient. I personally went over all the results with the patient and answered all questions. Patient will follow-up with PCP and or specialist as discussed. Return precautions given and understood.. 09/05 08:42 Order name: Urinalysis w/ reflexes; Complete Time: 09:29 rn 09/05 08:55 Order name: CBC with Diff; Complete Time: 09:48 rn 09/05 08:55 Order name: Basic Metabolic Panel; Complete Time: 09:48 rn 09/05 08:55 Order name: CT Stone Protocol; Complete Time: 10:27 rn 09/05 08:55 Order name: IV Start; Complete Time: 09:21 rn Administered Medications: No medications were administered Disposition Summary: 09/05/23 10:34 Discharge Ordered Notes: Location: Home rn Problem: new rn Symptoms: have improved rn Condition: Stable rn Diagnosis - Lower abdominal pain, unspecified rn Followup: rn - With: Private Physician - When: As needed - Reason: Recheck today's complaints, Re-evaluation by your physician Discharge Instructions: - Discharge Summary Sheet rn - Abdominal Pain, Adult rn - Pain Without a Known Cause rn Forms: - Medication Reconciliation Form rn - Thank You Letter 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 Denies urinary symptoms. Able to empty. No rn hematuria. No fever. No history of kidney stones. Diagnosed with prostate cancer and had surgery 6 months ago. Reports this has not this multiple times in the past and goes away on its own. No history of recurrent UTIs. No hernias.. rn
[2023-09-05 10:45] VITALS: TEMP 97
[2023-09-05 10:49] VITALS: BP 109/84; O2SAT 100
== END 2023-09-05 10:41 | disposition home or self-care (01) ==
LOC: ER 08:38
DX: R10.30 Lower abdominal pain, unspecified (principal); R19.7 Diarrhea, unspecified; Z85.46 Personal history of malignant neoplasm of prostate
CPT/HCPCS: 36415; 74176; 76377; 80048; 81003; 85025; 99284

== ENCOUNTER → 2023-12-25 | Emergency (ER) | payer OTHER ==
--- NOTE | 2023-12-25 08:59 | EDPHYS ---
Physician Documentation [facility] Name: Johnny Priest III Age: 53 yrs Sex: Male : 1970 Arrival Date: 12/25/2023 Time: 08:38 Bed IW1 Private MD: ED Physician Giovanni Leal HPI: 12/24 08:55 This 53 yrs old Male presents to ER via Ambulatory with complaints of Ear Bleeding. rn 08:55 The patient presents with a fullness. The complaints affect the right ear. Onset: The rn symptoms/episode began/occurred this morning. Modifying factors: The symptoms are alleviated by nothing, the symptoms are aggravated by nothing. Severity of symptoms: At their worst the symptoms were mild in the emergency department the symptoms are unchanged. The patient has not experienced similar symptoms in the past. Patient reports fullness in the right ear with slightly decreased hearing. Patient reports has history of cerumen impaction so has been using Debrox to try and get wax out. Reports has been able to remove wax but this morning noticed small drops of blood from the right ear. Denies any acute trauma or using Q-tip to affected ear.. Historical: - Allergies: 08:51 NKA; iw - PMHx: 08:51 ADD/ADHD; MANIC DEPRESSION; iw - PSHx: 08:51 prostate removal; iw - Immunization history:: Adult Immunizations unknown. - Social history:: Smoking status: unknown. - Family history:: not pertinent. - Hospitalizations: : No recent hospitalization is reported. ROS: 08:55 Constitutional: Negative for fever, chills, and weight loss, Eyes: Negative for injury, rn pain, redness, and discharge, ENT: Positive for fullness to right ear and blood from right ear Neck: Negative for injury, pain, and swelling, Cardiovascular: Negative for chest pain, palpitations, and edema, Neuro: Negative for headache, weakness, numbness, tingling, and seizure, Exam: 08:55 Constitutional: This is a well developed, well nourished patient who is awake, alert, rn and in no acute distress. ENT: Right external auditory canal with dried blood, no active bleeding or lesions. Tympanic membrane with small amount of fluid behind it without erythema or bulging. No evidence of perforation or foreign body. Vital Signs: 08:49 BP 125 / 81; Pulse 78; Resp 16; Temp 97.9; Pulse Ox 100% ; iw MDM: 08:48 Patient medically screened. rn 08:57 Differential diagnosis: otitis media, otitis externa, foreign body, acute otalgia, rn cerumen impaction, serotympanum. Data reviewed: vital signs, nurses notes, and as a result, I will discharge patient. Counseling: I had a detailed discussion with the patient and/or guardian regarding the historical points, exam findings, and any diagnostic results supporting the discharge/admit diagnosis, the need for outpatient follow up, to return to the emergency department if symptoms worsen or persist or if there are any questions or concerns that arise at home. Special discussion: I discussed with the patient/guardian in detail that at this point there is no indication for admission to the hospital. It is understood, however, that if the symptoms persist or worsen the patient needs to return immediately for re-evaluation. Administered Medications: No medications were administered Disposition Summary: 12/25/23 08:59 Discharge Ordered Notes: Location: Home rn Problem: new rn Symptoms: have improved rn Condition: Stable rn Diagnosis - Acute serous otitis media, right ear rn Followup: rn - With: Helga Gross MD - When: As needed - Reason: Recheck today's complaints, Re-evaluation by your physician Discharge Instructions: - Discharge Summary Sheet rn - Ear Drops, Adult rn - Otitis Media, Adult rn Forms: - Work release form iw - Medication Reconciliation Form rn - Thank You Letter rn - Antibiotic policy intern - Prescription Opioid Use rn - Patient Portal Instructions rn - Leadership Thank You Letter rn Prescriptions: - Zithromax Z-Remy 250 mg Oral Tablet - take 1 tablet ORAL route as directed for 5 days Day 1 - take two (2) tablets rn one time. Day 2, 3, 4 , 5 take one (1) tablet once daily.; 6 tablet; Refills: 0, Product Selection Permitted - Ciprodex 0.3-0.1 % Otic drops, suspension - instill 4 drops OTIC route every 12 hours for 7 days , for ears ONLY; 1 unit; rn Refills: 0, Product Selection Permitted Signatures: Jackie Blake RN RN iw Giovanni Leal MD MD glass furnace tender: (The following items were deleted from the chart) 08:57 08:55 Constitutional: This is a well developed, well nourished patient who is awake, rn alert, and in no acute distress. rn
--- NOTE | 2023-12-25 08:59 | ER ---
Nurse's Notes [facility] Name: Johnny Priest III Age: 53 yrs Sex: Male : 1970 Arrival Date: 12/25/2023 Time: 08:38 Bed IW1 Private MD: Diagnosis: Acute serous otitis media, right ear Presentation: 12/24 08:49 Chief complaint: Patient states: had a lot of wax in right ear and this morning there iw was blood on the cotton ball he placed in his ear. Coronavirus screen: At this time, the client does not indicate any symptoms associated with coronavirus-19. Ebola Screen: Patient negative for fever greater than or equal to 101.5 degrees Fahrenheit, and additional compatible Ebola Virus Disease symptoms Patient denies exposure to infectious person. Initial Sepsis Screen: Does the patient meet any 2 criteria? No. Patient's initial sepsis screen is negative. Does the patient have a suspected source of infection? No. Patient's initial sepsis screen is negative. Risk Assessment: Do you want to hurt yourself or someone else? Patient reports no desire to harm self or others. Onset of symptoms was December 25, 2023. 08:49 Method Of Arrival: Ambulatory iw 08:49 Acuity: KENYATTA 4 iw Historical: - Allergies: 08:51 NKA; iw - PMHx: 08:51 ADD/ADHD; MANIC DEPRESSION; iw - PSHx: 08:51 prostate removal; iw - Immunization history:: Adult Immunizations unknown. - Social history:: Smoking status: unknown. - Family history:: not pertinent. - Hospitalizations: : No recent hospitalization is reported. Screenin:54 [facility] ED Fall Risk Assessment (Adult) Score/Fall Risk Level 0 - 2 = Low Risk. Abuse iw screen: Denies threats or abuse. Denies injuries from another. Nutritional screening: No deficits noted. Tuberculosis screening: No symptoms or risk factors identified. Assessment: 08:53 General: Appears in no apparent distress. Behavior is calm, cooperative. Pain: iw Complains of pain in right ear. Neuro: Level of Consciousness is awake, alert, obeys commands, Oriented to person, place, time, situation, Moves all extremities. Full function. Cardiovascular: Patient's skin is warm and dry. Respiratory: Respiratory effort is even, unlabored, Respiratory pattern is regular. GI: No signs and/or symptoms were reported involving the gastrointestinal system. EENT: Reports pain in right ear. Derm: Skin is intact, is healthy with good turgor. Musculoskeletal: Range of motion: intact in all extremities. Vital Signs: 08:49 BP 125 / 81; Pulse 78; Resp 16; Temp 97.9; Pulse Ox 100% ; iw ED Course: 08:41 Patient arrived in ED. mg5 08:48 Giovanni Leal MD is Attending Physician. rn 08:51 Triage completed. iw 08:51 Arm band placed on. iw 08:53 Patient has correct armband on for positive identification. Provided Education on: POC. iw 08:54 No provider procedures requiring assistance completed. Patient did not have IV access iw during this emergency room visit. 08:58 Helga Gross MD is Referral Physician. rn 09:04 Jackie Blake RN is Primary Nurse. iw Administered Medications: No medications were administered Medication: 08:54 VIS not applicable for this client. iw Outcome: 08:59 Discharge ordered by MD. rn 09:14 Discharged to home ambulatory, iw 09:14 Condition: good 09:14 Discharge instructions given to patient, Instructed on discharge instructions, follow up and referral plans. medication usage, Demonstrated understanding of instructions, follow-up care, medications, Prescriptions given X 2, 09:15 Patient left the ED. iw Signatures: Jackie lBake RN RN Giovanni Leal MD MD rn [place], [place] mg5
[2023-12-25 09:26] VITALS: BP 125/81; TEMP 97.9; O2SAT 100
== END ==
LOC: ER 08:38
DX: H65.01 Acute serous otitis media, right ear (principal)

== ENCOUNTER 2024-07-26 08:41 | Emergency (ER) | payer OTHER ==
[2024-07-26 09:20] LABS: Absolute Basophils 0.1 K/uL (0-0.5); Absolute Eosinophils 0.4 K/uL (0-0.5); Absolute Lymphocytes (CBC) 1.5 K/uL (0.7-4.9); Absolute Monocytes 0.8 K/uL (0.1-1.3); Absolute Neutrophil 9.4 K/uL (1.8-8.0); Eosinophils % 3.3 % (0-4.4); Hematocrit 43.7 % (39.6-49.0); Hemoglobin 15.2 g/dL (13.6-17.9); Lymphocytes % 12.2 % (15.3-44.8); MCH 31.6 pg (27.0-35.0); MCHC 34.7 g/dL (32.0-36.0); MCV 90.9 fL (80-100); MPV 6.8 fL (7.6-11.3); Monocytes % 6.7 % (3.3-12.3); Neutrophils % 76.8 % (41.7-73.7); Nucleated Red Blood Cells % 0.1 % (0-0); Platelets 305 thou/uL (152-406); RBC Red Blood Cell Count 4.81 M/uL (4.33-5.43); Red Cell Distribution Width 13.9 % (12.1-15.2)
[2024-07-26] MEDS ORDERED: ONDANSETRON 4 MG/2 ML VIAL ONE (09:24)
[2024-07-26] MEDS ORDERED: LORazepam 2 MG/ML VIAL ONE (09:24)
[2024-07-26] MEDS ORDERED: ASPIRIN 81 MG CHEWABLE TABLET ONE (09:25)
[2024-07-26 09:36] LABS: Anion Gap 8.8 mEq/L (5.0-15.0); Potassium 3.8 mEq/L (3.5-5.1); Troponin High Sensitivity 4.2 pg/mL (<58.9)
--- NOTE | 2024-07-26 10:32 | RAD REPORT ---
EXAMINATION: ONE VIEW CHEST XR CLINICAL INDICATION: CHEST PAIN TECHNIQUE: Frontal chest projection is submitted. Examination is limited by patient positioning and t echnique. COMPARISON: 10/18/2023 FINDINGS: The lungs are well inflated and clear. The heart is normal in size. No displaced fractures identified . IMPRESSION: No acute intrathoracic abnormalities.
--- NOTE | 2024-07-26 12:31 | EDPHYS ---
Physician Documentation [facility] Name: Johnny Priest III Age: 53 yrs Sex: Male : 1970 Arrival Date: 07/26/2024 Time: 08:41 Bed 15 Private MD: ED Physician Francisco Granger HPI: 07/26 09:05 This 53 yrs old Male presents to ER via Ambulatory with complaints of Chest Pain. kb 09:05 Pt is a 53 year old male who presents for left sided chest pain that started at 0830 kb this morning. States he had associated dizziness, nausea and "pins and needles" in digits 3-5 on left hand. Denies shortness of breath. Denies alleviating or aggravating factors. . Historical: - Allergies: 08:48 NKA; ll1 - PMHx: 08:48 ADD/ADHD; MANIC DEPRESSION; ll1 - PSHx: 08:48 prostate removal; ll1 - Immunization history:: Adult Immunizations up to date. - Infectious Disease History:: Denies. - Social history:: Smoking status: Patient reports the use of cigarette tobacco products, smokes one-half pack cigarettes per day. ROS: 09:04 Constitutional: As per HPI kb Exam: 09:02 Constitutional: This is a well developed, well nourished patient who is awake, alert, kb and in no acute distress. Head/Face: Normocephalic, atraumatic. ENT: Moist Mucous membranes Cardiovascular: Regular rate Respiratory: Respirations even and unlabored. No increased work of breathing. Talking in full sentences Abdomen/GI: Soft, non-tender. No distention Skin: Warm, dry with normal turgor. Normal color. MS/ Extremity: Pulses equal, no cyanosis. Neurovascular intact. Full, normal range of motion. Neuro: Awake and alert, GCS 15, oriented to person, place, time, and situation. Moves all extremities. Normal gait. 09:02 ECG was reviewed by the Attending Physician. Vital Signs: 08:52 Resp 17; Temp 97.8; Weight 90.72 kg; Height 5 ft. 9 in. ; Pain 4/10; ll1 09:09 BP 130 / 83; Pulse 76; Resp 18; Pulse Ox 98% on R/A; ph 10:13 BP 116 / 77; Pulse 68; Resp 16 S; Pulse Ox 98% on R/A; kc6 11:13 BP 120 / 78; Pulse 60; Resp 14 S; Pulse Ox 96% on R/A; kc6 12:27 BP 105 / 68; Pulse 69; Resp 17 S; Pulse Ox 97% on R/A; Pain 0/10; kc6 08:52 Body Mass Index 29.53 (90.72 kg, 175.26 cm) ll1 08:52 Pain Scale: Adult ll1 12:27 Pain Scale: Adult kc6 MDM: 08:55 Patient medically screened. kb 12:30 Data reviewed: vital signs, nurses notes. ED course: Pt feeling better after treatment. kb . 12:30 Differential diagnosis: acute mi, arrhythmia, pe, anxiety. Consideration of kb Admission/Observation Escalation of care including admission/observation considered. admission considered for chest pain, but HEART score 1 and serial troponins negative. Pt reports resolution of symptoms after ativan. . Counseling: I had a detailed discussion with the patient and/or guardian regarding the historical points, exam findings, and any diagnostic results supporting the discharge/admit diagnosis, lab results, radiology results, the need for outpatient follow up, a family practitioner, to return to the emergency department if symptoms worsen or persist or if there are any questions or concerns that arise at home. 07/26 08:52 Order name: Basic Metabolic Panel; Complete Time: 09:37 ec2 07/26 08:52 Order name: CBC with Diff; Complete Time: 09:21 ec2 07/26 08:52 Order name: Troponin HS; Complete Time: 09:37 ec2 07/26 11:35 Order name: Troponin High Sensitivity; Complete Time: 12:10 kb 07/26 08:52 Order name: XRAY Chest (1 view); Complete Time: 10:32 ec2 07/26 08:52 Order name: EKG; Complete Time: 08:53 ec2 07/26 08:52 Order name: Cardiac monitoring; Complete Time: 08:58 ec2 07/26 08:52 Order name: EKG - Nurse/Tech; Complete Time: 08:58 ec2 07/26 08:52 Order name: IV Saline Lock; Complete Time: 09:08 ec2 07/26 08:52 Order name: Labs collected and sent; Complete Time: 09:08 ec2 07/26 08:52 Order name: O2 Per Protocol; Complete Time: 09:08 ec2 07/26 08:52 Order name: O2 Sat Monitoring; Complete Time: : ec2 EC:02 Rate is 74 beats/min. Rhythm is regular. QRS [place] is Normal. MO interval is normal at kb 132 msec. QRS interval is normal at 108 msec. QT interval is normal at 439 msec. Administered Medications: 09:36 Drug: Aspirin PO Chewable Tablet 324 mg PO once; 81 mg tablets x 4 Route: PO; ph 10:13 Follow up: Response: No adverse reaction 6 09:36 Drug: Ondansetron IVP 4 mg IVP once; over 2 minutes Route: IVP; Site: right antecubital;ph 10:13 Follow up: Response: No adverse reaction 6 09:36 Drug: Ativan IVP 0.5 mg IVP once Route: IVP; Site: right antecubital; ph 10:13 Follow up: Response: No adverse reaction; Anxiety decreased; RASS: Alert and Calm (0) kc6 Disposition Summary: 07/26/24 12:30 Discharge Ordered Notes: Location: Home kb Condition: Stable kb Diagnosis - Chest pain, unspecified kb Followup: kb - With: Emergency Department - When: As needed - Reason: Worsening of condition Followup: kb - With: Private Physician - When: 2 - 3 days - Reason: Recheck today's complaints, Continuance of care, Re-evaluation by your physician Discharge Instructions: - Discharge Summary Sheet kb - Nonspecific Chest Pain, Adult, [id number] kb Forms: - Medication Reconciliation Form kb - Antibiotic Education kb - Prescription Opioid Use kb - Patient Portal Instructions kb - Leadership Thank You Letter kb - Work release form kc6 Addendum: 07/28/2024 09:19 I was immediately available for consultation during this patient's visit. I did not e c2 personally see the patient or discuss the patient with the ODALIS. . Signatures: Dispatcher [employer] Marla Loja FNP-C FNP-Tricia Burgos, RN RN ph Isai Richardson RN RN ll1 Francisco Granger MD MD ec2 Ginger Butt RN kc6
--- NOTE | 2024-07-26 12:31 | ER ---
Nurse's Notes [facility] Name: Johnny Priest III Age: 53 yrs Sex: Male : 1970 Arrival Date: 07/26/2024 Time: 08:41 Bed 15 Private MD: Diagnosis: Chest pain, unspecified Presentation: 07/26 08:52 Chief complaint: Patient states: Mid CP for 15 min [employer]. Coronavirus screen: Client ll1 denies travel out of the [place] in the last 14 days. At this time, the client does not indicate any symptoms associated with coronavirus-19. Ebola Screen: Patient denies travel to an Ebola-affected area in the 21 days before illness onset. Initial Sepsis Screen: Does the patient meet any 2 criteria? No. Patient's initial sepsis screen is negative. Does the patient have a suspected source of infection? No. Patient's initial sepsis screen is negative. Risk Assessment: Do you want to hurt yourself or someone else? Patient reports no desire to harm self or others. Onset of symptoms was July 26, 2024. 08:52 Method Of Arrival: Ambulatory ll1 08:52 Acuity: KENYATTA 3 ll1 Triage Assessment: 08:50 General: Appears distressed, uncomfortable, Behavior is calm, cooperative, appropriate ll1 for age. Pain: Complains of pain in chest Quality of pain is described as pressure. Cardiovascular: Reports chest pain. Historical: - Allergies: 08:48 NKA; ll1 - PMHx: 08:48 ADD/ADHD; MANIC DEPRESSION; ll1 - PSHx: 08:48 prostate removal; ll1 - Immunization history:: Adult Immunizations up to date. - Infectious Disease History:: Denies. - Social history:: Smoking status: Patient reports the use of cigarette tobacco products, smokes one-half pack cigarettes per day. Screenin:55 [facility] ED Fall Risk Assessment (Adult) History of falling in the last 3 months, ph including since admission No falls in past 3 months (0 pts) Confusion or Disorientation No (0 pts) Intoxicated or Sedated No (0 pts) Impaired Gait No (0 pts) Mobility Assist Device Used No (0 pt) Altered Elimination Yes (1 pt) Score/Fall Risk Level 0 - 2 = Low Risk Oriented to surroundings, Maintained a safe environment, Hourly rounding (assess needs \T\ fall precautionary measures) done. Abuse screen: Denies threats or abuse. Denies injuries from another. Nutritional screening: No deficits noted. Tuberculosis screening: No symptoms or risk factors identified. Assessment: 09:36 General: Appears in no apparent distress. Behavior is calm, cooperative. Pain: ph Complains of pain in mid-sternal area Pain does not radiate. Pain began 2 hours ago. Neuro: Level of Consciousness is awake, alert, obeys commands, Oriented to person, place, time, situation. Cardiovascular: Reports chest pain, nausea. Respiratory: Airway is patent Respiratory effort is even, unlabored. Derm: Skin is pink, warm \T\ dry. 10:13 Reassessment: Patient appears in no apparent distress at this time. No changes from [facility] previously documented assessment. Patient and/or family updated on plan of care and expected duration. Pain level reassessed. Patient is alert, oriented x 3, equal unlabored respirations, skin warm/dry/pink. 11:13 Reassessment: Patient appears in no apparent distress at this time. No changes from kc6 previously documented assessment. Patient and/or family updated on plan of care and expected duration. Pain level reassessed. Patient is alert, oriented x 3, equal unlabored respirations, skin warm/dry/pink. 12:27 Reassessment: Patient appears in no apparent distress at this time. No changes from 6 previously documented assessment. Patient and/or family updated on plan of care and expected duration. Pain level reassessed. Patient is alert, oriented x 3, equal unlabored respirations, skin warm/dry/pink. Patient states feeling better. Patient states symptoms have improved. Vital Signs: 08:52 Resp 17; Temp 97.8; Weight 90.72 kg; Height 5 ft. 9 in. ; Pain 4/10; ll1 09:09 BP 130 / 83; Pulse 76; Resp 18; Pulse Ox 98% on R/A; ph 10:13 BP 116 / 77; Pulse 68; Resp 16 S; Pulse Ox 98% on R/A; kc6 11:13 BP 120 / 78; Pulse 60; Resp 14 S; Pulse Ox 96% on R/A; kc6 12:27 BP 105 / 68; Pulse 69; Resp 17 S; Pulse Ox 97% on R/A; Pain 0/10; kc6 08:52 Body Mass Index 29.53 (90.72 kg, 175.26 cm) ll1 08:52 Pain Scale: Adult ll1 12:27 Pain Scale: Adult kc6 ED Course: 08:42 Patient arrived in ED. mg5 08:46 Arm band placed on Patient placed in an exam room, on a stretcher. ll1 08:48 Tricia Mesa RN is Primary Nurse. ph 08:53 Triage completed. ll1 08:55 Marla Philippe FNP-C [facility]. kb 08:55 Francisco Granger MD is Attending Physician. kb 08:56 Patient has correct armband on for positive identification. Placed in gown. Bed in low ph position. Call light in reach. Side rails up X 1. Client placed on continuous cardiac and pulse oximetry monitoring. NIBP monitoring applied. playground monitor on. Door closed. Noise minimized. Warm blanket given. 08:56 Patient maintains SpO2 saturation greater than 95% on room air. ph 08:58 EKG done, by ED staff, reviewed by Marla HAIR. em1 09:08 Basic Metabolic Panel Sent. ph 09:08 CBC with Diff Sent. ph 09:08 Troponin HS Sent. ph 09:09 Initial lab(s) drawn, by nd, sent to lab. Inserted saline lock: 20 gauge in right ph antecubital area, using aseptic technique. Blood collected. Flushed with 10 mL NS. 10:12 Report received from Tricia Mesa RN. kc6 10:15 XRAY Chest (1 view) In Process Unspecified. EDMS 11:42 Troponin High Sensitivity Sent. kc6 12:43 No provider procedures requiring assistance completed. IV discontinued, intact, kc6 bleeding controlled, No redness/swelling at site. Pressure dressing applied. Administered Medications: 09:36 Drug: Aspirin PO Chewable Tablet 324 mg PO once; 81 mg tablets x 4 Route: PO; ph 10:13 Follow up: Response: No adverse reaction kc6 09:36 Drug: Ondansetron IVP 4 mg IVP once; over 2 minutes Route: IVP; Site: right antecubital;ph 10:13 Follow up: Response: No adverse reaction kc6 09:36 Drug: Ativan IVP 0.5 mg IVP once Route: IVP; Site: right antecubital; ph 10:13 Follow up: Response: No adverse reaction; Anxiety decreased; RASS: Alert and Calm (0) kc6 Medication: 08:56 VIS not applicable for this client. ph Outcome: 12:30 Discharge ordered by MD. cevallos 12:43 Discharged to home ambulatory, with friend, kc6 12:43 Condition: improved 12:43 Discharge instructions given to patient, Instructed on discharge instructions, follow up and referral plans. no drinking with medication, no driving heavy equipment, Demonstrated understanding of instructions, follow-up care, 12:44 Patient left the ED. kc6 Signatures: Dispatcher [employer] EDMS Marla Philippe, IT INTERN-C IT INTERN-Ryland Gupta em1 Tricia Mesa RN RN Isai Guardado RN RN ll1 Ginger Butt RN RN kc6 Torie Hart 5
[2024-07-26 14:22] VITALS: TEMP 97.8
[2024-07-26 14:26] VITALS: BP 105/68; O2SAT 97
--- NOTE | 2024-07-31 12:13 | EKG ---
Test Date: 2024-07-26 Test Time: 08:50:31 Senior Recruitment Consultant: MARGARET MEASUREMENT RESULTS: Intervals: Rate: 74 MO: 132 QRSD: 108 QT: 396 QTc: 439 [place]: P: 50 MO: 132 QRS: 26 T: 47 INTERPRETIVE STATEMENTS: Normal sinus rhythm Incomplete right bundle branch block Borderline ECG Compared to ECG 10/18/2023 12:14:40 Incomplete right bundle-branch block now present Electronically Signed On 07-31-24 11:58:55 CDT by Denton Butt
== END 2024-07-26 12:44 | disposition home or self-care (01) ==
LOC: ER 08:41
DX: R07.9 Chest pain, unspecified (principal); R42 Dizziness and giddiness; R11.0 Nausea; F17.210 Nicotine dependence, cigarettes, uncomplicated
CPT/HCPCS: 93005; 85025; 80048; 36415; 84484 ×2; 71045; J2405; 96374; 96375; 99285